=== PATIENT | male | born 1945 | race Caucasian/White ===

== ENCOUNTER 2020-06-06 10:33 | Emergency (ER) | payer OTHER, SELFPAY ==
--- NOTE | ~2020-06-06 | XR_ITS ---
EXAMINATION: XR FOOT, LEFT CLINICAL INFORMATION: Left toe wound. Evaluate for osteomyelitis. COMPARISON: None TECHNIQUE: AP, lateral, and oblique views of the left foot. FINDINGS: The bones are osteopenic. No fracture or dislocation is seen. There are contractures and degenerative changes of the toes. There are degenerative changes at the first MTP joint. There is bone loss of the medial first metatarsal head questionable for postsurgical change. No x-ray evidence of osteomyelitis is seen. There are calcaneal spurs. There is soft tissue arterial calcification. XR/XR foot LT min 3V IMPRESSION: No x-ray evidence of osteomyelitis. Severe osteopenia.
[2020-06-06 10:53] VITALS: BP 136/84; PULSE 108; RESP 18; TEMP 37.2; O2SAT 98
[2020-06-06 11:02] VITALS: BP 136/84; BP 142/70; PULSE 100; PULSE 108; RESP 18; TEMP 37.2; O2SAT 97; O2SAT 98; BMI 26.6
[2020-06-06 11:21] LABS: MANUAL DIFF FLAG NO
[2020-06-06 11:23] LABS: Basophils Absolute Auto 0.1 X10*3/uL (0.0-0.2); Basophils Percent Auto 0.7 % (0-2); Eosinophils Absolute Auto 0.5 X10*3/uL (0.0-0.4); Eosinophils Percent Auto 5.2 % (0-4); Hematocrit 40.6 % (42-52); Hemoglobin 13.3 g/dl (14.0-18.0); Imm Gran Abs Auto 0.02 X10*3/uL (0.00-0.03); Imm Gran Pct Auto 0.2 % (0.0-0.4); Lymphocytes Absolute Auto 1.2 X10*3/uL (1.2-4.9); Lymphocytes Percent Auto 14.1 % (20-40); Mean Corpuscular HGB Conc 32.8 g/dl (31.0-36.0); Mean Corpuscular Volume 97.6 fL (80-98); Mean Platelet Volume 10.3 fL (9.4-12.4); Monocytes Absolute Auto 0.4 X10*3/uL (0.1-1.2); Neutrophils Absolute Auto 6.5 X10*3/uL (2.0-8.3); Neutrophils Percent Auto 74.8 % (45-73); Platelet Count 236 X10*3/uL (160-400); Red Blood Count 4.16 X10*6/uL (4.60-5.80); Red Cell Distribution Width 14.6 % (11.0-16.0); White Blood Count 8.6 X10*3/uL (4.8-10.8)
[2020-06-06 11:30] LABS: Partial Thromboplastin Time 56.8 SEC (24.1-38.0)
[2020-06-06 11:34] LABS: Prothrombin Time 72.1 SEC (10.8-13.0)
[2020-06-06 11:53] LABS: Lactic Acid 2.4 mmol/L (0.5-2.0)
[2020-06-06 12:32] LABS: Glucose Urine UA NEG (NEG); Leukocyte Esterase Urine NEG (NEG); Nitrite Urine NEG (NEG); Urine Blood NEG (NEG); Urine Ketones NEG (NEG); Urine Protein NEG (NEG-TRACE)
[2020-06-06 12:34] LABS: Appearance Urine CLEAR; Color Urine YELLOW
[2020-06-06 13:19] LABS: Reflex Lactate? Lactic Acid Added
[2020-06-06] MEDS: 0.9 % Sodium Chloride 500 ML IV (13:31)
[2020-06-06 14:16] LABS: RBC Urine 0 /HPF (0); Squamous Epithelial Cell Urine 1+ /LPF; Urine Talc Crystals TRACE /LPF; WBC Urine 0 /HPF (0-4)
[2020-06-06 14:36] LABS: Alanine Aminotransferase 14 U/L (0-40); Albumin Level 3.5 g/dL (3.5-5.0); Alkaline Phosphatase 108 U/L (39-117); Anion Gap 13 (12-20); Aspartate Amino Transferase 15 U/L (5-37); Bilirubin Total 0.4 mg/dL (0.0-1.0); Blood Urea Nitrogen 11 mg/dL (9-16); Calcium 8.3 mg/dL (8.4-10.2); Carbon Dioxide 25 mmol/L (22-29); Chloride 107 mmol/L (96-108); Creatinine Clr Calc Pharmacy 82.8; Estimated Glomerular Filt Rate > 60; Glucose Random 154 mg/dL (60-115); Potassium 4.4 mmol/L (3.3-5.1); Sodium 141 mmol/L (135-145)
[2020-06-06 14:38] LABS: ~Lactic Acid-LAB USE ONLY 2.4 mmol/L (0.5-2.0)
--- NOTE | 2020-06-06 14:48 | ED_ITS ---
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 Per son who is his healthcare proxy reports that he initially stop that on a door a months or so ago it was healing okay and about 4 days ago it started open back up and noticed that there was a blistering type formation on top of the toe. He denies any fever or chills. Otherwise has no other complaints. complaint: abscess/boil Onset (ago): day(s) Tetanus up to date: yes Exacerbating factors: none Treatments prior to arrival: none Related Data Previous Rx's Medication Instructions Recorded doxycycline monohydrate 100 mg PO BID 10 Days #20 cap 06/06/20 Allergies Allergy/AdvReac Type Severity Reaction Status Date / Time No Known Allergies Allergy Verified 06/06/20 11:01 [No Known Allergies*] Review of Systems Review of Systems: Constitutional: No Weight loss, No Fever, No Chills, No Night Sweats, No Fatigue, No Malaise ENT/Mouth: No Hearing loss, No Ear Pain, No Nasal Congestion, No Sinus Pain, No Hoarseness, No sore throat, No Rhinorrhea, No Swallowing Difficulty Eyes: No Eye Pain, No Swelling, No Redness, No Foreign Body, No Discharge, No Vision Changes Cardiovascular: No Chest Pain, No SOB, No Dyspnea on Exertion, No Orthopnea, No Edema, No Palpitations Respiratory: No Cough, No Sputum, No Wheezing, No Dyspnea Gastrointestinal: No Nausea, No Vomiting, No Diarrhea, No Constipation, No abdominal Pain, No Hematochezia, No Melena Genitourinary: No Dysuria, No Urinary Frequency, No Hematuria, No Urinary Incontinence, No Urgency, No Flank Pain, No Urinary Flow Changes, No Hesitancy Musculoskeletal: No joint pain, No Myalgias, No Joint Swelling Skin: No Skin Lesions, No rash, , as noted per HPI Neuro: No Weakness, No Numbness, No Paresthesias, No Loss of Consciousness, No Dizziness, No Headache Psych: No Social Issues Heme/Lymph: No Bruising, No Bleeding,No Lymphadenopathy Endocrine: No Polyuria, No Polydipsia, No Temperature Intolerance Yes all other systems are reviewed and are negative [facility] Past Medical History Medical History (Updated 06/06/20 @ 15:29 by Dario Patterson NP) CVA (cerebral vascular accident) Diabetes Hyperlipidemia Social History Social History Alcohol intake: never Smoking Status: Never smoker Use of substances other than those prescribed or required for medical reasons: No Advance Directives: No Advance Directives Information Provided: Yes Physical Exam Vital Signs: Vital Signs: Last Vital Signs Temp 99 F 06/06/20 15:12 Pulse 104 H 06/06/20 15:12 Resp 17 06/06/20 15:12 BP 127/76 06/06/20 15:12 Pulse Ox 97 06/06/20 15:12 Body Mass Index 26.6 Reviewed Const: Other: Appears in contracted state on the left side Found patient of stated age lying supine in bed smiling with greeting. In no acute distress. General: cooperative; No acute distress or intoxicated appearing Nutritional Appearance: average body habitus Orientation/consciousness: patient oriented x3 HENMT: Head: Yes normal to inspection Ears: hearing grossly normal bilaterally Eyes: General: appearance normal, both eyes and all related structures Visual Nunez: normal visual nunez by confrontation Neck: Neck: Yes normal visual inspection, No positive Brudzinski's sign, No positive Kernig's sign and No tender Thyroid: Thyroid normal Chest: Chest palpation & inspection: normal inspection of the chest Resp: Effort & Inspection: normal respiratory effort Auscultation: clear to auscultation bilaterally Cardio: Jugular venous distension: no JVD Rhythm: regular rhythm Heart sounds: S1 normal heart sound present and S2 normal heart sound present GI: Inspection: Yes normal to inspection Percussion: Yes normal to percussion Auscultation: normal bowel sounds : General: Yes no CVA tenderness Back/Spine/Pelvis: Back: no CVA tenderness Skin: Other: General skin exam: no rashes or lesions noted Neuro: General: patient oriented x3 Extrem: General: Yes normal to inspection Right upper extremity: full ROM Course Course Course Narrative: Labs without evidence of leukocytosis. Slight lactic acidosis type 2 likely secondary to the anti diabetic medication. Case discussed with Dr. Lucas who came and evaluated patient at bedside was able to de roof the granulated area over the toe and had some purulent discharge or anything that was cleared out and cauterized using cautery sticks. No overt signs of infection. Given the labs are reassuring recommendation by Dr. Lucas was to send patient home with close outpatient follow-up and can make referrals to wound care from office. I spoke to patient as well as the son who is the healthcare proxy and primary caregiver agreeable plan. Will discharge home with doxycycline x 10 days Reevaluation(s) Reevaluation #1: Lab shows supratherapeutic INR of 6 he is on Coumadin will hold next 2 doses and have repeat on Thursday prior to taking his Coumadin. Consultations Consultation #1: Case discussed with general surgeon Dr. Lucas who came to evaluate patient at bedside. MDM - Skin/Abscess/Foreign Bdy Lab Data Result diagrams: 06/06/20 11:13 06/06/20 13:53 Labs: Lab Results 06/06/20 06/06/20 06/06/20 Range/Units 11:13 11:13 11:13 WBC 8.6 (4.8-10.8) X10*3/uL RBC 4.16 L (4.60-5.80) X10*6/uL Hgb 13.3 L (14.0-18.0) g/dl Hct 40.6 L (42-52) % MCV 97.6 (80-98) fL MCH 32.0 (27.0-33.0) pg MCHC 32.8 (31.0-36.0) g/dl RDW 14.6 (11.0-16.0) % Plt Count 236 (160-400) X10*3/uL MPV 10.3 (9.4-12.4) fL Immature Gran % (Auto) 0.2 (0.0-0.4) % Neut % (Auto) 74.8 H (45-73) % Lymph % (Auto) 14.1 L (20-40) % [place] % (Auto) 5.0 (2-11) % Eos % (Auto) 5.2 H (0-4) % Baso % (Auto) 0.7 (0-2) % Lymph # (Auto) 1.2 (1.2-4.9) X10*3/uL [place] # (Auto) 0.4 (0.1-1.2) X10*3/uL Eos # (Auto) 0.5 H (0.0-0.4) X10*3/uL Baso # (Auto) 0.1 (0.0-0.2) X10*3/uL Abs Immat Gran (auto) 0.02 (0.00-0.03) X10*3/uL Absolute Neuts (auto) 6.5 (2.0-8.3) X10*3/uL Absolute Nucleated RBC 0.000 (0.0-0.012) X10*3/uL Nucleated RBC % (auto) 0.0 (0.0-0.2) /100WBC PT 72.1 H (10.8-13.0) SEC INR 6.0 H* (0.9-1.1) APTT 56.8 H (24.1-38.0) SEC Sodium (135-145) mmol/L Potassium (3.3-5.1) mmol/L Chloride (96-108) mmol/L Carbon Dioxide (22-29) mmol/L Anion Gap (12-20) BUN (9-16) mg/dL Creatinine (0.5-1.4) mg/dL Estim Creat Clear Calc Estimated GFR Random Glucose (60-115) mg/dL Lactic Acid 2.4 H* (0.5-2.0) mmol/L Lactic Acid Fup @ 2Hr (0.5-2.0) mmol/L Calcium (8.4-10.2) mg/dL Total Bilirubin (0.0-1.0) mg/dL AST (5-37) U/L ALT (0-40) U/L Alkaline Phosphatase (39-117) U/L Total Protein (6.5-8.0) g/dL Albumin (3.5-5.0) g/dL Urine Color Urine Appearance Urine pH (5.0-8.0) Ur Specific [place] (1.005-1.025) Urine Protein (NEG-TRACE) MG/DL Urine Glucose (UA) (NEG) MG/DL Urine Ketones (NEG) MG/DL Urine Blood (NEG) Urine Nitrite (NEG) Ur Leukocyte Esterase (NEG) Urine RBC (0) /HPF Urine WBC (0-4) /HPF Ur Squamous Epith Cells /LPF Talc Crystals /LPF Urine Bacteria /LPF 06/06/20 06/06/20 06/06/20 Range/Units 11:40 13:53 13:53 WBC (4.8-10.8) X10*3/uL RBC (4.60-5.80) X10*6/uL Hgb (14.0-18.0) g/dl Hct (42-52) % MCV (80-98) fL MCH (27.0-33.0) pg MCHC (31.0-36.0) g/dl RDW (11.0-16.0) % Plt Count (160-400) X10*3/uL MPV (9.4-12.4) fL Immature Gran % (Auto) (0.0-0.4) % Neut % (Auto) (45-73) % Lymph % (Auto) (20-40) % [place] % (Auto) (2-11) % Eos % (Auto) (0-4) % Baso % (Auto) (0-2) % Lymph # (Auto) (1.2-4.9) X10*3/uL [place] # (Auto) (0.1-1.2) X10*3/uL Eos # (Auto) (0.0-0.4) X10*3/uL Baso # (Auto) (0.0-0.2) X10*3/uL Abs Immat Gran (auto) (0.00-0.03) X10*3/uL Absolute Neuts (auto) (2.0-8.3) X10*3/uL Absolute Nucleated RBC (0.0-0.012) X10*3/uL Nucleated RBC % (auto) (0.0-0.2) /100WBC PT (10.8-13.0) SEC INR (0.9-1.1) APTT (24.1-38.0) SEC Sodium 141 (135-145) mmol/L Potassium 4.4 (3.3-5.1) mmol/L Chloride 107 (96-108) mmol/L Carbon Dioxide 25 (22-29) mmol/L Anion Gap 13 (12-20) BUN 11 (9-16) mg/dL Creatinine 0.72 (0.5-1.4) mg/dL Estim Creat Clear Calc 82.8 Estimated GFR > 60 Random Glucose 154 H (60-115) mg/dL Lactic Acid (0.5-2.0) mmol/L Lactic Acid Fup @ 2Hr 2.4 H* (0.5-2.0) mmol/L Calcium 8.3 L (8.4-10.2) mg/dL Total Bilirubin 0.4 (0.0-1.0) mg/dL AST 15 (5-37) U/L ALT 14 (0-40) U/L Alkaline Phosphatase 108 (39-117) U/L Total Protein 7.0 (6.5-8.0) g/dL Albumin 3.5 (3.5-5.0) g/dL Urine Color YELLOW Urine Appearance CLEAR Urine pH 6.0 (5.0-8.0) Ur Specific [place] 1.010 (1.005-1.025) Urine Protein NEG (NEG-TRACE) MG/DL Urine Glucose (UA) NEG (NEG) MG/DL Urine Ketones NEG (NEG) MG/DL Urine Blood NEG (NEG) Urine Nitrite NEG (NEG) Ur Leukocyte Esterase NEG (NEG) Urine RBC 0 (0) /HPF Urine WBC 0 (0-4) /HPF Ur Squamous Epith Cells 1+ /LPF Talc Crystals TRACE /LPF Urine Bacteria NONE /LPF Discharge Plan Discharge Clinical Impression: Abscess of skin or subcutaneous tissue Qualifiers: Site of cutaneous abscess: extremity Site of cutaneous abscess of extremity: foot Patient Disposition: Home, Self-Care Instructions: Cellulitis (ED) Additional Instructions: Change her dressings daily Follow-up with Dr. Lucas in office Take antibiotic as prescribed Your Coumadin number (INR 6) was high you to skip the next 2 doses of your Coumadin Check her Coumadin level on Thursday and resume based on this Return to emergency room if any concerns or worsening symptoms Thank you Your prescription of your antibiotic was sent to your [facility] pharmacy [facility] Prescriptions: New doxycycline monohydrate 100 mg capsule 100 mg PO BID 10 Days Qty: 20 RF: 0 Referrals: Cecilia Mcfarland DO [Primary Care Provider] - 2 days Shin Lucas MD [Physician] - 5 days
[2020-06-06 15:12] VITALS: BP 127/76; PULSE 104; RESP 17; TEMP 37.2; O2SAT 97
[2020-06-06 16:00] LABS: Reflex Lactate? 2 Y
== END 2020-06-06 16:11 | disposition home or self-care (01) ==
PROVIDERS: Nurse Practitioner Primary Care; Emergency Provider Emergency Medicine; PCP Internal Medicine
DX: L03.116 Cellulitis of left lower limb (principal); M79.672 Pain in left foot; Z79.899 Other long term (current) drug therapy; Z79.01 Long term (current) use of anticoagulants
CPT/HCPCS: 36415; 73630; 80053; 81001; 83605; 85025; 85610; 85730; 87040; 96360; 99284

== ENCOUNTER 2020-06-22 13:50 | Outpatient (RCR) | payer OTHER, SELFPAY | END 2020-09-05 09:11 | disposition home or self-care (01) | LOC: HO.WCC 13:50 | PROVIDERS: Visit Provider Physician Assistant | DX: E11.621 Type 2 diabetes mellitus with foot ulcer (principal); L97.529 Non-pressure chronic ulcer of other part of left foot with unspecified severity; I69.352 Hemiplegia and hemiparesis following cerebral infarction affecting left dominant side | CPT/HCPCS: 97597; 97602; 99212; 99213 ==

== ENCOUNTER 2020-07-25 10:19 | Outpatient (REF) | payer OTHER, SELFPAY ==
--- NOTE | ~2020-07-25 | US_ITS ---
EXAMINATION: US DOPPLER LOWER EXTREMITY ARTERIAL, LEFT CLINICAL INFORMATION: Wound COMPARISON: None TECHNIQUE: Grayscale, color Doppler, spectral Doppler of the left lower extremity arterial system was performed. FINDINGS: LEFT: Mild diffuse atherosclerosis without significant focal stenosis. Common femoral: PSV 57 centimeters per second. Biphasic waveform. Deep femoral: PSV 45 centimeters per second. Biphasic waveform. Proximal superficial femoral: PSV 96 centimeters per second. Biphasic waveform. Mid superficial femoral: PSV 72 centimeters per second. Biphasic waveform. Distal superficial femoral: PSV 43 centimeters per second. Biphasic waveform. Popliteal: PSV 60 centimeters per second. Biphasic waveform. Posterior tibial: PSV 58 centimeters per second. Biphasic waveform. US/US arterial duplex LE LT IMPRESSION: Biphasic waveforms throughout which may indicate aortoiliac level disease. Mild diffuse atherosclerosis without significant focal stenosis in the left lower extremity.
== END 2020-07-25 10:20 | disposition home or self-care (01) ==
LOC: HO.US 10:19
PROVIDERS: Visit Provider Physician Assistant
DX: I69.352 Hemiplegia and hemiparesis following cerebral infarction affecting left dominant side (principal); E11.621 Type 2 diabetes mellitus with foot ulcer; I73.9 Peripheral vascular disease, unspecified
CPT/HCPCS: 93926

== ENCOUNTER 2021-07-07 17:59 | Emergency (ER) | payer OTHER, SELFPAY ==
--- NOTE | 2021-07-07 18:32 | ED_ITS ---
HPI - Wound/Laceration General Chief Complaint: Skin/Abscess/Foreign Body Stated Complaint: skin tear Time Seen by Provider: 07/07/21 18:32 Source: patient, EMS and foreign language interpreter Mode of arrival: EMS Limitations: no limitations History of Present Illness HPI narrative: 76 y/o male with history of CVA with left sided hemiparesis, DM, HLD, afib on Coumadin, hx PE, who presents to the ER from home via EMS with a at bleeding left elbow wound that started several hours earlier today. Patient's does not know how the wound was sustained but she does notice bleeding earlier today. She states it was ?dripping like a faucet? and she was unable to control the bleeding. She states the area is a small skin tear on the left elbow. He does not complain of any pain. His INR has been subtherapeutic and they have been bridging him with subcu Lovenox at home. His last INR was done 2 days ago and it was 1.0. Onset (ago): hour(s) Extremity Location: left: elbow Place: home Context: accidental Associated symptoms: other (bleeding) Treatments prior to arrival: bandage Related Data Previous Rx's Medication Instructions Recorded doxycycline monohydrate 100 mg 100 mg PO BID 10 Days #20 cap 06/06/20 capsule Allergies Allergy/AdvReac Type Severity Reaction Status Date / Time No Known Allergies Allergy Verified 06/06/20 11:01 [No Known Allergies*] Review of Systems Review of Systems: Constitutional: No Fever, No Chills Cardiovascular: No Chest Pain, No SOB Respiratory: No Cough, No Sputum, No Wheezing, No dyspnea Gastrointestinal: No Nausea, No Vomiting, No abdominal Pain, No Hematochezia, No Melena Genitourinary: No Hematuria Musculoskeletal: No joint pain, No Myalgias Skin: + Skin Lesions, No rash Neuro: + Weakness, No Numbness, No Dizziness, No Headache Psych: No Anxiety/Panic, No Depression Heme/Lymph: + Bruising, No Lymphadenopathy PMFSH Past Medical History Medical History (Updated 07/07/21 @ 19:18 by KIRK Shepherd) CVA (cerebral vascular accident) Diabetes Hyperlipidemia Social History Social History Alcohol intake: never Advance Directives: Yes Advance Directives Information Provided: No Advance Directives on File: No Physical Exam Vital Signs: Vital Signs: Last Vital Signs Temp 99.0 F 07/07/21 18:44 Pulse 91 07/07/21 18:44 Resp 18 07/07/21 18:44 BP 133/77 07/07/21 18:44 Pulse Ox 98 07/07/21 18:44 BMI result Body Mass Index 21.6 Appearance: Alert. Oriented X3. No acute distress. HEENT: normal inspection CVS: Normal heart rate and rhythm. Pulses normal. Respiratory: No respiratory distress. Skin: Skin warm and dry. Normal skin color. Normal skin turgor. No rashes. Extremities: Scattered ecchymosis on bilateral upper extremities. Left dorsal aspect of the elbow with a curved 2 cm skin tear with active oozing. Wound is superficial with surrounding ecchymosis. Nontender. Normal passive range of motion of the elbow. Neurovascularly intact distally Neuro: Oriented X 3. Left-sided hemiparesis noted, normal speech Course Course Course Narrative: 76-year-old male with history of stroke 9 years ago with left-sided hemiparesis, history of PE, history of AFib on Coumadin who presents to the ER with a small skin tear to the left elbow that is actively oozing. Unknown trauma or injury. Patient has bridging with subQ Lovenox for subtherapeutic INR. He had excessive bleeding at home that was unable to be controlled. Will check coags. Wound was able to be closed with Steri-Strips and a pressure dressing was applied with cessation of bleeding. Reevaluation(s) Reevaluation #1: INR 1.9. will hold Lovenox today. Stable for d/c home with outpatient follow up. MDM - Wound/Laceration Lab Data Labs: Lab Results 07/07/21 Range/Units 19:10 PT 22.3 H (9.9-13.0) SEC INR 1.9 H (0.9-1.1) APTT 44.7 H (24.1-38.0) SEC Procedures Laceration Laceration 1: Site: upper extremity Side (If applicable): left Size (cm): 2 Description: flap Depth: simple, single layer Pre-repair: irrigated extensively and deep structures intact Skin layer closed with: other (Steri-Strips) Discharge Plan Discharge Clinical Impression: Skin tear of left upper extremity Patient Disposition: Home, Self-Care Instructions: Skin Tear (ED) Additional Instructions: Your INR today was 1.9. Steri strips were used to close the wound. These will fall off on their own, do not peel them off. If bleeding recurs, apply pressure for 10-15 minutes. Follow up with your doctor this week. If you develop new or worsening symptoms call 911 or come back to the ER for further evaluation. Prescriptions: No Action doxycycline monohydrate 100 mg capsule 100 mg PO BID 10 Days Qty: 20 0RF
[2021-07-07 18:44] VITALS: BP 133/77; BP 152/80; PULSE 88; PULSE 91; RESP 18; TEMP 37.2; O2SAT 97; O2SAT 98; BMI 21.6
[2021-07-07 19:30] LABS: INTERNATIONAL NORM RATIO 1.9 (0.9-1.1); Prothrombin Time 22.3 SEC (9.9-13.0)
[2021-07-07 19:32] LABS: Partial Thromboplastin Time 44.7 SEC (24.1-38.0)
== END 2021-07-07 22:07 | disposition home or self-care (01) ==
PROVIDERS: Physician Assistant; Emergency Provider Emergency Medicine; PCP Internal Medicine
DX: S51.012A Laceration without foreign body of left elbow, initial encounter (principal); I48.91 Unspecified atrial fibrillation; W26.9XXA Contact with unspecified sharp object(s), initial encounter; Y93.9 Activity, unspecified; Y92.009 Unspecified place in unspecified non-institutional (private) residence as the place of occurrence of the external cause; Y99.9 Unspecified external cause status; Y92.9 Unspecified place or not applicable; Z79.899 Other long term (current) drug therapy; Z79.01 Long term (current) use of anticoagulants
CPT/HCPCS: 12001; 36415; 85610; 85730; 99284

== ENCOUNTER 2024-06-20 08:14 | Emergency (ER) | payer OTHER, SELFPAY ==
--- NOTE | ~2024-06-20 | XR_ITS ---
EXAMINATION: XR CHEST CLINICAL INFORMATION: vomiting r/o aspiration COMPARISON: November 04, 2016 TECHNIQUE: Frontal view of the chest was obtained. FINDINGS: No consolidation, pleural effusion or pneumothorax. Cardiomediastinal silhouette size is normal. Calcified plaque thoracic aorta. Mild multilevel thoracic stenosis. Elevated left shoulder with respect to the opposite side. Right scapula overlaps the periphery of the right hemithorax. Osteopenia versus osteoporosis. XR/XR chest 1V IMPRESSION: No acute airspace disease. Electronically signed by: Leeroy Peterson MD 06/20/2024 09:21 AM [facility]
--- NOTE | ~2024-06-20 | CT_ITS ---
EXAMINATION: CT ABDOMEN PELVIS WITHOUT IV CONTRAST HISTORY: LLQ abd pain, N/V/D COMPARISON: Comparison is made with the prior examination dated 11/07/2016. TECHNIQUE: CT scan of the abdomen and pelvis was performed without contrast using standard departmental protocol. Coronal and sagittal reformatted images were generated and reviewed. Oral contrast material was not administered at the request of the referring physician. This CT exam was performed with one or more of the following dose reduction techniques: automated exposure control, adjustment of the mA and/or kV according to patient size, use of iterative reconstruction technique. DLP: 753 mGy-cm FINDINGS: LOWER CHEST: There is mild bronchial wall thickening in the right lower lobe. The visualized left lung base is clear. There is no pleural effusion. CARDIOVASCULATURE: The heart is normal in size. There is no pericardial effusion. LIVER: The liver is normal in size and contour. The liver has an unremarkable unenhanced appearance. GALLBLADDER / BILE DUCTS: The gallbladder is unremarkable. There is no intra or extrahepatic biliary ductal dilatation. SPLEEN: The spleen is normal in size and has an unremarkable unenhanced appearance. PANCREAS: The pancreas has an unremarkable unenhanced appearance. ADRENAL GLANDS: Unremarkable. KIDNEYS/RETROPERITONEUM: No renal calculi are identified. There is no hydronephrosis. LYMPH NODES: No retroperitoneal lymphadenopathy is identified in the abdomen or pelvis. VASCULATURE: The abdominal aorta demonstrates atherosclerotic calcification, but is normal in caliber. MESENTERY/PERITONEUM: No free fluid. No masses. There is no free intraperitoneal gas. STOMACH: The stomach is unremarkable. SMALL BOWEL: The small bowel is normal in caliber. COLON: There is a large amount of stool in the ascending and transverse colon and a very large amount of stool in the rectosigmoid colon. APPENDIX: The appendix is mildly dilated measuring 7 mm in diameter and is fluid-filled. No periappendiceal inflammatory changes are seen to suggest acute appendicitis. However, a mucocele is not excluded. URINARY BLADDER/PELVIC ORGANS: The urinary bladder is unremarkable. The prostate is normal in size. BONES / SOFT TISSUES: There is degenerative disc disease of the spine. CT/CT abdomen pelvis wo IV con IMPRESSION: 1. Large amount of stool in the ascending and transverse colon and a very large amount of stool in the rectosigmoid colon. 2. Dilated, fluid-filled appendix without surrounding inflammatory changes to suggest acute appendicitis. However, a mucocele is not excluded. Colonoscopy is recommended if this has not recently been performed. Electronically signed by: Lamont Amaya MD 06/20/2024 11:12 AM [facility]
--- NOTE | 2024-06-20 08:40 | ED.GENADULT ---
HPI - General Adult General Chief complaint: Nausea/Vomiting/Diarrhea Stated complaint: N/V/D X4D,LLQ PAIN PER EMS Time Seen by Provider: 06/20/24 08:23 Source: patient, family (son/ HCP), EMS and oral and maxillofacial pathologist (french) Mode of arrival: EMS Limitations: language barrier (french) History of Present Illness ED Provider: ALEXANDREA WILSON PA-C HPI narrative: 79 year old male with pmhx significant for CVA with left sided hemiparesis, DM, HDL, afib on coumadin, hx PE presents to the ED today via EMS from home for evaluation of nausea, vomiting, diarrhea, left lower quadrant abdominal pain x4 days. Abdominal pain has been intermittent. No clear exacerbating or relieving factors. Denies hx of similar. Admits to nonbloody loose stools. Last bowel movement was yesterday. He denies any recent antibiotics. No recent travel outside. He has been able to take his daily medications. Normal p.o. intake. He currently lives at home with his . His grand children are around him often. He was unsure of any sick contacts. Related Data Previous Rx's ?Medication ?Instructions ?Recorded doxycycline monohydrate 100 mg 100 mg PO BID 10 days #20 caps 06/06/20 capsule ondansetron 4 mg disintegrating 4 mg PO DAILY PRN nausea and 06/20/24 tablet vomiting 5 days #10 tabs polyethylene glycol 3350 17 17 g PO DAILY PRN constipation 06/20/24 gram/dose oral powder (Miralax) #238 grams Allergies Allergy/AdvReac Type Severity Reaction Status Date / Time No Known Allergies Allergy Verified 06/20/24 08:45 [No Known Allergies*] Review of Systems Review of Systems: Constitutional: No fever, chills, fatigue, night sweats, weight changes ENT/Mouth: No ear pain, hearing loss, nasal congestion, sinus pain, rhinorrhea, sore throat Eyes: No eye pain, swelling, redness, vision changes, discharge Cardio: No chest pain, palpitations, PENA, orthopnea, peripheral edema Pulm: No SOB, cough, sputum, wheezing, dyspnea, hemoptysis GI: No hematemesis, constipation, hematochezia, melena, +N/V/D, +abd pain : No irregular bleeding, dysuria, frequency, urgency, hesitancy, hematuria, flank pain, urinary flow changes, urinary incontinence or retention MSK: No back pain, neck pain, joint pain, myalgias Skin: No lesions, rashes Neuro: No weakness, numbness, paresthesias, LOC, dizziness, headache Psych: No anxiety/panic, depression, SI/HI, AH/VH All other systems reviewed and are negative. [facility] Past Medical History Attestation statement: The following information was validated with the patient. Source: old records reviewed and nursing notes reviewed Medical History CVA (cerebral vascular accident) Hyperlipidemia Diabetes Social History Social History Alcohol intake: never Advance Directives: Yes Advance Directives Information Provided: No Advance Directives on File: No Physical Exam ED Vital Signs: Vital Signs - 24 hr 06/20/24 08:41 06/20/24 10:15 Temperature 97.4 F 97.9 F Pulse Rate 90 86 Respiratory Rate 18 21 H Blood Pressure 123/74 112/69 Pulse Oximetry 98 98 Oxygen Delivery Method Room Air Room Air BMI result Body Mass Index 2643.4 General: well appearing, in no acute distress. Skin: Warm, dry, intact. No rashes or lesions. Head: Normocephalic, atraumatic. EENT: Hearing is intact b/l. Conjunctiva clear. PERRLA. EOM intact. Moist mucous membranes.? Neck: Supple without LAD Cardiac: Chest wall symmetric. RRR. Lungs: Normal respiratory effort without accessory muscle use. CTA bilaterally. No rales, rhonchi, or wheezes.? Abdomen: soft, non-tender, non-distended. No rebound tenderness or guarding. Positive BS x4. Rectal exam performed with Horacio shell reprint operator present in room to railroad accountant. Normal rectal sphincter tone. No external masses or lesions. Palpable soft stool in rectal vault. Stool is normal in appearance. Back: No midline spinous or paraspinal tenderness. No step off deformity. Ext: +left UE/LE hemipareisis Neuro: AOx3. Normal speech Course Course Course Narrative: 1131 -- CBC without leukocytosis or left shift. Normocytic anemia, H and H stable. Chronic when compared to priors. Chemistry without acute electrolyte abnormality requiring intervention. No [place]. Random glucose 129. Troponin WNL. Lipase WNL. Liver function at baseline. Urine without infection. Negative COVID, flu, RSV. Chest x-ray without infiltrate or consolidation to suggest pneumonia. No effusion. > CT abdomen showing large amount of stool in the ascending and transverse colon, very large amount of stool at a rectosigmoid colon. Also she was dilated, fluid-filled appendix without surrounding inflammatory changes however mucocele is not excluded. Plan for rectal exam to determine if patient could benefit from disimpaction v enema. will reach out to dr. davis w/ general surgery to discuss ct findings. 1600 -- c diff negative. gi panel pending. I spoke with general surgeon dr. davis who has reviewed CT. States CT is unremarkable, no surgical intervention warranted. > I performed RONAN with the technical staff engineer in room to railroad accountant. There is palpable soft stool in rectal vault however this makes it difficult to disimpact patient. I ordered enema and patient had a very large bowel movement afterwards. I discussed all results with patient and son/ HCP. they both feel patient is safe for discharge home and I feel this is reasonable. I offered PT/CM consultations however they are declining at this time. will send zofran for nausea. will send mirlax to help move bowels. advised increasing oral hydration with GI follow-up. Patient has remained stable throughout ED visit today. Discussed worrisome signs and symptoms and when to return to the ED. All questions answered at this time. Patient is agreeable with disposition and stable for discharge. Medications Administered Discontinued Medications Generic Name Dose Route Start Last Admin Trade Name Yessica PRN Reason Stop Dose Admin Acetaminophen 650 mg 06/20/24 10:54 06/20/24 11:46 Acetaminophen 325 Mg Tablet PO 06/20/24 10:55 650 mg ONCE ONE Administration Ondansetron HCl 4 mg 06/20/24 10:54 06/20/24 11:46 Ondansetron Odt 4 Mg Tab.Rapdis TRANSLINGU 06/20/24 10:55 4 mg ONCE ONE Administration Medical Decision Making Medical Decision Making [facility] Narrative: 79 year old male with pmhx significant for CVA with left sided hemiparesis, DM, HDL, afib on coumadin, hx PE presents to the ED today via EMS from home for evaluation of nausea, vomiting, diarrhea, left lower quadrant abdominal pain x4 days. vital signs stable, afebrile. he is nontoxic appearing and in NAD. exam is quite benign. soft, non-tender, non-distended. No rebound tenderness or guarding. Positive BS x4. Rectal exam performed with Horacio shell reprint operator present in room to railroad accountant. Normal rectal sphincter tone. No external masses or lesions. Palpable soft stool in rectal vault. Stool is normal in appearance. Differential diagnoses: appendicitis, diverticulitis, diverticulosis, UTI, cdiff, gastroenteritis, constipation Abdominal exam without peritoneal signs. No evidence of acute abdomen at this time. Well appearing. Low suspicion for acute hepatobiliary disease (including acute cholecystitis), acute infectious processes (pneumonia, hepatitis, pyelonephritis), vascular catastrophe, bowel obstruction or viscus perforation, testicular torsion. Presentation not consistent with other acute, emergent causes of abdominal pain at this time. Plan: labs, UA, EKG, CXR, CT AP, serial reassessment Differential Diagnosis Differential Diagnoses: The differential diagnosis associated with the presentation includes as above. Admission/Observation Consideration of admission/observation: Escalation of care including admission/observation considered admission considered. Lab Data MDM Lab Attestation statement: I reviewed the patient's lab results. as above. 06/20/24 09:17 06/20/24 09:17 Labs: Lab Results 06/20/24 06/20/24 06/20/24 Range/Units 09:13 09:17 10:39 WBC 10.4 (4.8-10.8) X10*3/uL RBC 4.09 L (4.60-5.80) X10*6/uL Hgb 13.2 L (14.0-18.0) g/dl Hct 39.4 L (42.0-52.0) % MCV 96.3 (80.0-98.0) fL MCH 32.3 (27.0-33.0) pg MCHC 33.5 (31.0-36.0) g/dl RDW 13.8 (11.0-16.0) % Plt Count 258 (160-400) X10*3/uL MPV 9.7 (9.4-12.4) fL Immature Gran % (Auto) 0.3 (0.0-0.4) % Neut % (Auto) 74.4 H (45-73) % Lymph % (Auto) 14.9 L (20-40) % Cache % (Auto) 5.8 (2-11) % Eos % (Auto) 3.7 (0-4) % Baso % (Auto) 0.9 (0-2) % Lymph # (Auto) 1.6 (1.2-4.9) X10*3/uL Cache # (Auto) 0.6 (0.1-1.2) X10*3/uL Eos # (Auto) 0.4 (0.0-0.4) X10*3/uL Baso # (Auto) 0.1 (0.0-0.2) X10*3/uL Abs Immat Gran (auto) 0.03 (0.00-0.03) X10*3/uL Absolute Neuts (auto) 7.8 (2.0-8.3) x10*3/uL Absolute Nucleated RBC 0.000 (0.0-0.012) X10*3/uL Nucleated RBC % (auto) 0.0 (0.0-0.2) /100WBC Sodium 136 (135-145) mmol/L Potassium 4.2 (3.3-5.1) mmol/L Chloride 104 (96-108) mmol/L Carbon Dioxide 27 (22-29) mmol/L Anion Gap 9 L (12-20) BUN 11 (9-16) mg/dL Creatinine 0.60 (0.5-1.4) mg/dL Estim Creat Clear Calc -28.1 Estimated GFR > 60 Random Glucose 129 H (60-115) mg/dL Calcium 8.8 D (8.4-10.2) mg/dL Magnesium 2.2 (1.6-2.6) mg/dL Total Bilirubin 0.4 (0.0-1.0) mg/dL AST 15 (5-37) U/L ALT 8 (0-40) U/L Alkaline Phosphatase 96 (39-117) U/L Troponin I High Sens 2.7 (<3.5-35.0) ng/L Total Protein 7.7 (6.5-8.0) g/dL Albumin 3.5 (3.5-5.0) g/dL Lipase 8 (8-78) U/L Urine Color Yellow Urine Appearance Clear Urine pH 7.5 (5.0-9.0) Ur Specific [place] 1.010 (1.005-1.025) Urine Protein Negative (Neg-Trace) mg/dL Urine Glucose (UA) Negative (Negative) mg/dL Urine Ketones Negative (Negative) mg/dL Urine Blood Negative (Negative) Urine Nitrite Negative (Negative) Ur Leukocyte Esterase Negative (Negative) Stl C. cayetanensis PCR (Not Detect.) Stool Rotavirus A PCR (Not Detect.) Stl Adenov F 40/41 PCR (Not Detect.) Stool Astrovirus (PCR) (Not Detect.) Stool Campylobacter PCR (Not Detect.) Stool Cryptosporidium PCR (Not Detect.) Stl Sh Tox Pr E STEC PCR (Not Detect.) Stool E coli O157 PCR (Not Detect.) Stl Enterotoxigenic E PCR (Not Detect.) Stool EPEC (PCR) (Not Detect.) Stool EAEC (PCR) (Not Detect.) Stl E. histolytica PCR (Not Detect.) Stool Giardia Lamblia PCR (Not Detect.) Stl P. shigelloides PCR (Not Detect.) Stool Salmonella PCR (Not Detect.) Stool Sapovirus (PCR) (Not Detect.) Stl Shigella/EIEC PCR (Not Detect.) St Y.enterocolitica PCR (Not Detect.) Stool Vibrio (PCR) (Not Detect.) Stl Vibrio cholerae PCR (Not Detect.) Stl Norovirus GI/GII PCR (Not Detect.) C. difficile Tox B Gene (Negative) Influenza Type A (PCR) NEGATIVE (Negative) Influenza Type B (PCR) NEGATIVE (Negative) RSV RNA Qual (PCR) NEGATIVE (Negative) SARS-CoV-2 RNA (RT-PCR) NEGATIVE (Negative) 06/20/24 Range/Units 12:24 WBC (4.8-10.8) X10*3/uL RBC (4.60-5.80) X10*6/uL Hgb (14.0-18.0) g/dl Hct (42.0-52.0) % MCV (80.0-98.0) fL MCH (27.0-33.0) pg MCHC (31.0-36.0) g/dl RDW (11.0-16.0) % Plt Count (160-400) X10*3/uL MPV (9.4-12.4) fL Immature Gran % (Auto) (0.0-0.4) % Neut % (Auto) (45-73) % Lymph % (Auto) (20-40) % Cache % (Auto) (2-11) % Eos % (Auto) (0-4) % Baso % (Auto) (0-2) % Lymph # (Auto) (1.2-4.9) X10*3/uL Cache # (Auto) (0.1-1.2) X10*3/uL Eos # (Auto) (0.0-0.4) X10*3/uL Baso # (Auto) (0.0-0.2) X10*3/uL Abs Immat Gran (auto) (0.00-0.03) X10*3/uL Absolute Neuts (auto) (2.0-8.3) x10*3/uL Absolute Nucleated RBC (0.0-0.012) X10*3/uL Nucleated RBC % (auto) (0.0-0.2) /100WBC Sodium (135-145) mmol/L Potassium (3.3-5.1) mmol/L Chloride (96-108) mmol/L Carbon Dioxide (22-29) mmol/L Anion Gap (12-20) BUN (9-16) mg/dL Creatinine (0.5-1.4) mg/dL Estim Creat Clear Calc Estimated GFR Random Glucose (60-115) mg/dL Calcium (8.4-10.2) mg/dL Magnesium (1.6-2.6) mg/dL Total Bilirubin (0.0-1.0) mg/dL AST (5-37) U/L ALT (0-40) U/L Alkaline Phosphatase (39-117) U/L Troponin I High Sens (<3.5-35.0) ng/L Total Protein (6.5-8.0) g/dL Albumin (3.5-5.0) g/dL Lipase (8-78) U/L Urine Color Urine Appearance Urine pH (5.0-9.0) Ur Specific [place] (1.005-1.025) Urine Protein (Neg-Trace) mg/dL Urine Glucose (UA) (Negative) mg/dL Urine Ketones (Negative) mg/dL Urine Blood (Negative) Urine Nitrite (Negative) Ur Leukocyte Esterase (Negative) Stl C. cayetanensis PCR Not Detected (Not Detect.) Stool Rotavirus A PCR Not Detected (Not Detect.) Stl Adenov F 40/41 PCR Not Detected (Not Detect.) Stool Astrovirus (PCR) Not Detected (Not Detect.) Stool Campylobacter PCR Not Detected (Not Detect.) Stool Cryptosporidium PCR Not Detected (Not Detect.) Stl Sh Tox Pr E STEC PCR Not Detected (Not Detect.) Stool E coli O157 PCR Not applicable (Not Detect.) Stl Enterotoxigenic E PCR Not Detected (Not Detect.) Stool EPEC (PCR) Not Detected (Not Detect.) Stool EAEC (PCR) Not Detected (Not Detect.) Stl E. histolytica PCR Not Detected (Not Detect.) Stool Giardia Lamblia PCR Not Detected (Not Detect.) Stl P. shigelloides PCR Not Detected (Not Detect.) Stool Salmonella PCR Not Detected (Not Detect.) Stool Sapovirus (PCR) Not Detected (Not Detect.) Stl Shigella/EIEC PCR Not Detected (Not Detect.) St Y.enterocolitica PCR Not Detected (Not Detect.) Stool Vibrio (PCR) Not Detected (Not Detect.) Stl Vibrio cholerae PCR Not Detected (Not Detect.) Stl Norovirus GI/GII PCR Detected A (Not Detect.) C. difficile Tox B Gene NEGATIVE (Negative) Influenza Type A (PCR) (Negative) Influenza Type B (PCR) (Negative) RSV RNA Qual (PCR) (Negative) SARS-CoV-2 RNA (RT-PCR) (Negative) Independent Interpretation I performed an independent interpretation of an: EKG, Plain X-Ray and CT Scan Interpretation: CXR without focal infiltrate or consolidation CT A/P with large amount of stool in colon, no obstruction EKG showing sinus rhythm with first-degree AV block with PACs, rate 83 beats per minute, no acute ischemic changes or ST elevation Radiology Impression Discussion of test interpretation with radiology: I have reviewed the radiologist's reading. Radiologist Impression: Procedure(s): CT abdomen pelvis wo IV con Accession Number(s): [id number] cc: Alexandrea Wilson; Amanda Cain MD~ Report Number: [id number]: Total DLP = 753.00 mGy-cm EXAMINATION: CT ABDOMEN PELVIS WITHOUT IV CONTRAST HISTORY: LLQ abd pain, N/V/D COMPARISON: Comparison is made with the prior examination dated 11/07/2016. TECHNIQUE: CT scan of the abdomen and pelvis was performed without contrast using standard departmental protocol. Coronal and sagittal reformatted images were generated and reviewed. Oral contrast material was not administered at the request of the referring physician. This CT exam was performed with one or more of the following dose reduction techniques: automated exposure control, adjustment of the mA and/or kV according to patient size, use of iterative reconstruction technique. DLP: 753 mGy-cm FINDINGS: LOWER CHEST: There is mild bronchial wall thickening in the right lower lobe. The visualized left lung base is clear. There is no pleural effusion. CARDIOVASCULATURE: The heart is normal in size. There is no pericardial effusion. LIVER: The liver is normal in size and contour. The liver has an unremarkable unenhanced appearance. GALLBLADDER / BILE DUCTS: The gallbladder is unremarkable. There is no intra or extrahepatic biliary ductal dilatation. SPLEEN: The spleen is normal in size and has an unremarkable unenhanced appearance. PANCREAS: The pancreas has an unremarkable unenhanced appearance. ADRENAL GLANDS: Unremarkable. KIDNEYS/RETROPERITONEUM: No renal calculi are identified. There is no hydronephrosis. LYMPH NODES: No retroperitoneal lymphadenopathy is identified in the abdomen or pelvis. VASCULATURE: The abdominal aorta demonstrates atherosclerotic calcification, but is normal in caliber. MESENTERY/PERITONEUM: No free fluid. No masses. There is no free intraperitoneal gas. STOMACH: The stomach is unremarkable. SMALL BOWEL: The small bowel is normal in caliber. COLON: There is a large amount of stool in the ascending and transverse colon and a very large amount of stool in the rectosigmoid colon. APPENDIX: The appendix is mildly dilated measuring 7 mm in diameter and is fluid-filled. No periappendiceal inflammatory changes are seen to suggest acute appendicitis. However, a mucocele is not excluded. URINARY BLADDER/PELVIC ORGANS: The urinary bladder is unremarkable. The prostate is normal in size. BONES / SOFT TISSUES: There is degenerative disc disease of the spine. CT/CT abdomen pelvis wo IV con IMPRESSION: 1. Large amount of stool in the ascending and transverse colon and a very large amount of stool in the rectosigmoid colon. 2. Dilated, fluid-filled appendix without surrounding inflammatory changes to suggest acute appendicitis. However, a mucocele is not excluded. Colonoscopy is recommended if this has not recently been performed. Electronically signed by: Lamont Amaya MD 06/20/2024 11:12 AM EST RP Procedure(s): XR chest 1V Accession Number(s): [id number] cc: Alexandrea Wilson; Amanda Cain MD~ EXAMINATION: XR CHEST CLINICAL INFORMATION: vomiting r/o aspiration COMPARISON: November 04, 2016 TECHNIQUE: Frontal view of the chest was obtained. FINDINGS: No consolidation, pleural effusion or pneumothorax. Cardiomediastinal silhouette size is normal. Calcified plaque thoracic aorta. Mild multilevel thoracic stenosis. Elevated left shoulder with respect to the opposite side. Right scapula overlaps the periphery of the right hemithorax. Osteopenia versus osteoporosis. XR/XR chest 1V IMPRESSION: No acute airspace disease. Electronically signed by: Leeroy Peterson MD 06/20/2024 09:21 AM EST RP Independent Historian Clinical information obtained from an independent historian. History obtained from or confirmed by: EMS and Other (son) External Record Review External record reviewed: Inpatient record, Office record, Outpatient record, Prior outpatient labs, Prior outpatient radiology, Primary care record and Outside ED record Critical Care Time Critical Care Time Critical Care Time: No Discharge Plan Discharge Clinical Impression: Constipation Patient Disposition: Home, Self-Care Instructions: Constipation (ED), High Fiber Diet (ED) Additional Instructions: You were evaluated in the ED today for nausea, vomiting, loose stool, and abdominal pain. Your blood work is reassuring. Your urine is not infected. You tested negative for covid, flu, and rsv. The CT scan of your abdomen noted a large amount of stool in your colon. We attempted to disimpact you today. You also received an enema to help pass the stool and had a large bowel movement afterwards. Take the prescribed laxative (miralax) as directed. make sure you are staying hydrated. Please follow up with your GI specialist. I have sent zofran, an anti-nausea medication, to your pharmacy. Follow up with your doctor in 2 weeks. Return with new or worsening symptoms. In the case of an emergency call 911. Prescriptions: New polyethylene glycol 3350 [Miralax] 17 gram/dose powder 17 g PO DAILY PRN (Reason: constipation) Qty: 238 0RF ondansetron 4 mg tablet,disintegrating 4 mg PO DAILY PRN (Reason: nausea and vomiting) 5 Days Qty: 10 0RF No Action doxycycline monohydrate 100 mg capsule 100 mg PO BID 10 Days Qty: 20 0RF Referrals: [facility] [Provider Group] Amanda Cain MD [Primary Care Provider] - Print Language: Maltese
[2024-06-20 08:41] VITALS: BP 123/74; BP 166/84; PULSE 90; PULSE 93; RESP 18; TEMP 36.3; O2SAT 98; O2SAT 99; BMI 2643.4
--- NOTE | 2024-06-20 08:59 | ECG_ITS ---
Test Reason : admission Blood Pressure : */* mmHG Vent. Rate : 83 BPM Atrial Rate : 83 BPM P-R Int : 212 ms QRS Dur : 70 ms QT Int : 378 ms P-R-T Axes : 58 -3 72 degrees QTcB Int : 444 ms Sinus rhythm with 1st degree A-V block with Premature atrial complexes Possible Anterior infarct , age undetermined Abnormal ECG When compared with ECG of 02-Nov-2016 02:46, Previous ECG has undetermined rhythm, needs review Borderline criteria for Anterior infarct are now Present Referred By: Alexandrea Wilson Electronically Signed By: PARKER CORRAL MD
[2024-06-20 09:26] LABS: Basophils Absolute Auto 0.1 X10*3/uL (0.0-0.2); Basophils Percent Auto 0.9 % (0-2); Eosinophils Absolute Auto 0.4 X10*3/uL (0.0-0.4); Eosinophils Percent Auto 3.7 % (0-4); Hematocrit 39.4 % (42.0-52.0); Hemoglobin 13.2 g/dl (14.0-18.0); Imm Gran Abs Auto 0.03 X10*3/uL (0.00-0.03); Imm Gran Pct Auto 0.3 % (0.0-0.4); Lymphocytes Absolute Auto 1.6 X10*3/uL (1.2-4.9); Lymphocytes Percent Auto 14.9 % (20-40); MANUAL DIFF FLAG NO; Mean Corpuscular HGB Conc 33.5 g/dl (31.0-36.0); Mean Corpuscular Hemoglobin 32.3 pg (27.0-33.0); Mean Corpuscular Volume 96.3 fL (80.0-98.0); Mean Platelet Volume 9.7 fL (9.4-12.4); Monocytes Absolute Auto 0.6 X10*3/uL (0.1-1.2); Monocytes Percent Auto 5.8 % (2-11); Neutrophils Absolute Auto 7.8 x10*3/uL (2.0-8.3); Neutrophils Percent Auto 74.4 % (45-73); Platelet Count 258 X10*3/uL (160-400); Red Blood Count 4.09 X10*6/uL (4.60-5.80); Red Cell Distribution Width 13.8 % (11.0-16.0); White Blood Count 10.4 X10*3/uL (4.8-10.8)
--- OUTSIDE RECORDS SUMMARY | 2024-06-20 09:34 | XMS_ITS | Patient Health Record ---
Author Organization [facility] Address [address] [place] [address] Care Team Providers Care Computer Network Support Specialist Name Role Phone Cecilia Corcoran Primary Care Provid er Unavailable Lamont Rangel Unavailable [phone] NICOLE, BRENT Unavailable Unavailable REASON FOR REFERRAL No Information MEDICATIONS Medication SIG (Take, Route, Frequency, Duration) Notes Start Date End Date Status Advair Diskus 250-50 MCG/DOSE 1 puff Inhalation Twice a day Active Atorvastatin Calcium 20 MG 1 tablet Oral ly Once a day Active Cholestyramine 4 GM/DOSE Use anywhere fr om 1/4 scoop to 1 scoop Orally QD or BID for diarrhea for 90 days 04/26/2020 Active Diphenoxylate-Atropine 2.5-0.025 MG TAKE 1 OR 2 TABLETS BY MOUTH EVERY MORNING ON A REGULAR BASIS, THEN USE EVERY 6 HOURS NEEDED FOR DIARRHEA. (VIAL) ^VIAL for 13 12/05/2022 Active Spirometer Active Cholestyramine 4 GM 1 packet mixed with water or non-carbonated drink Orally Twice a day for 30 day(s) Not-Taking Cholestyramine Light 4 GM 1/4 to 1 scoop Orally QD or BID for diarrhea for 90 days 05/02/2020 Active Cetirizine HCl 10 MG 1 tablet Orally Onc e a day Active glipiZIDE 5 MG 1 tablet Orally Once a day Active Warfarin Sodium 5 MG 1 tablet Orally Onc e a day Active Enalapril Maleate 2.5 MG 1 tablet Orally Once a day Active IMMUNIZATIONS Vaccine Route Administration Date Status Comme nts Influenza Unknown 09/23/2018 Refused SOCIAL HISTORY Tobacco Use: Social History Observation Description Date Details (start date - stop date) Never Smoker NA - NA Sex Assigned At : Social History Observation Description Sex Assigned At Unknown Tobacco Use/Smoking Question Answer Notes Patient is a nonsmoker Alcohol Screen Question Answer Notes Did you have a drink containing alcohol in the p ast year? No Points 0 Interpretation Negative PROBLEMS Problem Type ICD Code Onset Dates Problem Status W/U Status Risk SNOMED Code Notes Problem Diarrhea (R19.7) Active confirmed Diarr hea (64930831) Problem Diarrhea, unspecified type (R19.7) Active confirmed [id number] PLAN OF TREATMENT Pending Test Test Name Order Date CRP 03/24/2022 CBC w DIFF 03/24/2022 SED RATE (ESR) 03/24/2022 CLOSTRIDIUM DIFF TOXIN A&B (C DIFF) 12/20 STOOL WBC 03/24/2022 STOOL WBC 01/14/2018 C DIFFICILE RFLX PCR 03/24/2022 CALPROTECTIN, STOOL 03/24/2022 GI PANEL 03/24/2022 Insurance Providers Payer Name Payer Address Payer Phone Subscriber Number Group Number Insured Name Patient Relationship to Insured Coverage Start Date Coverage End Date [facility] [address] [place] [address] [id number] KAREN HUGHES Self - patient is the insured [id number] [address] [place] [address] [id number] KAREN HUGHES Self - patient is the insured MEDICAL (GENERAL) HISTORY Medical History History ICD Code NIDDM Hypertension Asthma Pulmonary embolism COPD Denies [place] Stroke 2012--left-sided weakness---menta lly [place] Surgical History Surgery Date(Month/Year) percutaneous cholecystostomy tube in 2016 for acalculous cholecystitis-sees Dr. Cooper and is scheduled for an ultrasound of the gallbladder in January 2018 hand surgery
--- OUTSIDE RECORDS SUMMARY | 2024-06-20 09:34 | XMS_ITS | Clinical Summary ---
Author Organization [facility] [address] [facility] Address [address] [place] [phone] Phone Care Team Providers Care Painter Spray Name Role Phone Amanda Cain MD Primary Care Provider [phone] Allergies No known active allergies Medications omeprazole (PriLOSEC) [address] capsule Take 1 capsule (20 mg total) by mouth 1 (one) time each day before breakfast. 30 capsule 03/25/20 24 Active FreeStyle Lancets 28 gauge lancets 02/16/20 24 Active fluticasone propionate (FLONASE) 50 mcg/actuation nasal spray Administer 2 sprays into each nostril 2 (two) times a day. 02/16/20 24 Active fluticasone-sa lmeterol (ADVAIR DISKUS) 250-50 mcg/dose diskus inhaler Inhale 1 puff by mouth 2 (two) times a day. 02/16/20 24 Active blood sugar diagnostic (FreeStyle Lite Strips) test strip 02/16/20 24 Active atorvastatin (LIPITOR) 40 mg tablet Take by mouth at bedtime. 04/21/19 24 Active mometasone (ELOCON) 0.1 % cream Apply thin layer to shins nightly PRN 15 g 03/22/20 24 Active glipiZIDE (GLUCOTROL XL) 5 mg 24 hr tablet Take 1 tablet (5 mg total) by mouth 1 (one) time each day. 90 tablet 04/14/20 24 Active Eliquis 5 mg tablet TAKE ONE TABLET BY MOUTH EVERY 12 HOURS ^1R1,1R4 60 tablet 5 04/06/20 24 Active glipiZIDE (Glucotrol XL) 5 mg 24 hr tablet Take 1 tablet (5 mg total) by mouth 1 (one) time each day. Do not crush, chew, or split. 14 each 04/14/20 24 Active enalapril (VASOTEC) 2.5 mg tablet TAKE ONE TABLET BY MOUTH EVERY EVENING AT BEDTIME ^1R4 30 tablet 05/24/19 25 Active cetirizine (ZyrTEC) 10 mg tablet TAKE ONE TABLET BY MOUTH EVERY DAY ^1R4 30 tablet 05/24/19 25 Active enalapril (VASOTEC) 2.5 mg tablet Take 1 tablet (2.5 mg total) by mouth at bedtime. 30 tablet 04/25/19 25 025 Discontinued cetirizine (ZyrTEC) 10 mg tablet Take 1 tablet (10 mg total) by mouth 1 (one) time each day. 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 Merida Urinary incontinence 03/14/2014 Atrial fibrillation 12/08/2013 Overview (03/16/2024): Diagnosed 10/31 during hospitalisation. Echo showed impaired diastolic relaxation with normal LV function. HTN (hypertension) 11/02/2013 Hemiparesis affecting left s cedric as late effect of cerebrovascular accident 11/02/2013 Encounters Date Type Department Care Team Description 04/11/2024 Telephone Adult Medicine [address] [phone] Amanda Cain MD 03/31/2024 Telephone Adult Medicine [address] [phone] Soniya Stout LPN Fitting for DME (Faxed form from [facility]) from Last 3 Months Immunizations Name Administration Dates Next Due Pneumococcal conjugate 13 va lent (Prevnar 13, PCV13) 2mo and older 09/04/2016 Pneumococcal polysaccharide 23 valent (Pneumovax 23) 2yo and older 06/27/2015 Surgical History Surgery Date Site/Laterality Comments HAND SURGERY right arm CHOLECYSTECTOMY 11/2016 ESOPHAGOGASTRODUODENOSCOPY 03/07/2021 : Duodenal erosions without bleeding, no abnormal pathology per biopsy Dr. De Leon COLONOSCOPY 03/07/2021 Indication iron deficiency anemia, few diverticula found otherwise within normal limits Medical History Medical History Date Comments COPD (chronic obstructive pu lmonary disease) ([facility]) 02/28/2014 Type II diabetes mellitus wi th neurological manifestations ([facility]) 02/27/2015 Pulmonary embolism ([facility]) 11/02/2013 Brisa gnosed here [place] , on Coumadin HTN (hypertension) 11/02/2013 Hemiparesis affecting left s cedric as late effect of cerebrovascular accident ([facility]) 11/02/2013 Atrial fibrillation ([facility]) 12/08/2013 Di agnosed 10/31 during hospitalisation. Echo showed impaired diastolic relaxation with normal LV function. Asthma 11/02/2013 Diabetic neuropathy ([facility]) Onychomycosis 04/07/2015 Diverticulosis, sigmoid 03/12/2021 CN 03/07 Hammer toes of both feet 01/01/2021 Bilateral carotid artery stenosis 01/27/2023 Social History Tobacco Use Types Packs/Day Years Used Date Smoking Tobacco: Never Smokeless Tobacco: Never Alcohol Use Standard Drinks/Week Comments No 0 (1 standard drink = 0.6 oz pur e alcohol) Sex and Gender Information Value Date Recorded Sex Assigned at Not on file Legal Sex Male 6:14 PM EST Gender Identity Not on file Sexual Orientation Not on file Obstetrics History Last Filed Vital Signs Vital Sign Reading Time Taken Comments Blood Pressure 111/68 01/04/2024 10:20 AM EDT Si tting R Arm Pulse 93 01/04/2024 10:20 AM EDT Temperature - - Respiratory Rate - - Oxygen Saturation - - Inhaled Oxygen Concentration - - Weight 77.1 kg (170 lb) 01/12/2024 10:04 AM EDT Height 177.8 cm (5' 10 ) 01/12/2024 10:04 AM EDT Body Mass Index 24.39 01/12/2024 10:04 AM EDT Plan of Treatment Upcoming Encounters Date Type Department Care Team (Late st Contact Info) Description 06/20/2024 11:15 AM EST Office Visit Adult Medicine [facility] [address] [place] [phone] Amanda Cain MD [address] [place] [address] 07/11/2024 10:15 AM EDT Office Visit Orthopedic Surgery [facility] [address] [phone] Tommie Arzola, DPM [address] [id number] Health Maintenance Due Date Last Done Comments DTaP,Tdap,and Td Vaccines (1 - Tdap) 01/16/1964 Zoster Vaccines (1 of 2) 1995 Diabetes: Annual Retina Eye Exam 09/18/2017 09/18/2016, 10/09/2015 RSV Immunization Patients 60 + Years Old (1 - 1-dose 75+ series) 01/16/2020 Colorectal Cancer Screening: Colonoscopy 03/29/2022 Medicare Annual Wellness Visit 03/29/2022 Social Influencers of Health Screening 03/29/2022 Falls Risk Assessment 02/20/2023 02/20/2022 Diabetes: Annual Urine Albumin-Creatinine Ratio (uACR) 08/15/2023 08/14/2022, 08/14/2022, 05/28/2021 COVID-19 Vaccine ( - 2023-2 5 season) 2023 Influenza Vaccine (#1) 2023 Diabetes: Blood Sugar Contro l Test (HGBA1C) 06/08/2024 12/07/2023, 12/07/2023, 04/29/2023 Depression Screening 12/06/2024 12/07/2023, 12/07/2023 Diabetes: Annual GFR (Glomerular Filtration Rate) 12/06/2024 12/07/2023, 12/07/2023 Hypertension/CHF/CAD Annual BMP Blood Test 12/06/2024 12/07/2023, 12/07/2023 Diabetes: Annual Foot Exam 01/11/202501/11, 01/12/2024, 01/12/2023 Cholesterol Screening (Lipid Panel) 04/29/2028 04/29/2023, 04/29/2023, 07/03/2022 Hepatitis C Screening Completed 12/02/2013 , 12/02/2013 Pneumococcal Vaccine: 50+ Years Completed 09/04/2016, 06/27/2015 HIB Vaccines Aged Out No longer eligi ble based on patient's age to complete this topic HPV Vaccines Aged Out No longer eligi ble based on patient's age to complete this topic Hepatitis A Vaccines Aged Out No long er eligible based on patient's age to complete this topic Hepatitis B Vaccines Aged Out No long er eligible based on patient's age to complete this topic IPV Vaccines Aged Out No longer eligi ble based on patient's age to complete this topic MMR Vaccines Aged Out No longer eligi ble based on patient's age to complete this topic Meningococcal ACWY Vaccine Aged Out N o longer eligible based on patient's age to complete this topic Meningococcal B Vacine Aged Out No lo nger eligible based on patient's age to complete this topic RSV Immunization Patients Under 20 months Aged Out No longer eligible b ased on patient's age to complete this topic Varicella Vaccines Aged Out No longer eligible based on patient's age to complete this topic Procedures Procedure Name Priority Date/Time Associated Diagnosis Comments DIABETES FOOT EXAM Routine 01/12/2024 DEPRESSION SCREENING Routine 12/07/2023 ANNUAL BMP BLOOD TEST Routine 12/07/2023 HEMOGLOBIN A1C Routine 12/07/2023 LIPID PANEL Routine 04/29/2023 URINE ALBUMIN CREATININE RATIO Routine 08/14/2022 HEPATITIS C SCREENING Routine 12/02/2013 from Last 3 Months or Most Recently Relevant to Health Maintenance Results * Diabetes Foot Exam (01/12/2024) [facility] Diabetes: Annual Foot Exam abstracted Result [facility] Provider HEALTH MAINTENANCE Final Result * Annual BMP Blood Test (12/07/2023) [facility] Annual BMP Blood Test abstracted Result [facility] HEALTH MAINTENANCE Final Result * Depression Screening (12/07/2023) [facility] Depression Screening abstracted Result [facility] HEALTH MAINTENANCE Final Result * Hemoglobin A1c (12/07/2023) [facility] Hemoglobin A1C 6.2 <=6.5 % Blood Venous blood specimen / Unknown Result [facility] Provider LAB BLOOD ORDERABLES Argelia l Result * (ABNORMAL) Lipid panel (04/29/2023) [facility] LDL/HDL Ratio 3 0 - 4 Triglycerides 116 0 - 150 mg/dL Cholesterol 127 0 - 200 mg/dL HDL 39(A) >=40 mg/dL LDL Cholesterol 65 mg/dL Blood Venous blood specimen / Unknown Result [facility] Provider LAB BLOOD ORDERABLES Argelia l Result * Urine Albumin Creatinine Ratio (08/14/2022) [facility] Urine Albumin Creatinine Ratio abstracted Result [facility] Provider HEALTH MAINTENANCE Final Result * Hepatitis C Screening (12/02/2013) [facility] Hepatitis C Screening abstracted Result [facility] Provider HEALTH MAINTENANCE Final Result from Last 3 Months or Most Recently Relevant to Health Maintenance Insurance [facility] MEDICARE Member Subscriber Plan / Payer (Ef fective 2014-Present) Name:Frederick Jaimes Relation to Subscriber:Self Name:Gabriel Jaimesro Payer ID:[id number] Group ID:[id number] Type:Not on file Address: [place] [address] [address] [phone] Care Teams Painter Spray Relationship Specialty Start Date End Date Amanda Cain MD [address] [place] [address] PCP - General Internal Medicine 11/08/20
[2024-06-20 09:42] LABS: Alanine Aminotransferase 8 U/L (0-40); Albumin Level 3.5 g/dL (3.5-5.0); Alkaline Phosphatase 96 U/L (39-117); Anion Gap 9 (12-20); Aspartate Amino Transferase 15 U/L (5-37); Bilirubin Total 0.4 mg/dL (0.0-1.0); Blood Urea Nitrogen 11 mg/dL (9-16); Calcium 8.8 mg/dL (8.4-10.2); Carbon Dioxide 27 mmol/L (22-29); Chloride 104 mmol/L (96-108); Creatinine Clr Calc Pharmacy -28.1; Estimated Glomerular Filt Rate > 60; Glucose Random 129 mg/dL (60-115); Lipase 8 U/L (8-78); Magnesium 2.2 mg/dL (1.6-2.6); Potassium 4.2 mmol/L (3.3-5.1); Sodium 136 mmol/L (135-145); Total Protein 7.7 g/dL (6.5-8.0)
[2024-06-20 09:59] LABS: Troponin-I High Sensitivity 2.7 ng/L (<3.5-35.0)
[2024-06-20 10:06] LABS: Influenza A PCR NEGATIVE (Negative); Influenza B PCR NEGATIVE (Negative); Resp Syncy Virus RNA Qual PCR NEGATIVE (Negative); SARS COV2 PCR INHOUSE NEGATIVE (Negative)
[2024-06-20 10:15] VITALS: BP 112/69; PULSE 86; RESP 21; TEMP 36.6; O2SAT 98
[2024-06-20 10:55] LABS: Appearance Urine Clear; Color Urine Yellow; Glucose Urine UA Negative (Negative); Leukocyte Esterase Urine Negative (Negative); Nitrite Urine Negative (Negative); PH 7.5 (5.0-9.0); Urine Blood Negative (Negative); Urine Ketones Negative (Negative); Urine Protein Negative (Neg-Trace)
[2024-06-20] MEDS: Acetaminophen 325 MG TABLET 650 MG PO (11:46)
[2024-06-20] MEDS: Ondansetron ODT 4 MG TAB.RAPDIS TRANSLINGU (11:46)
[2024-06-20 13:33] LABS: CDiff Gene PCR NEGATIVE (Negative)
[2024-06-20 14:47] LABS: Adenovirus F 40/41 Not Detected (Not Detect.); Astrovirus Not Detected (Not Detect.); Campylobacter Not Detected (Not Detect.); Cryptosporidium Not Detected (Not Detect.); Cyclospora cayetanensis Not Detected (Not Detect.); E. coli EAEC Not Detected (Not Detect.); E. coli EPEC Not Detected (Not Detect.); E. coli ETEC Not Detected (Not Detect.); E. coli STEC Not Detected (Not Detect.); Entamoeba histolytica Not Detected (Not Detect.); Giardia lamblia Not Detected (Not Detect.); Plesiomonas shigelloides Not Detected (Not Detect.); Rotavirus A Not Detected (Not Detect.); Salmonella Not Detected (Not Detect.); Sapovirus Not Detected (Not Detect.); Shigella sp./EIEC Not Detected (Not Detect.); Vibrio Not Detected (Not Detect.); Vibrio Cholerae Not Detected (Not Detect.); Yersinia enterocolitica Not Detected (Not Detect.)
[2024-06-20 15:04] LABS: Norovirus GI/GII Detected (Not Detect.)
[2024-06-20 18:11] VITALS: BP 112/69; PULSE 86; RESP 21; TEMP 36.6; O2SAT 98
== END 2024-06-20 18:12 | disposition home or self-care (01) ==
PROVIDERS: Physician Assistant Medical; Emergency Provider Emergency Medicine; PCP Internal Medicine
DX: K59.00 Constipation, unspecified (principal); E11.9 Type 2 diabetes mellitus without complications; I48.91 Unspecified atrial fibrillation; I69.954 Hemiplegia and hemiparesis following unspecified cerebrovascular disease affecting left non-dominant side; Z86.711 Personal history of pulmonary embolism; Z79.01 Long term (current) use of anticoagulants; Z03.818 Encounter for observation for suspected exposure to other biological agents ruled out
CPT/HCPCS: 0241U; 36415; 71045; 74176; 80053; 81003; 83690; 83735; 84484; 85025; 87493; 87507; 93005; 99284; 99285

== ENCOUNTER → 2024-06-20 08:59 | Outpatient (BNV) | payer OTHER, SELFPAY | PROVIDERS: Emergency Provider Emergency Medicine; PCP Internal Medicine; Visit Provider Radiology Diagnostic Radiology | DX: R11.2 Nausea with vomiting, unspecified (principal); R10.32 Left lower quadrant pain | CPT/HCPCS: 71045; 74176 ==

== ENCOUNTER → 2024-06-20 08:59 | Outpatient (BNV) | payer OTHER, SELFPAY | PROVIDERS: Emergency Provider Emergency Medicine; PCP Internal Medicine; Visit Provider Internal Medicine Cardiovascular Disease | DX: I44.0 Atrioventricular block, first degree (principal); I49.1 Atrial premature depolarization | CPT/HCPCS: 93010 ==

== ENCOUNTER 2024-06-24 08:46 | Inpatient (IN) | payer OTHER, SELFPAY ==
[2024-06-24] VITALS (14 sets, daily range): BP systolic 79–138; BP diastolic 46–80; PULSE 86–121; RESP 15–22; TEMP 35.6–37.4; O2SAT 97–100; BMI 18.9; BMI 21.8
--- NOTE | ~2024-06-24 | XR_ITS ---
CLINICAL HISTORY: shortness of breath 1 view chest x-ray. Comparison: CR/SD/SR - XR CHEST 1V - 06/20/24 09:08 EST Findings: The lungs appear clear. There is no consolidation, effusion, or pneumothorax. Cardiomediastinal silhouette is within normal limits. IMPRESSION: No acute cardiopulmonary abnormality. This document has been electronically signed by: Neto Corrales MD on 06/24/2024 21:00:52
--- NOTE | ~2024-06-24 | CT_ITS ---
EXAMINATION: CT ABDOMEN PELVIS WITH IV CONTRAST HISTORY: abd distention, vomiting COMPARISON: Comparison is made with the prior examination dated 06/20/2024. TECHNIQUE: CT scan of the abdomen and pelvis was performed following administration of 85 mL Omnipaque 350 using standard departmental protocol. Coronal and sagittal reformatted images were generated and reviewed. Oral contrast material was not administered at the request of the referring physician. This CT exam was performed with one or more of the following dose reduction techniques: automated exposure control, adjustment of the mA and/or kV according to patient size, use of iterative reconstruction technique. DLP: 728 mGy-cm FINDINGS: LOWER CHEST: The visualized lung bases are clear. There is no pleural effusion. CARDIOVASCULATURE: The heart is normal in size. There is no pericardial effusion. LIVER: The liver is normal in size and contour. No liver mass is identified. The hepatic and portal veins are patent. GALLBLADDER / BILE DUCTS: The gallbladder is unremarkable. There is no intra or extrahepatic biliary ductal dilatation. SPLEEN: The spleen is normal in size. No focal splenic lesion is identified. PANCREAS: The pancreas is unremarkable in appearance. ADRENAL GLANDS: Within normal limits. KIDNEYS/RETROPERITONEUM: No renal calculi are identified. There is no hydronephrosis. No renal masses are identified. LYMPH NODES: No abdominal or pelvic lymphadenopathy. VASCULATURE: The abdominal aorta demonstrates atherosclerotic calcification, but is normal in caliber. MESENTERY/PERITONEUM: No free fluid. No masses. There is no free intraperitoneal gas. STOMACH: The stomach is collapsed, limiting evaluation. SMALL BOWEL: The small bowel is normal in caliber. COLON: There is a large amount of stool in the descending and sigmoid colon and a very large amount of stool in the rectum. APPENDIX: The appendix remains dilated and fluid-filled without surrounding inflammatory change. URINARY BLADDER/PELVIC ORGANS: The urinary bladder is unremarkable. The prostate is normal in size. BONES / SOFT TISSUES: There is degenerative disc disease of the spine. CT/CT abdomen pelvis w IV con IMPRESSION: 1. Large amount of stool in the descending and sigmoid colon and a very large amount of stool in the rectum. 2. Dilated, fluid-filled appendix without inflammatory change. A mucocele is not excluded and colonoscopy is recommended. Electronically signed by: Lamont Amaya MD 06/24/2024 10:25 AM [facility]
--- NOTE | 2024-06-24 08:51 | ED.GENADULT ---
HPI - General Adult General Chief complaint: GI Bleed Stated complaint: lethargy, weakness, hypotension, afib Time Seen by Provider: 06/24/24 08:51 Source: patient, EMS and solo musician (all interactions with this patient were facilitated with an [facility] [place] aboriginal ceremonial celebrant) Mode of arrival: EMS Limitations: language barrier (all interactions with this patient were facilitated with an [facility] [place] aboriginal ceremonial celebrant) and physical limitation (patient is mildly confused) History of Present Illness ED Provider: Nelly Shah PA-C HPI narrative: Patient is a 79 year old assigned male at with a history of CVA with left sided hemiparesis, DM, HLD, and atrial fibrillation on Eliquis, presenting to the emergency department today with nausea, vomiting, diarrhea, and lethargy. Patient states that he has felt weak and nauseous over the last day and has been having bouts of vomiting and diarrhea. Patient denies any dizziness, lightheadedness, abdominal pain, fever, chills, blurry vision, double vision, loss of vision, chest pain, difficulty breathing, shortness of breath, back pain, night sweats, pain with urination, increased urinary frequency, increased urinary urgency, syncope or a near syncopal episode, recent trauma or falls, bowel incontinence, bladder incontinence, or any other complaints at this time. Patient is alert and oriented to person and place however, seems mildly confused. I spoke to the patient's over the phone who stated that the patient is at baseline mildly confused and the vomiting / weakness is new. Patient's states that the patient was seen here on 06/20 for constipation. Patient's states that the patient is a full code, is to have any blood transfusions necessary, and is to have any emergent / immediate intervention indicated. She states that she does not have transportation and does not know when she will make it to the hospital. I explained to her that the patient is ill and she should get here as soon as possible. Associated symptoms: nausea/vomiting and weakness Related Data Home Medications ?Medication ?Instructions ?Recorded ?Confirmed apixaban 5 mg tablet (Eliquis) 5 mg PO BID 06/24/24 06/24/24 cetirizine 10 mg tablet 10 mg PO DAILY 06/24/24 06/24/24 enalapril maleate 2.5 mg tablet 2.5 mg PO DAILY 06/24/24 06/24/24 glipizide 5 mg tablet, extended 5 mg PO DAILY 06/24/24 06/24/24 release 24 hr Allergies Allergy/AdvReac Type Severity Reaction Status Date / Time No Known Allergies Allergy Verified 06/24/24 09:11 [No Known Allergies*] Review of Systems Constitutional: Constitutional: Reports no additional constitutional complaints, Denies chills, Denies fever(s), Denies night sweats and Reports weakness Eyes: Eyes: Reports no additional eye complaints, Denies blurry vision, Denies change in vision, Denies diplopia, Denies eye discharge, Denies loss of vision and Denies eye pain ENT: Denies dizziness Cardiovascular: Cardiovascular: Reports no additional cardiovascular complaints, Denies chest pain, Denies lightheadedness, Denies Loss of Consciousness and Denies dyspnea Respiratory: Respiratory: Reports no additional respiratory complaints and Denies dyspnea Gastrointestinal: Gastrointestinal: Reports no additional gastrointestinal complaints, Denies abdominal pain, Reports change in bowel habits, Reports change in stool character, Reports coffee ground emesis, Reports nausea and Reports vomiting Genitourinary: Genitourinary: Reports no additional male genitourinary complaints, Denies hematuria, Denies oliguria, Denies difficulty urinating, Denies dysuria, Denies urinary frequency, Denies urinary hesitancy, Denies urinary incontinence and Denies urinary urgency Musculoskeletal: Musculoskeletal: Reports no additional musculoskeletal complaints, Denies numbness and Denies tingling Neurologic: Reports confusion, Denies dizziness, Denies loss of vision, Denies numbness, Denies tingling and Reports weakness Psychiatric: Psychiatric: Reports no additional psychiatric complaints and Reports confusion Endocrine: Endocrine: Reports no additional endocrine complaints Hematologic/Lymphatic: Hematologic/Lymphatic: Reports no additional hematologic/lymphatic complaints Allergic/Immunologic: Allergic/Immunologic: Reports no additional allergic/immunologic complaints PMFSH Past Medical History Attestation statement: The following information was validated with the patient. (all information validated with the patient's spouse) Source: old records reviewed, obtained from family (patient's spouse provided additional history and confirmed the history provided by the patient.) and nursing notes reviewed Medical History CVA (cerebral vascular accident) Hyperlipidemia Diabetes Social History Social History Alcohol intake: never Smoked in Last 30 Days: No Advance Directives: No Advance Directives Information Provided: Yes Do you have a plan to hurt others: No Plan Physical Exam ED Vital Signs: Vital Signs - 24 hr 06/24/24 09:09 06/24/24 09:50 06/24/24 10:07 Temperature 98.0 F 96.1 F L 97.3 F Pulse Rate 121 H 106 H 96 Respiratory Rate 20 16 19 Blood Pressure 79/55 L 112/61 124/76 Pulse Oximetry 100 Oxygen Delivery Method Nasal Cannula Oxygen Flow Rate 06/24/24 10:18 06/24/24 10:58 06/24/24 11:33 Temperature 96.3 F L 97.3 F 98.9 F Pulse Rate 104 H 100 101 H Respiratory Rate 22 H 15 19 Blood Pressure 126/80 104/59 L 106/56 L Pulse Oximetry 98 100 Oxygen Delivery Method Nasal Cannula Nasal Cannula Oxygen Flow Rate 2 2 BMI result Body Mass Index 18.9 Const General: confusion, ill appearing acutely and lethargic Nutritional Appearance: cachectic Orientation/consciousness: confusion and lethargic Limitations: language barrier (all interactions with this patient were facilitated with an [facility] [place] Luxembourger) HENMT Head: Yes normal to inspection and Yes atraumatic Ears: hearing grossly normal bilaterally and external ears normal General nose exam: Normal external nose present, no nasal discharge noted and no epistaxis Face and sinus: Yes normal facial exam, No abrasion and No laceration Mouth: Normal oral and palatal mucosa present, no drooling and no muffled voice Eyes General: appearance normal, both eyes and all related structures Periorbital: periorbital findings normal Eyelids: Yes eyelids normal Conjunctivae: conjunctivae normal Pupils: Equal, round and reactive pupils present EOM: EOMs intact bilaterally Neck Neck: Yes normal visual inspection, Yes full ROM and Yes no lymphadenopathy Chest Chest palpation & inspection: normal inspection of the chest Resp Effort & Inspection: normal respiratory effort and able to speak in complete sentences GI Other: Palpation (GI): Soft to palpation, not firm, nontender, no guarding and not rigid Skin General skin exam: pallor Neuro General: confusion Cranial nerves: Yes Equal, round and reactive pupils present Cognition (Neuro): normal cognition Extrem General: Yes normal to inspection, Yes full ROM and Yes capillary refill normal Psych Appearance: grossly normal Mental Status: mental status grossly normal Affect: normal affect Attitude: cooperative Thought process: Normal thought process present Thought content: Normal thought content present Insight: Good insight present (Psych) Medications Administered Generic Name Dose Route Start Last Admin Trade Name Freq PRN Reason Stop Dose Admin Pantoprazole Sodium 80 mg/ 100 mls @ 10 mls/hr 06/24/24 11:00 06/24/24 11:20 Sodium Chloride IV 8 mg/hr .Q10H MICKEY 10 mls/hr Administration 8 MG/HR Lactated Ringer's 1,000 mls @ 80 mls/hr 06/24/24 15:15 06/24/24 15:16 Lr IVCONT 80 mls/hr .[id number] MICKEY Administration Discontinued Medications Generic Name Dose Route Start Last Admin Trade Name Freq PRN Reason Stop Dose Admin Piperacillin Sod/Tazobactam 50 mls @ 100 mls/hr 06/24/24 09:53 06/24/24 11:58 Sod 3.375 gm/ Sodium Chloride IV 06/24/24 10:22 Infused ONCE ONE Infusion Prothrombin Complex Concent ( 80 mls @ 480 mls/hr 06/24/24 09:53 06/24/24 10:33 Human) 2,000 unit/ IV IV 06/24/24 10:02 Infused Miscellaneous Supplies .Q10M ONE Infusion Phytonadione 5 mg/ Sodium 50.5 mls @ 50.5 mls/hr 06/24/24 09:53 06/24/24 11:19 Chloride IV 06/24/24 10:52 Infused ONCE ONE Infusion Calcium Gluconate 1 gm in 50 mls @ 50 mls/hr 06/24/24 10:06 06/24/24 11:26 Calcium Gluconate IV 06/24/24 11:05 Infused ONCE ONE Infusion Iohexol 100 ml 06/24/24 10:02 06/24/24 10:02 Iohexol 350 Mg/Ml 100 Ml Infus..Btl IV 06/24/24 10:03 85 ml ONCE ONE Administration Medical Decision Making Medical Decision Making [facility] Narrative: Patient is a 79 year old assigned male at with a history of CVA with left sided hemiparesis, DM, HLD, and atrial fibrillation on Eliquis, presenting to the emergency department today with nausea, vomiting, diarrhea, and lethargy. Patient's physical exam was as noted in the physical exam portion of this note. Patient's blood work showed WBC 12.9, hgb 9.9 (was 13.2), hct 29.7 (was 39.4), K+ 5.5, BUN 41, lactic acid 4.8, calcium 7.9, and albumin 2.8. Patient's stool culture from his previous visit showed Norovirus. Patient's urine showed no acute process. Patient's EKG showed sinus tachycardia. Patient's CT abdomen pelvis showed large amount of stool in the descending and sigmoid colon and a very large amount of stool in the rectum and dilated fluid-filled appendix without inflammatory changes as previously seen - mucocele is not excluded and colonoscopy was recommended by the radiologist. Patient was hypotensive and tachycardic upon arrival. Patient had dried dark tinged vomitus around his mouth and very dark blood mixed with stool per rectum. Patient was given 1L of NS by EMS and I immediately ordered 1 unit of unmatched pRBCs as well as a protonix drip. Patient's blood pressure improved. I consulted with my attending physician, Dr. Alamo, who recommended giving Kcentra and Vitamin K as well as Calcium Gluconate and holding further fluids at this time given the patient's improved blood pressure. Patient's clinical presentation is most consistent with an acute GI bleed and not sepsis (@1100). I spoke to the GI team who recommended medical admission. I spoke to the hospitalist team who agreed to admission. I explained my physical exam findings as well as all test results to the patient and the patient's . I answered all questions asked by the patient and the patient's . Patient and the patient's verbalized agreement and understanding with this treatment plan and admission. Differential Diagnosis Differential Diagnoses: The differential diagnosis associated with the presentation includes GI bleed Colitis Hypotension Admission/Observation Consideration of admission/observation: Escalation of care including admission/observation considered Patient admitted as noted in the MDM Rationale portion of this note. Consult Healthcare Provider Management of the patient was discussed with: Hospitalist (agreed to admission as noted in the MDM Rationale portion of this note. ) and [facility] (spoke to the GI team and Dr. Alamo as noted in the MDM Rationale portion of this note.) Lab Data [facility] Lab Attestation statement: I reviewed the patient's lab results. My interpretation of these results are in the MDM Rationale portion of this note. 06/24/24 09:12 06/24/24 09:12 Labs: Lab Results 06/24/24 06/24/24 06/24/24 Range/Units 09:09 09:12 09:14 WBC 12.9 H (4.8-10.8) X10*3/uL RBC 2.96 L D (4.60-5.80) X10*6/uL Hgb 9.9 L D (14.0-18.0) g/dl Hct 29.7 L D (42.0-52.0) % MCV 100.3 H (80.0-98.0) fL MCH 33.4 H (27.0-33.0) pg MCHC 33.3 (31.0-36.0) g/dl RDW 14.6 (11.0-16.0) % Plt Count 272 (160-400) X10*3/uL MPV 10.0 (9.4-12.4) fL Immature Gran % (Auto) 0.4 (0.0-0.4) % Neut % (Auto) 66.3 (45-73) % Lymph % (Auto) 21.9 (20-40) % [place] % (Auto) 5.9 (2-11) % Eos % (Auto) 4.6 H (0-4) % Baso % (Auto) 0.9 (0-2) % Lymph # (Auto) 2.8 (1.2-4.9) X10*3/uL [place] # (Auto) 0.8 (0.1-1.2) X10*3/uL Eos # (Auto) 0.6 H (0.0-0.4) X10*3/uL Baso # (Auto) 0.1 (0.0-0.2) X10*3/uL Abs Immat Gran (auto) 0.05 H (0.00-0.03) X10*3/uL Absolute Neuts (auto) 8.6 H (2.0-8.3) x10*3/uL Absolute Nucleated RBC 0.000 (0.0-0.012) X10*3/uL Nucleated RBC % (auto) 0.0 (0.0-0.2) /100WBC PT 18.1 H (10.9-12.4) SEC INR 1.6 H (0.9-1.1) Sodium 137 (135-145) mmol/L Potassium 5.5 H D (3.3-5.1) mmol/L Chloride 110 H (96-108) mmol/L Carbon Dioxide 18 L (22-29) mmol/L Anion Gap 15 (12-20) BUN 41 H (9-16) mg/dL Creatinine 0.79 (0.5-1.4) mg/dL Estim Creat Clear Calc 64.1 Estimated GFR > 60 Random Glucose 248 H (60-115) mg/dL Lactic Acid 4.8 H* (0.5-2.0) mmol/L Lactic Acid F/U @ 2Hr (0.5-2.0) mmol/L Calcium 7.9 L D (8.4-10.2) mg/dL Magnesium 2.1 (1.6-2.6) mg/dL Total Bilirubin 0.3 (0.0-1.0) mg/dL AST 23 (5-37) U/L ALT < 6 (0-40) U/L Alkaline Phosphatase 67 (39-117) U/L Total Protein 6.0 L (6.5-8.0) g/dL Albumin 2.8 L (3.5-5.0) g/dL Urine Color Urine Appearance Urine pH (5.0-9.0) Ur Specific [place] (1.005-1.025) Urine Protein (Neg-Trace) mg/dL Urine Glucose (UA) (Negative) mg/dL Urine Ketones (Negative) mg/dL Urine Blood (Negative) Urine Nitrite (Negative) Ur Leukocyte Esterase (Negative) Stool Occult Blood POSITIVE (NEGATIVE) Influenza Type A (PCR) NEGATIVE (Negative) Influenza Type B (PCR) NEGATIVE (Negative) RSV RNA Qual (PCR) NEGATIVE (Negative) SARS-CoV-2 RNA (RT-PCR) NEGATIVE (Negative) Blood Type Antibody Screen Crossmatch 06/24/24 06/24/24 06/24/24 Range/Units 09:54 10:14 12:18 WBC (4.8-10.8) X10*3/uL RBC (4.60-5.80) X10*6/uL Hgb (14.0-18.0) g/dl Hct (42.0-52.0) % MCV (80.0-98.0) fL MCH (27.0-33.0) pg MCHC (31.0-36.0) g/dl RDW (11.0-16.0) % Plt Count (160-400) X10*3/uL MPV (9.4-12.4) fL Immature Gran % (Auto) (0.0-0.4) % Neut % (Auto) (45-73) % Lymph % (Auto) (20-40) % [place] % (Auto) (2-11) % Eos % (Auto) (0-4) % Baso % (Auto) (0-2) % Lymph # (Auto) (1.2-4.9) X10*3/uL [place] # (Auto) (0.1-1.2) X10*3/uL Eos # (Auto) (0.0-0.4) X10*3/uL Baso # (Auto) (0.0-0.2) X10*3/uL Abs Immat Gran (auto) (0.00-0.03) X10*3/uL Absolute Neuts (auto) (2.0-8.3) x10*3/uL Absolute Nucleated RBC (0.0-0.012) X10*3/uL Nucleated RBC % (auto) (0.0-0.2) /100WBC PT (10.9-12.4) SEC INR (0.9-1.1) Sodium (135-145) mmol/L Potassium (3.3-5.1) mmol/L Chloride (96-108) mmol/L Carbon Dioxide (22-29) mmol/L Anion Gap (12-20) BUN (9-16) mg/dL Creatinine (0.5-1.4) mg/dL Estim Creat Clear Calc Estimated GFR Random Glucose (60-115) mg/dL Lactic Acid (0.5-2.0) mmol/L Lactic Acid F/U @ 2Hr 1.7 (0.5-2.0) mmol/L Calcium (8.4-10.2) mg/dL Magnesium (1.6-2.6) mg/dL Total Bilirubin (0.0-1.0) mg/dL AST (5-37) U/L ALT (0-40) U/L Alkaline Phosphatase (39-117) U/L Total Protein (6.5-8.0) g/dL Albumin (3.5-5.0) g/dL Urine Color Yellow Urine Appearance Clear Urine pH 7.0 (5.0-9.0) Ur Specific [place] >= 1.030 H (1.005-1.025) Urine Protein Negative (Neg-Trace) mg/dL Urine Glucose (UA) 100 H (Negative) mg/dL Urine Ketones 15 (Negative) mg/dL Urine Blood Negative (Negative) Urine Nitrite Negative (Negative) Ur Leukocyte Esterase Negative (Negative) Stool Occult Blood (NEGATIVE) Influenza Type A (PCR) (Negative) Influenza Type B (PCR) (Negative) RSV RNA Qual (PCR) (Negative) SARS-CoV-2 RNA (RT-PCR) (Negative) Blood Type A Positive Antibody Screen NEGATIVE Crossmatch See Detail Independent Interpretation I performed an independent interpretation of an: EKG and CT Scan Interpretation: My interpretation is in agreement with the radiologist's impression of this imaging study. Report Number: [id number]: Total DLP = 728.00 mGy-cm EXAMINATION: CT ABDOMEN PELVIS WITH IV CONTRAST HISTORY: abd distention, vomiting COMPARISON: Comparison is made with the prior examination dated 06/20/2024. TECHNIQUE: CT scan of the abdomen and pelvis was performed following administration of 85 mL Omnipaque 350 using standard departmental protocol. Coronal and sagittal reformatted images were generated and reviewed. Oral contrast material was not administered at the request of the referring physician. This CT exam was performed with one or more of the following dose reduction techniques: automated exposure control, adjustment of the mA and/or kV according to patient size, use of iterative reconstruction technique. DLP: 728 mGy-cm FINDINGS: LOWER CHEST: The visualized lung bases are clear. There is no pleural effusion. CARDIOVASCULATURE: The heart is normal in size. There is no pericardial effusion. LIVER: The liver is normal in size and contour. No liver mass is identified. The hepatic and portal veins are patent. GALLBLADDER / BILE DUCTS: The gallbladder is unremarkable. There is no intra or extrahepatic biliary ductal dilatation. SPLEEN: The spleen is normal in size. No focal splenic lesion is identified. PANCREAS: The pancreas is unremarkable in appearance. ADRENAL GLANDS: Within normal limits. KIDNEYS/RETROPERITONEUM: No renal calculi are identified. There is no hydronephrosis. No renal masses are identified. LYMPH NODES: No abdominal or pelvic lymphadenopathy. VASCULATURE: The abdominal aorta demonstrates atherosclerotic calcification, but is normal in caliber. MESENTERY/PERITONEUM: No free fluid. No masses. There is no free intraperitoneal gas. STOMACH: The stomach is collapsed, limiting evaluation. SMALL BOWEL: The small bowel is normal in caliber. COLON: There is a large amount of stool in the descending and sigmoid colon and a very large amount of stool in the rectum. APPENDIX: The appendix remains dilated and fluid-filled without surrounding inflammatory change. URINARY BLADDER/PELVIC ORGANS: The urinary bladder is unremarkable. The prostate is normal in size. BONES / SOFT TISSUES: There is degenerative disc disease of the spine. CT/CT abdomen pelvis w IV con IMPRESSION: 1. Large amount of stool in the descending and sigmoid colon and a very large amount of stool in the rectum. 2. Dilated, fluid-filled appendix without inflammatory change. A mucocele is not excluded and colonoscopy is recommended. Electronically signed by: Lamont Amaya MD 06/24/2024 10:25 [place] [facility] [place] By: Lamont Amaya MD Signed By: Electronically signed by Lamont Amaya MD 06/24/24 1025 I independently interpreted this EKG and am in agreement with the below findings: Vent. Rate: 105 BPM Atrial Rate: 105 BPM P-R Int: 204 ms QRS Dur: 60 ms QT Int: 348 ms P-R-T Axes: 72 36 73 degrees QTcB Int: 459 ms Sinus tachycardia When compared with ECG of 20-Jun-2024 09:30, Premature atrial complexes are no longer Present Borderline criteria for Anterior infarct are no longer Present Referred By: Nelly Shah Electronically Signed By: TOR CORRAL MD Dictated By: Tor Corral MD Signed By: Electronically signed by Tor Corral MD 06/24/24 1415 Radiology Impression Discussion of test interpretation with radiology: I have reviewed the radiologist's reading. Independent Historian Clinical information obtained from an independent historian. History obtained from or confirmed by: Spouse (Patient's provided additional history and confirmed the history provided by the patient.) and EMS (EMS provided additional history and confirmed the history provided by the patient.) Critical Care Time Critical Care Time Critical Care Time: Yes Total Critical Care Time: 56 Attestation: I spent 56 minutes of Critical Care Time with this patient. This does not include time spent on separately reported billable procedures. Discharge Plan Discharge Clinical Impression: GI bleed, Acute blood loss anemia, Norovirus Patient Disposition: Admitted As Inpatient
--- NOTE | 2024-06-24 08:52 | ECG_ITS ---
Test Reason : weakness / lethargy Blood Pressure : */* mmHG Vent. Rate : 105 BPM Atrial Rate : 105 BPM P-R Int : 204 ms QRS Dur : 60 ms QT Int : 348 ms P-R-T Axes : 72 36 73 degrees QTcB Int : 459 ms Sinus tachycardia Otherwise normal ECG When compared with ECG of 20-Jun-2024 09:30, Premature atrial complexes are no longer Present Borderline criteria for Anterior infarct are no longer Present Referred By: Nelly Shah Electronically Signed By: PARKER CORRAL MD
--- NOTE | 2024-06-24 09:19 | PC.NURSE ---
patient presents with coffee ground emesis and diarrhea prior to arrival. patient denies any pain. upon arrival, hypotensive and tachy. 18IV from EMS in right AC, additional 18IV right wrist and 20IV left wrist. labs obtained and sent. while changing patient, bright maroon stool noted in brief. while obtaining rectal temperature, patient with loose bright maroon stool once again. normal saline infusing via pressure bag in right AC. patient moved to room 5
[2024-06-24 09:24] LABS: MANUAL DIFF FLAG NO
[2024-06-24 09:25] LABS: Basophils Absolute Auto 0.1 X10*3/uL (0.0-0.2); Basophils Percent Auto 0.9 % (0-2); Eosinophils Absolute Auto 0.6 X10*3/uL (0.0-0.4); Eosinophils Percent Auto 4.6 % (0-4); Hematocrit 29.7 % (42.0-52.0); Hemoglobin 9.9 g/dl (14.0-18.0); Imm Gran Abs Auto 0.05 X10*3/uL (0.00-0.03); Imm Gran Pct Auto 0.4 % (0.0-0.4); Lymphocytes Absolute Auto 2.8 X10*3/uL (1.2-4.9); Lymphocytes Percent Auto 21.9 % (20-40); Mean Corpuscular HGB Conc 33.3 g/dl (31.0-36.0); Mean Corpuscular Hemoglobin 33.4 pg (27.0-33.0); Mean Corpuscular Volume 100.3 fL (80.0-98.0); Monocytes Absolute Auto 0.8 X10*3/uL (0.1-1.2); Monocytes Percent Auto 5.9 % (2-11); Neutrophils Absolute Auto 8.6 x10*3/uL (2.0-8.3); Neutrophils Percent Auto 66.3 % (45-73); Platelet Count 272 X10*3/uL (160-400); Red Blood Count 2.96 X10*6/uL (4.60-5.80); Red Cell Distribution Width 14.6 % (11.0-16.0); White Blood Count 12.9 X10*3/uL (4.8-10.8)
[2024-06-24 09:34] LABS: INTERNATIONAL NORM RATIO 1.6 (0.9-1.1); Prothrombin Time 18.1 SEC (10.9-12.4)
[2024-06-24 09:54] LABS: Lactic Acid 4.8 mmol/L (0.5-2.0)
[2024-06-24 09:58] LABS: Alanine Aminotransferase < 6 U/L (0-40); Albumin Level 2.8 g/dL (3.5-5.0); Alkaline Phosphatase 67 U/L (39-117); Anion Gap 15 (12-20); Aspartate Amino Transferase 23 U/L (5-37); Bilirubin Total 0.3 mg/dL (0.0-1.0); Blood Urea Nitrogen 41 mg/dL (9-16); Calcium 7.9 mg/dL (8.4-10.2); Carbon Dioxide 18 mmol/L (22-29); Chloride 110 mmol/L (96-108); Creatinine Clr Calc Pharmacy 64.1; Estimated Glomerular Filt Rate > 60; Glucose Random 248 mg/dL (60-115); Magnesium 2.1 mg/dL (1.6-2.6); Potassium 5.5 mmol/L (3.3-5.1); Sodium 137 mmol/L (135-145)
[2024-06-24] MEDS: iohexoL 350 MG/ML 100 ML INFUS..BTL IV (10:02)
[2024-06-24 10:07] LABS: Influenza A PCR NEGATIVE (Negative); Influenza B PCR NEGATIVE (Negative); Resp Syncy Virus RNA Qual PCR NEGATIVE (Negative); SARS COV2 PCR INHOUSE NEGATIVE (Negative)
[2024-06-24] MEDS: Phytonadione (Vit K1) 5 MG in 0.9 % Sodium Chloride 50 ML 50.5 MG IV (10:21)
[2024-06-24 10:22] LABS: Appearance Urine Clear; Color Urine Yellow; Glucose Urine UA 100 mg/dL (Negative); Leukocyte Esterase Urine Negative (Negative); Nitrite Urine Negative (Negative); Specific Gravity - Urine >= 1.030 (1.005-1.025); Urine Blood Negative (Negative); Urine Ketones 15 mg/dL (Negative); Urine Protein Negative (Neg-Trace)
[2024-06-24] MEDS: Hum Prothrombin Cplx(PCC)4Fact 2,000 UNIT in Container,Empty 0 ML 480 UNIT IV (10:22)
[2024-06-24] MEDS: Calcium Gluconate/NaCl,Iso-Osm 1 GM/50 ML PLAST..BAG IV (10:37)
--- NOTE | 2024-06-24 10:44 | PC.NURSE ---
First unit RBC's infusing; vss; no s/s of adverse reaction noted at this time; family at bedside
[2024-06-24] MEDS: Piperacillin Sodium/Tazobactam 3.375 GM in 0.9 % Sodium Chloride 50 ML IV (11:19)
[2024-06-24] MEDS: Pantoprazole Sodium 80 MG in 0.9 % Sodium Chloride 80 ML 10 MG IV ×2 (11:20→22:05)
[2024-06-24 11:21] LABS: Reflex Lactate? Lactic Acid Added
--- OUTSIDE RECORDS SUMMARY | 2024-06-24 11:33 | XMS_ITS | Clinical Summary ---
Author Organization [facility] [address] [facility] Address [address] [place] [phone] Phone Care Team Providers Care Solutions Specialist Name Role Phone Amanda Cain MD Primary Care Provider [phone] Allergies No known active allergies Medications omeprazole (PriLOSEC) [address] capsule Take 1 capsule (20 mg total) by mouth 1 (one) time each day before breakfast. 30 capsule 4 Active FreeStyle Lancets 28 gauge lancets 4 Active fluticasone propionate (FLONASE) 50 mcg/actuation nasal spray Administer 2 sprays into each nostril 2 (two) times a day. 4 Active fluticasone-brayden meterol (ADVAIR DISKUS) 250-50 mcg/dose diskus inhaler Inhale 1 puff by mouth 2 (two) times a day. 4 Active blood sugar diagnostic (FreeStyle Lite Strips) test strip 4 Active atorvastatin (LIPITOR) 40 mg tablet Take by mouth at bedtime. 4 Active mometasone (ELOCON) 0.1 % cream Apply thin layer to shins nightly PRN 15 g 4 Active glipiZIDE (GLUCOTROL XL) 5 mg 24 hr tablet Take 1 tablet (5 mg total) by mouth 1 (one) time each day. 90 tablet 4 Active Eliquis 5 mg tablet TAKE ONE TABLET BY MOUTH EVERY 12 HOURS ^1R1,1R4 60 tablet 5 4 Active glipiZIDE (Glucotrol XL) 5 mg 24 hr tablet Take 1 tablet (5 mg total) by mouth 1 (one) time each day. Do not crush, chew, or split. 14 each 4 Active enalapril (VASOTEC) 2.5 mg tablet TAKE ONE TABLET BY MOUTH EVERY EVENING AT BEDTIME ^1R4 30 tablet 5 Active cetirizine (ZyrTEC) 10 mg tablet TAKE ONE TABLET BY MOUTH EVERY DAY ^1R4 30 tablet 5 Active Active Problems Problem Noted Date Diagnosed Date [...] Care Team Description 04/11/2024 Telephone Adult Medicine [address] [phone] Amanda Cain MD 03/31/2024 Telephone Adult Medicine [address] [phone] Soniya Stout LPN Fitting for DME (Faxed [...] Comments COPD (chronic obstructive pu lmonary disease) ([facility]) 02/28/2014 Type II diabetes mellitus wi th neurological manifestations ([facility]) 02/27/2015 Pulmonary embolism ([facility]) 11/02/2013 Brisa gnosed here in [place] , on Coumadin HTN (hypertension) 11/02/2013 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 Echo showed impaired diastolic relaxation with normal LV function. Asthma 11/02/2013 Diabetic neuropathy ([facility]) Onychomycosis 04/07/2015 Diverticulosis, sigmoid 03/12/2021 CN 03/07 [...] Care Team (Late st Contact Info) Description 07/11/2024 10:15 AM EDT Office Visit Orthopedic Surgery - [place] [address] [phone] Tommie Arzola, DPHuyen [address] [address] 07/19/2024 11:15 AM EDT Office Visit Adult Medicine [facility] [address] [place] [address] Amanda Cain MD [address] [place] [address] Health Maintenance Due Date Last Done Comments [...] Maintenance Results * Diabetes Foot Exam (01/12/2024) Diabetes: Annual Foot Exam abstracted Historical Provider MD HEALTH MAINTENANCE Final Result * Annual BMP Blood Test (12/07/2023) Pathologist formerly [facility] Annual BMP Blood Test abstracted Result [facility] Provider HEALTH MAINTENANCE Final Result * Depression Screening (12/07/2023) [facility] Depression Screening abstracted Result [facility] Provider HEALTH MAINTENANCE Final Result * Hemoglobin A1c (12/07/2023) [facility] Hemoglobin A1C 6.2 <=6.5 % Blood Venous blood specimen / Unknown Result [facility] Provider LAB BLOOD ORDERABLES Argelia l Result * (ABNORMAL) Lipid panel (04/29/2023) [facility] LDL/HDL Ratio 3 0 - 4 Triglycerides 116 0 - 150 mg/dL Cholesterol 127 0 - 200 mg/dL HDL 39(A) >=40 mg/dL LDL Cholesterol 65 mg/dL Blood Venous blood specimen / Unknown Result [facility] Provider LAB BLOOD ORDERABLES Argelia l Result * Urine Albumin Creatinine Ratio (08/14/2022) [facility] Urine Albumin Creatinine Ratio abstracted Result [facility] Provider HEALTH MAINTENANCE Final Result * Hepatitis C Screening (12/02/2013) [facility] Hepatitis C Screening abstracted Result [facility] Provider HEALTH MAINTENANCE Final Result from Last 3 Months or Most Recently Relevant to Health Maintenance Insurance [address] [place] [address] [facility] MEDICARE Member Subscriber Plan / Payer (Ef fective 2014-Present) Name:Frederick Jaimes Relation to Subscriber:Self Name:Frederick Jaimes Payer ID:[id number] Group ID:[id number] Type:Not on file Address: [address] [place] [address] Care Teams Solutions Specialist Relationship Specialty Start Date End Date Amanda Cain MD [address] [place] [address] PCP - General Internal Medicine 11/08/20
--- OUTSIDE RECORDS SUMMARY | 2024-06-24 11:33 | XMS_ITS | Patient Health Record ---
Author Organization [facility] Address [address] [place] [address] Care Team Providers Care Human Resources Department Supervisor Name Role Phone Cecilia Corcoran Primary Care Provid er Unavailable Lamont Rangel Unavailable [phone] NICOLE, BRENT Unavailable Unavailable Reason For Referral No Information Medications Medication SIG (Take, Route, Frequency, Duration) Notes [...] 1 tablet Orally Once a day Active Immunizations Vaccine Route Administration Date Status Comme nts Influenza Unknown 09/23/2018 Refused Social History Tobacco Use: Social History Observation Description Date Details (start date - stop date) Never Smoker NA - NA Tobacco Use/Smoking Question Answer Notes Patient is a nonsmoker Alcohol Screen Question Answer Notes Did you have a drink containing alcohol in the p ast year? No Points 0 Interpretation Negative Section Notes: Nonsmoker; no alcohol. 1 glass of milk per day and 1 slice of cheese/day Nonsmoker; no alcohol. Using soy milk Problems Problem Type SNOMED Code ICD Code Onset Dates Problem Status W/U Status Risk Notes Problem Diarrhea (51647677) Diarrhea (R19.7) Active confirmed Problem 63359428 Diarrhea, unspecified type (R19.7) Active confirmed Plan Of Treatment Pending Test Test Name Order Date CRP [...] Insured Coverage Start Date Coverage End Date [facility] [address] [place] [address] [id number] KAREN HUGHES Self - patient is the insured MEDICAID OF [facility] [address] [place] [address] [id number] KAREN HUGHES Self - patient is the insured Medical (General) History Medical History History ICD Code NIDDM Hypertension Asthma Pulmonary embolism COPD Denies [place] Stroke 2012--left-sided weakness---menta lly [place] Surgical History Surgery Date(Month/Year) percutaneous cholecystostomy tube in 2016 for acalculous cholecystitis-sees Dr. Cooper and is scheduled for an ultrasound of the gallbladder in January 2018 hand surgery
--- NOTE | 2024-06-24 12:33 | PHA.MEDREC ---
Addendum entered by [employer] 06/24/24 13:01: Med rec reviewed Original Note: Pharmacy Consult ? Medication Reconciliation Pharmacy has completed the medication reconciliation. Spoke to family at bedside to confirm med list. Family had a list of patients medications. patient is not currently taking Atorvastatin 40 mg. Utilized list and claims to confirm med list
[2024-06-24 12:41] LABS: ~Lactic Acid-LAB USE ONLY 1.7 mmol/L (0.5-2.0)
--- NOTE | 2024-06-24 12:46 | PM.IMHP ---
History of Present Illness Date of Service: 06/24/24 Chief Complaint: Nausea, vomiting, bloody stool A 79 years old male with PMH of CVA with left sided hemiparesis, DM, HLD, and atrial fibrillation on Eliquis among others presenting to the hospital with 3 days of nausea, vomiting and diarrhea. The patient was evaluated on 06/20 in ED for constipation\pain. CT scan at that point only showed constipation. Stool panel came back positive for Norovirus. He went back home on Enema and bowel regimen but since then he got sick with worsening pain, nausea, vomiting and bloody stool. reported vomiting blood as well. In ED found to have drop in Hb from 13 to 9.9. Elevated K, BUN and Lactic acidosis. Started on IV Bolus, 1 unit blood transfusion, K-Centra and Vit K supplement with calcium gluconate. Admitted for further work up and management. Review of Systems Review of Systems: No fever, chills or weakness No chest pain, palpitation No shortness of breath or coughing having abdominal pain, nausea or vomiting No urinary symptoms No any rash or wounds Yes all other systems are reviewed and are negative [facility] Medical History CVA (cerebral vascular accident) Hyperlipidemia Diabetes Social History Alcohol intake: never Smoked in Last 30 Days: No Advance Directives: No Advance Directives Information Provided: Yes Do you have a plan to hurt others: No Plan Meds Allergies Allergy/AdvReac Type Severity Reaction Status Date / Time No Known Allergies Allergy Verified 06/24/24 09:11 [No Known Allergies*] Active Medications: Current Medications Pantoprazole Sodium 80 mg/ (Sodium Chloride) 100 mls @ 10 mls/hr IV .Q10H [facility] Last Admin: 06/24/24 11:20 Dose: 8 mg/hr, 10 mls/hr Home Medications ?Medication ?Instructions ?Recorded ?Confirmed ?Last Taken ?Type apixaban 5 mg tablet (Eliquis) 5 mg PO BID 06/24/24 06/24/24 06/23/24 History cetirizine 10 mg tablet 10 mg PO DAILY 06/24/24 06/24/24 06/23/24 History enalapril maleate 2.5 mg tablet 2.5 mg PO DAILY 06/24/24 06/24/24 06/23/24 History glipizide 5 mg tablet, extended 5 mg PO DAILY 06/24/24 06/24/24 06/23/24 History release 24 hr Physical Exam Vital Signs and Narrative: Vital Signs: Last Vital Signs Temp 98.9 F 06/24/24 11:33 Pulse 101 H 06/24/24 11:33 Resp 19 06/24/24 11:33 BP 106/56 L 06/24/24 11:33 Pulse Ox 100 06/24/24 11:33 O2 Del Method Nasal Cannula 06/24/24 11:33 O2 Flow Rate 2 06/24/24 11:33 Oxygen Flow Rate 2 06/24/24 09:09 BMI result Body Mass Index 18.9 Const: Other: Constitutional : Awake, interactive, not in distress Neck : Normal inspection, Supple Cardiovascular : RRR, no JVP, no lower extremity edema Respiratory : good bilateral air entry, no crackles, wheezes or rhonchi Gastrointestinal: soft, lax, Normal bowel sounds, generalized tenderness Skin : Warm, Dry Neurological : Alert & oriented x3, No focal deficit Results Labs 06/24/24 15:15 06/24/24 15:15 Labs: Laboratory Results - last 24 hr 06/24/24 06/24/24 06/24/24 09:12 09:14 09:54 MCV 100.3 H MCH 33.4 H MCHC 33.3 RDW 14.6 Plt Count 272 MPV 10.0 Immature Gran % (Auto) 0.4 Neut % (Auto) 66.3 Lymph % (Auto) 21.9 [place] % (Auto) 5.9 Eos % (Auto) 4.6 H Baso % (Auto) 0.9 Lymph # (Auto) 2.8 [place] # (Auto) 0.8 Eos # (Auto) 0.6 H Baso # (Auto) 0.1 Abs Immat Gran (auto) 0.05 H Absolute Neuts (auto) 8.6 H Absolute Nucleated RBC 0.000 Nucleated RBC % (auto) 0.0 PT 18.1 H INR 1.6 H Anion Gap 15 Estim Creat Clear Calc 64.1 Estimated GFR > 60 Random Glucose 248 H Lactic Acid 4.8 H* Lactic Acid F/U @ 2Hr Calcium 7.9 L D Magnesium 2.1 Total Bilirubin 0.3 AST 23 ALT < 6 Alkaline Phosphatase 67 Total Protein 6.0 L Albumin 2.8 L Urine Color Urine Appearance Urine pH Ur Specific [place] Urine Protein Urine Glucose (UA) Urine Ketones Urine Blood Urine Nitrite Ur Leukocyte Esterase Influenza Type A (PCR) NEGATIVE Influenza Type B (PCR) NEGATIVE RSV RNA Qual (PCR) NEGATIVE SARS-CoV-2 RNA (RT-PCR) NEGATIVE Blood Type A Positive Antibody Screen NEGATIVE Crossmatch See Detail 06/24/24 06/24/24 10:14 12:18 MCV MCH MCHC RDW Plt Count MPV Immature Gran % (Auto) Neut % (Auto) Lymph % (Auto) [place] % (Auto) Eos % (Auto) Baso % (Auto) Lymph # (Auto) [place] # (Auto) Eos # (Auto) Baso # (Auto) Abs Immat Gran (auto) Absolute Neuts (auto) Absolute Nucleated RBC Nucleated RBC % (auto) PT INR Anion Gap Estim Creat Clear Calc Estimated GFR Random Glucose Lactic Acid Lactic Acid F/U @ 2Hr 1.7 Calcium Magnesium Total Bilirubin AST ALT Alkaline Phosphatase Total Protein Albumin Urine Color Yellow Urine Appearance Clear Urine pH 7.0 Ur Specific [place] >= 1.030 H Urine Protein Negative Urine Glucose (UA) 100 H Urine Ketones 15 Urine Blood Negative Urine Nitrite Negative Ur Leukocyte Esterase Negative Influenza Type A (PCR) Influenza Type B (PCR) RSV RNA Qual (PCR) SARS-CoV-2 RNA (RT-PCR) Blood Type Antibody Screen Crossmatch Imaging Radiologist's Impressions: Impressions Abdomen/Pelvis CT 06/24/24 09:36 IMPRESSION: 1. Large amount of stool in the descending and sigmoid colon and a very large amount of stool in the rectum. 2. Dilated, fluid-filled appendix without inflammatory change. A mucocele is not excluded and colonoscopy is recommended. Electronically signed by: Lamont Amaya MD 06/24/2024 10:25 AM [facility] Assessment and Plan (1) Acute blood loss anemia: Status: Acute (2) Norovirus: Status: Acute (3) GI bleed: Status: Acute (4) Acute hyperkalemia: Status: Acute (5) Acute lactic acidosis: Status: Acute Plan A 79 years old male with PMH of CVA with left sided hemiparesis, DM, HLD, and atrial fibrillation on Eliquis among others presenting to the hospital with 3 days of nausea, vomiting and diarrhea. Acute blood loss anemia 2/2 GI Bleed in context of Norovirus infx and Eliquis use Hold Eliquis received K-centra and Vit K 1 unit of PRBCs get GI consult IV Pantoprazole IVF as needed NPO , advance diet as tolerated follow H&H Acute hyperkalemia Lokelma given follow K Acute Lactic acidosis Secondary to hypoperfusion from blood loss responded to IV bolus Hyperglycemia in Type II DM not on insulin, hold Glipizide start SSI Hx Afib Hold Eliquis HTN Hold Enalapril DVT PPx SCDs The patient will need 2 overnight hospital stay for treatment of blood loss anemia and GI bleed pending close H&H monitoring and GI evaluation Quality Stroke Does the patient have a stroke diagnosis?: No VTE Prior VTE?: No VTE Risk Level:: Medical - moderate - high VTE Device Contraindication: N/A - Device Ordered VTE Drug Contraindication: Treatment Not Indicated
--- NOTE | 2024-06-24 12:49 | PC.NURSE ---
Pt incontinent of large amount of liquid, dark red stool x2; MD aware; pt cleaned/changed
--- NOTE | 2024-06-24 13:36 | PC.NURSE ---
Rectal tube in place; pt tolerated well
--- NOTE | 2024-06-24 14:31 | PM.GICN ---
History of Present Illness Data of Consult Service Date: 06/24/24 Requesting physician: Nelly Shah Primary Care Provider: Amanda Cain MD HPI Reason for consult: hematemesis, LGIB 79-year-old gentleman with known medical history of CVA with residual left-sided weakness 2/2 atrial fibrillation on eliquis, type 2 diabetes, hyperlipidemia, who was brought to the emergency room for confusion, abdominal pain and hematemesis. Patient reports that he had been feeling weak and nauseous for almost a month, and reported this to his 's son-also his VP PATIENT, who did not bring him to the doctor's office or hospital at that time. Patient was seen in the emergency room a few days ago as well for increasing abdominal pain which was attributed to norovirus. Since yesterday, he has also been having vomiting. He does not know if it had blood in it yesterday. This morning he was noted to be confused, lethargic and had coffee grounds emesis and was therefore brought in. In the emergency room, he arrived with hypotension, hypothermia and tachycardia. Initial lactate was 4.8, which improved rapidly with resuscitation. He was also noted to have hematochezia. Labs with hemoglobin of 9.9, down from 13.2 a few days ago. Chem 7 with hyperkalemia and elevated BUN to creatinine ratio. Patient also underwent CT abdomen and pelvis with IV contrast that shows large stool burden in left colon, including a fecal ball in rectum. Patient also has a fluid-filled appendix suspicious for mucocele. Review of Systems Review of Systems: Yes all other systems are reviewed and are negative PMFSH Past Medical History Medical History CVA (cerebral vascular accident) Hyperlipidemia Diabetes Social History Social History Alcohol intake: never Smoked in Last 30 Days: No Advance Directives: No Advance Directives Information Provided: Yes Do you have a plan to hurt others: No Plan Meds Allergies Allergy/AdvReac Type Severity Reaction Status Date / Time No Known Allergies Allergy Verified 06/24/24 09:11 [No Known Allergies*] Active Medications: Current Medications Acetaminophen (Acetaminophen 325 Mg Tablet) 650 mg PO Q6H PRN PRN Reason: Pain, Mild 1-3,fever,headache Calcium Carbonate (Calcium Carbonate 750 Mg Tab.Chew) 750 mg PO Q4H PRN PRN Reason: Heartburn Pantoprazole Sodium 80 mg/ (Sodium Chloride) 100 mls @ 10 mls/hr IV .Q10H [facility] Last Admin: 06/24/24 11:20 Dose: 8 mg/hr, 10 mls/hr Insulin Human Lispro (Insulin Lispro 100 Unit/Ml 3 Ml Vial) 0 unit [facility]BCUT [facility]; Protocol Magnesium Hydroxide (Milk Of Magnesia 30 Ml Oral.Susp) 30 ml PO DAILY PRN PRN Reason: Constipation Melatonin (Melatonin 3 Mg Tablet) 6 mg PO BEDTIME PRN PRN Reason: Insomnia Ondansetron HCl (Ondansetron Hcl 4 Mg/2 Ml Vial) 4 mg IVPUSH Q8H PRN PRN Reason: Nausea and Vomiting Sodium Chloride (0.9 % Sodium Chloride Flush 3 Ml Syringe) [facility] Medications ?Medication ?Instructions ?Recorded ?Confirmed ?Last Taken ?Type apixaban 5 mg tablet (Eliquis) 5 mg PO BID 06/24/24 06/24/24 06/23/24 History cetirizine 10 mg tablet 10 mg PO DAILY 06/24/24 06/24/24 06/23/24 History enalapril maleate 2.5 mg tablet 2.5 mg PO DAILY 06/24/24 06/24/24 06/23/24 History glipizide 5 mg tablet, extended 5 mg PO DAILY 06/24/24 06/24/24 06/23/24 History release 24 hr Physical Exam Vital Signs: Vital Signs: Last Vital Signs Temp 98.9 F 06/24/24 11:33 Pulse 101 H 06/24/24 11:33 Resp 19 06/24/24 11:33 BP 106/56 L 06/24/24 11:33 Pulse Ox 100 06/24/24 11:33 O2 Del Method Nasal Cannula 06/24/24 11:33 O2 Flow Rate 2 06/24/24 11:33 Oxygen Flow Rate 2 06/24/24 09:09 BMI result Body Mass Index 18.9 elderly male tachypneac edentulous, dried blood in oropharynx abd soft, nontender, nondistended no ETHAN Results Labs 06/24/24 15:15 06/24/24 15:15 Labs: Short CBC 06/24/24 Range/Units 09:12 WBC 12.9 H (4.8-10.8) X10*3/uL Hgb 9.9 L D (14.0-18.0) g/dl Hct 29.7 L D (42.0-52.0) % Plt Count 272 (160-400) X10*3/uL BMP 06/24/24 09:12 Sodium 137 Potassium 5.5 H D Chloride 110 H Carbon Dioxide 18 L BUN 41 H Creatinine 0.79 Calcium 7.9 L D Liver Function 06/24/24 Range/Units 09:12 Total Bilirubin 0.3 (0.0-1.0) mg/dL AST 23 (5-37) U/L ALT < 6 (0-40) U/L Alkaline Phosphatase 67 (39-117) U/L Albumin 2.8 L (3.5-5.0) g/dL Urine 06/24/24 Range/Units 10:14 Urine Color Yellow Urine Appearance Clear Urine pH 7.0 (5.0-9.0) Ur Specific [place] >= 1.030 H (1.005-1.025) Urine Protein Negative (Neg-Trace) mg/dL Urine Glucose (UA) 100 H (Negative) mg/dL Assessment and Plan (1) Acute blood loss anemia: Status: Acute (2) GI bleed: Status: Acute (3) Hematemesis: Status: Acute (4) Hematochezia: Status: Acute (5) Abnormal CT of the abdomen: Status: Acute (6) Chronic anticoagulation: Status: Acute Plan Pt presenting with both hematemesis and hematochezia. Ddx include brisk GI bleed vs different sources of bleed such as MWT vs esophagitis vs PUD for upper and stercoral ulcer/colitis for lower. Latter more likely as rapid improvement with IVF and appropriate raise in H/H with 1u PRBC argues against ongoing rapid UGIB. Plan: - chest XR for worsening shortness of breath - Check CBC BID - Anticoagulation on hold - Cont protonix drip - OK for clears today - NPO after MN for egd/flex sig tmrw if resp status allows. - Appendix finding noted however pt will likely not tolerate 4L prep for full colonoscopy with ongoing N/V. Can be considered as outpatient. Thank you for allowing me to participate in his care. Please do not hesitate to reach out for any questions or concerns. Procedures Date of Service Date of Service: 06/24/24
[2024-06-24 14:55] LABS: OBS Int Ctl Valid YES; OBS1 POSITIVE (NEGATIVE)
[2024-06-24] MEDS: Lactated Ringers 1,000 ML 80 ML IVCONT (15:16)
[2024-06-24 15:25] LABS: Hematocrit 31.1 % (42.0-52.0); Hemoglobin 10.4 g/dl (14.0-18.0); Mean Corpuscular HGB Conc 33.4 g/dl (31.0-36.0); Mean Corpuscular Hemoglobin 32.4 pg (27.0-33.0); Mean Corpuscular Volume 96.9 fL (80.0-98.0); Mean Platelet Volume 9.8 fL (9.4-12.4); Platelet Count 231 X10*3/uL (160-400); Red Blood Count 3.21 X10*6/uL (4.60-5.80); Red Cell Distribution Width 14.9 % (11.0-16.0); White Blood Count 18.9 X10*3/uL (4.8-10.8)
[2024-06-24 15:38] LABS: Anion Gap 10 (12-20); Blood Urea Nitrogen 41 mg/dL (9-16); Calcium 8.1 mg/dL (8.4-10.2); Carbon Dioxide 21 mmol/L (22-29); Chloride 111 mmol/L (96-108); Creatinine Clr Calc Pharmacy 79.1; Estimated Glomerular Filt Rate > 60; Glucose Random 198 mg/dL (60-115); Potassium 4.6 mmol/L (3.3-5.1); Sodium 137 mmol/L (135-145)
[2024-06-24 19:03] LABS: Glucose, Whole Blood 128 mg/dL (60-115)
[2024-06-24 20:24] LABS: Glucose, Whole Blood 91 mg/dL (60-115)
[2024-06-24 21:26] LABS: Hematocrit 33.2 % (42.0-52.0); Hemoglobin 11.8 g/dl (14.0-18.0); Mean Corpuscular HGB Conc 35.5 g/dl (31.0-36.0); Mean Corpuscular Hemoglobin 33.1 pg (27.0-33.0); Mean Platelet Volume 9.8 fL (9.4-12.4); Platelet Count 196 X10*3/uL (160-400); Red Blood Count 3.57 X10*6/uL (4.60-5.80); White Blood Count 14.1 X10*3/uL (4.8-10.8)
[2024-06-25] VITALS (11 sets, daily range): BP systolic 105–142; BP diastolic 56–74; PULSE 77–98; RESP 16–18; TEMP 36.2–37.1; O2SAT 95–100
[2024-06-25] MEDS: Lactated Ringers 1,000 ML 80 ML IVCONT ×2 (03:46→09:59)
[2024-06-25 07:02] LABS: MANUAL DIFF FLAG NO
[2024-06-25 07:05] LABS: Basophils Absolute Auto 0.1 X10*3/uL (0.0-0.2); Basophils Percent Auto 0.7 % (0-2); Eosinophils Absolute Auto 1.1 X10*3/uL (0.0-0.4); Eosinophils Percent Auto 11.9 % (0-4); Hemoglobin 11.3 g/dl (14.0-18.0); Imm Gran Abs Auto 0.03 X10*3/uL (0.00-0.03); Imm Gran Pct Auto 0.3 % (0.0-0.4); Lymphocytes Absolute Auto 1.6 X10*3/uL (1.2-4.9); Lymphocytes Percent Auto 16.8 % (20-40); Mean Corpuscular HGB Conc 34.2 g/dl (31.0-36.0); Mean Corpuscular Hemoglobin 32.2 pg (27.0-33.0); Mean Platelet Volume 9.7 fL (9.4-12.4); Monocytes Absolute Auto 0.6 X10*3/uL (0.1-1.2); Neutrophils Absolute Auto 6.1 x10*3/uL (2.0-8.3); Neutrophils Percent Auto 64.3 % (45-73); Platelet Count 178 X10*3/uL (160-400); Red Blood Count 3.51 X10*6/uL (4.60-5.80); Red Cell Distribution Width 15.5 % (11.0-16.0); White Blood Count 9.5 X10*3/uL (4.8-10.8)
[2024-06-25 07:24] LABS: Alanine Aminotransferase < 6 U/L (0-40); Albumin Level 2.8 g/dL (3.5-5.0); Alkaline Phosphatase 68 U/L (39-117); Anion Gap 11 (12-20); Aspartate Amino Transferase 15 U/L (5-37); Bilirubin Total 0.7 mg/dL (0.0-1.0); Blood Urea Nitrogen 31 mg/dL (9-16); Calcium 7.9 mg/dL (8.4-10.2); Carbon Dioxide 20 mmol/L (22-29); Chloride 114 mmol/L (96-108); Creatinine Clr Calc Pharmacy 95.5; Estimated Glomerular Filt Rate > 60; Glucose Random 68 mg/dL (60-115); Potassium 3.8 mmol/L (3.3-5.1); Sodium 141 mmol/L (135-145); Total Protein 5.7 g/dL (6.5-8.0)
[2024-06-25 07:31] LABS: Glucose, Whole Blood 63 mg/dL (60-115)
[2024-06-25] MEDS: glucagon HCL 1 MG VIAL IVPUSH (08:30)
[2024-06-25] MEDS: 0.9 % Sodium Chloride Flush 3 ML SYRINGE IVFLUSH ×2 (08:32→16:15)
[2024-06-25 09:49] LABS: Glucose, Whole Blood 93 mg/dL (60-115)
[2024-06-25] MEDS: Pantoprazole Sodium 80 MG in 0.9 % Sodium Chloride 80 ML 10 MG IV ×2 (09:56→19:54)
--- NOTE | 2024-06-25 10:13 | MHC.SHP ---
Pre-Procedural Eval Section A - 24 Hr Update-Section A only Date of Service: 06/25/24 The patient is an INPATIENT: Yes The patient has been examined within 24 hours of the surgical procedure. The History & Physical has been completed within 30 days and I have reviewed it.: Yes Section B - Complete if H&P > 30 days Chief Complaint: Hematemesis, rectal bleeding Allergies: Allergies Allergy/AdvReac Type Severity Reaction Status Date / Time No Known Allergies Allergy Verified 06/24/24 09:11 [No Known Allergies*] Plan Diagnosis/Plan: Unchanged I have reviewed the history and physical and performed a pertinent physical examination on my patient. No changes have occurred unless specified. Time Spent With Patient Time: Total time managing care of this patient today ____ minutes.
[2024-06-25] MEDS: Sodium Phosphate,Mono-Dibasic 133 ML ENEMA PR ×2 (10:31→10:57)
--- NOTE | 2024-06-25 10:41 | PC.NURSE ---
rectal tube removed , fleet enema administered
--- NOTE | 2024-06-25 12:05 | P.OPN-COLO_ITS ---
Colonoscopy Operative Note Operative Note Date of Service: 06/25/24 Narrative: Procedure: Upper endoscopy and flexible sigmoidoscopy Indication: Abd pain, hematemesis, hematochezia Endoscopist: Yuni Noriega MD Anesthesia Provider: Dr Lily Cross Anesthesia type: MAC Instrument: [id number] EGD Procedure:?? The procedure, indications, preparation and potential complications were reviewed with the patient with the help of assistant manager pt who indicated understanding and gave written informed consent to proceed. The endoscope was introduced through the mouth, and advanced to the 2nd part of the duodenum. The mucosa was carefully examined on slow withdrawal of the endoscope. The patient tolerated the procedure well. There were no immediate complications.? EGD Findings:? * Esophagus:? Normal esophageal mucosa was noted. The Z-line was at 38 cm. * Stomach:? Normal gastric mucosa. Retroflexion was performed in the cardia. * Duodenum:?A large 15 mm ulcer with pigment spot noted in duodenal bulb just post-pylorus. Duodenitis of the duodenal bulb noted. Scope was withdrawn and distal attachment was placed for better visualization and stability. x3 endoclips placed for hemostasis. 2 aliquots of 1 cc epinephrine injected around the edges. Flexible sigmoidoscopy procedure:? The patient was then turned for the sigmoidoscopy. A digital rectal exam was performed which was normal.? The gastroscope was then inserted through the anus and advanced through the distal sigmoid colon. Mucosa was carefully examined under high definition white light as the instrument was slowly withdrawn in a retrograde panoramic fashion. Retroflexion was performed in rectum. The procedure was not difficult. The quality of the prep was poor. Limitations: Poor prep Findings: Mucosa: Copious BROWN liquid stool noted in rectum and sigmoid colon. Underlying colon mucosa appeared normal to the extent examined. Impression: 1. Normal esophagus 2. Normal stomach 3. Duodenal bulb ulcer [place] [facility] (x3 endoclips, epi inj) 4. Brown stool in rectosigmoid Recommendations:?? * Avoid NSAIDs * Cont IV protonix x total of 72h and then switch to PO BID x 8 weeks and then once daily * Hold anticoagulation today * Monitor CBC * If no evidence of rebleeding or drop in H/H in the next 1-2 days, can be resumed * OK for clear liquids today. Can advance if no recurrence of bleeding on next H/H. 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
--- NOTE | 2024-06-25 12:09 | P.PNIM_ITS ---
Subjective Subjective Date of Service: 06/25/24 Interval History: Seen and evaluated this morning feels better no further drop in Hb no reported bleeding overnight pending EGD\sigmoidoscopy later today Review of Systems Review of Systems: Yes all other systems are reviewed and are negative Physical Exam 2 Vital Signs: Vital Signs: Last Vital Signs Temp 97.2 F 06/25/24 07:23 Pulse 77 06/25/24 07:23 Resp 16 06/25/24 07:23 BP 118/57 L 06/25/24 07:23 Pulse Ox 95 06/25/24 07:23 O2 Del Method Room Air 06/25/24 07:23 O2 Flow Rate 1 06/25/24 03:23 Oxygen Flow Rate 2 06/24/24 09:09 BMI result Body Mass Index 21.8 Const: Other: Constitutional : Awake, interactive, not in distress Neck : Normal inspection, Supple Cardiovascular : RRR, no JVP, no lower extremity edema Respiratory : good bilateral air entry, no crackles, wheezes or rhonchi Gastrointestinal: soft, lax, Normal bowel sounds, generalized tenderness Skin : Warm, Dry Neurological : Alert & oriented x3, No focal deficit Objective Data Active Medications Acetaminophen (Acetaminophen 325 Mg Tablet) 650 mg PO Q6H PRN PRN Reason: Pain, Mild 1-3,fever,headache Calcium Carbonate (Calcium Carbonate 750 Mg Tab.Chew) 750 mg PO Q4H PRN PRN Reason: Heartburn Glucagon (Glucagon Hcl 1 Mg Vial) 1 mg IVPUSH ONCE PRN PRN Reason: hypoglycemia Pantoprazole Sodium 80 mg/ (Sodium Chloride) 100 mls @ 10 mls/hr IV .Q10H [facility] Last Admin: 06/25/24 09:56 Dose: 8 mg/hr, 10 mls/hr Documented By: JOSE Lactated Ringer's (Lr) 1,000 mls @ 80 mls/hr IVCONT .[id number] [facility] Last Admin: 06/25/24 09:59 Dose: 80 mls/hr Documented By: JOSE Insulin Human Lispro (Insulin Lispro 100 Unit/Ml 3 Ml Vial) 0 unit SUBCUT QIDACHS [facility]; Protocol Last Admin: 06/25/24 08:32 Dose: Not Given Documented By: JOSE Non-Admin Reason: No Insulin Coverage Magnesium Hydroxide (Milk Of Magnesia 30 Ml Oral.Susp) 30 ml PO DAILY PRN PRN Reason: Constipation Melatonin (Melatonin 3 Mg Tablet) 6 mg PO BEDTIME PRN PRN Reason: Insomnia Ondansetron HCl (Ondansetron Hcl 4 Mg/2 Ml Vial) 4 mg IVPUSH Q8H PRN PRN Reason: Nausea and Vomiting Polyethylene Glycol (Polyethylene Glycol 3350 17 Gm Powd.Pack) 17 gm PO DAILY [facility] Last Admin: 06/25/24 08:34 Dose: Not Given Documented By: JOSE Non-Admin Reason: NPO Senna (Sennosides 8.6 Mg Tablet) 8.8 mg PO BEDTIME [facility] Last Admin: 06/24/24 23:43 Dose: Not Given Documented By: CHEY Non-Admin Reason: Patient Refused Sodium Chloride (0.9 % Sodium Chloride Flush 3 Ml Syringe) 3 ml IVFLUSH QSHIFT [facility] Last Admin: 06/25/24 08:32 Dose: 3 ml Documented By: JOSE Labs 06/25/24 06:56 06/25/24 06:56 Labs: Laboratory Results - last 24 hr 06/24/24 06/24/24 06/24/24 09:09 09:54 12:18 MCV MCH MCHC RDW Plt Count MPV Immature Gran % (Auto) Neut % (Auto) Lymph % (Auto) [place] % (Auto) Eos % (Auto) Baso % (Auto) Lymph # (Auto) [place] # (Auto) Eos # (Auto) Baso # (Auto) Abs Immat Gran (auto) Absolute Neuts (auto) Absolute Nucleated RBC Nucleated RBC % (auto) Anion Gap Estim Creat Clear Calc Estimated GFR POC Glucose Random Glucose Lactic Acid F/U @ 2Hr 1.7 Calcium Total Bilirubin AST ALT Alkaline Phosphatase Total Protein Albumin Stool Occult Blood POSITIVE Blood Type A Positive Antibody Screen NEGATIVE Crossmatch See Detail 06/24/24 06/24/24 06/24/24 15:15 18:26 20:19 MCV 96.9 MCH 32.4 MCHC 33.4 RDW 14.9 Plt Count 231 MPV 9.8 Immature Gran % (Auto) Neut % (Auto) Lymph % (Auto) [place] % (Auto) Eos % (Auto) Baso % (Auto) Lymph # (Auto) [place] # (Auto) Eos # (Auto) Baso # (Auto) Abs Immat Gran (auto) Absolute Neuts (auto) Absolute Nucleated RBC 0.000 Nucleated RBC % (auto) 0.0 Anion Gap 10 L Estim Creat Clear Calc 79.1 Estimated GFR > 60 POC Glucose 128 H 91 Random Glucose 198 H Lactic Acid F/U @ 2Hr Calcium 8.1 L Total Bilirubin AST ALT Alkaline Phosphatase Total Protein Albumin Stool Occult Blood Blood Type Antibody Screen Crossmatch 06/24/24 06/25/24 06/25/24 21:15 06:56 07:23 MCV 93.0 94.0 MCH 33.1 H 32.2 MCHC 35.5 34.2 RDW 15.0 15.5 Plt Count 196 178 MPV 9.8 9.7 Immature Gran % (Auto) 0.3 Neut % (Auto) 64.3 Lymph % (Auto) 16.8 L [place] % (Auto) 6.0 Eos % (Auto) 11.9 H Baso % (Auto) 0.7 Lymph # (Auto) 1.6 [place] # (Auto) 0.6 Eos # (Auto) 1.1 H Baso # (Auto) 0.1 Abs Immat Gran (auto) 0.03 Absolute Neuts (auto) 6.1 Absolute Nucleated RBC 0.000 0.000 Nucleated RBC % (auto) 0.0 0.0 Anion Gap 11 L Estim Creat Clear Calc 95.5 Estimated GFR > 60 POC Glucose 63 Random Glucose 68 Lactic Acid F/U @ 2Hr Calcium 7.9 L Total Bilirubin 0.7 AST 15 ALT < 6 Alkaline Phosphatase 68 Total Protein 5.7 L Albumin 2.8 L Stool Occult Blood Blood Type Antibody Screen Crossmatch 06/25/24 09:44 MCV MCH MCHC RDW Plt Count MPV Immature Gran % (Auto) Neut % (Auto) Lymph % (Auto) [place] % (Auto) Eos % (Auto) Baso % (Auto) Lymph # (Auto) [place] # (Auto) Eos # (Auto) Baso # (Auto) Abs Immat Gran (auto) Absolute Neuts (auto) Absolute Nucleated RBC Nucleated RBC % (auto) Anion Gap Estim Creat Clear Calc Estimated GFR POC Glucose 93 Random Glucose Lactic Acid F/U @ 2Hr Calcium Total Bilirubin AST ALT Alkaline Phosphatase Total Protein Albumin Stool Occult Blood Blood Type Antibody Screen Crossmatch Microbiology Microbiology Results: Microbiology 06/24/24 09:12 Blood Culture - Preliminary Blood - Venous No growth after 24 hours. 06/24/24 09:12 Blood Culture - Preliminary Blood - Venous No growth after 24 hours. Assessment and Plan (1) Chronic anticoagulation: Status: Acute (2) Abnormal CT of the abdomen: Status: Acute (3) Hematochezia: Status: Acute (4) Hematemesis: Status: Acute (5) Acute lactic acidosis: Status: Acute Plan A 79 years old male with PMH of CVA with left sided hemiparesis, DM, HLD, and atrial fibrillation on Eliquis among others presenting to the hospital with 3 days of nausea, vomiting and diarrhea. Acute blood loss anemia 2/2 GI Bleed in context of Norovirus infx and Eliquis use Hold Eliquis, received K-centra and Vit K Hb at 11.3 after 1 unit of PRBCs GI consult, EGD\sigmoidoscopy later today IV Pantoprazole IVF as needed advance diet as tolerated after procedure follow H&H Acute hyperkalemia Lokelma given follow K Acute Lactic acidosis Secondary to hypoperfusion from blood loss responded to IV bolus Hypoglycemia in Type II DM not on insulin, hold Glipizide SSI Give Glucagon and D5LR Hx Afib Hold Eliquis HTN Hold Enalapril DVT PPx SCDs The patient will need overnight hospital stay for treatment of blood loss anemia and GI bleed pending close H&H monitoring and GI evaluation Quality Stroke Does the patient have a stroke diagnosis?: No VTE Prior VTE?: No VTE Risk Level:: Medical - moderate - high VTE Device Contraindication: N/A - Device Ordered VTE Drug Contraindication: Treatment Not Indicated
[2024-06-25] MEDS: Dextrose 5 % and Lactated Ring 1,000 ML 80 ML IVCONT (12:39)
[2024-06-25 12:51] LABS: Glucose, Whole Blood 65 mg/dL (60-115)
--- NOTE | 2024-06-25 12:55 | HO.ANESPROP2 ---
[facility] Active Problems Active Problems: All Active Problems Chronic anticoagulation (Acute) Abnormal CT of the abdomen (Acute) Hematochezia (Acute) Hematemesis (Acute) Acute lactic acidosis (Acute) Acute hyperkalemia (Acute) GI bleed (Acute) Norovirus (Acute) Acute blood loss anemia (Acute) Past Medical History Medical History CVA (cerebral vascular accident) Hyperlipidemia Diabetes Family History Family history of problems with anesthesia: No Surgical History History of Problems with Anesthesia: No Social History Social History Household Members: Spouse Housing: Condominium Do you presently have visiting nurse or other home services: Yes (pt. unsure.) Alcohol intake: never Patient Tobacco Use Status: Never used Tobacco Meds Allergies Allergy/AdvReac Type Severity Reaction Status Date / Time No Known Allergies Allergy Verified 06/24/24 09:11 [No Known Allergies*] Active Medications: Current Medications Acetaminophen (Acetaminophen 325 Mg Tablet) 650 mg PO Q6H PRN PRN Reason: Pain, Mild 1-3,fever,headache Calcium Carbonate (Calcium Carbonate 750 Mg Tab.Chew) 750 mg PO Q4H PRN PRN Reason: Heartburn Glucagon (Glucagon Hcl 1 Mg Vial) 1 mg IVPUSH ONCE PRN PRN Reason: hypoglycemia Pantoprazole Sodium 80 mg/ (Sodium Chloride) 100 mls @ 10 mls/hr IV .Q10H [facility] Last Admin: 06/25/24 09:56 Dose: 8 mg/hr, 10 mls/hr Dextrose/Lactated Ringer's (D5lr) 1,000 mls @ 80 mls/hr IVCONT .[id number] [facility] Last Admin: 06/25/24 12:39 Dose: 80 mls/hr Insulin Human Lispro (Insulin Lispro 100 Unit/Ml 3 Ml Vial) 0 unit SUBCUT QIDACHS [facility]; Protocol Last Admin: 06/25/24 12:39 Dose: Not Given Magnesium Hydroxide (Milk Of Magnesia 30 Ml Oral.Susp) 30 ml PO DAILY PRN PRN Reason: Constipation Melatonin (Melatonin 3 Mg Tablet) 6 mg PO BEDTIME PRN PRN Reason: Insomnia Ondansetron HCl (Ondansetron Hcl 4 Mg/2 Ml Vial) 4 mg IVPUSH Q8H PRN PRN Reason: Nausea and Vomiting Polyethylene Glycol (Polyethylene Glycol 3350 17 Gm Powd.Pack) 17 gm PO DAILY [facility] Last Admin: 06/25/24 08:34 Dose: Not Given Senna (Sennosides 8.6 Mg Tablet) 8.8 mg PO BEDTIME [facility] Last Admin: 06/24/24 23:43 Dose: Not Given Sodium Chloride (0.9 % Sodium Chloride Flush 3 Ml Syringe) 3 ml IVFLUSH QSHIFT [facility] Last Admin: 06/25/24 08:32 Dose: 3 ml Home Medications ?Medication ?Instructions ?Recorded ?Confirmed ?Last Taken ?Type apixaban 5 mg tablet (Eliquis) 5 mg PO BID 06/24/24 06/24/24 06/23/24 History cetirizine 10 mg tablet 10 mg PO DAILY 06/24/24 06/24/24 06/23/24 History enalapril maleate 2.5 mg tablet 2.5 mg PO DAILY 06/24/24 06/24/24 06/23/24 History glipizide 5 mg tablet, extended 5 mg PO DAILY 06/24/24 06/24/24 06/23/24 History release 24 hr Exam Height,Weight and Vital Signs: Height 5 ft 10 in Weight 68.9 kg Last Vital Signs Temp 98.1 F 06/25/24 12:27 Pulse 94 06/25/24 12:27 Resp 18 06/25/24 12:27 BP 137/71 06/25/24 12:27 Pulse Ox 98 06/25/24 12:27 O2 Del Method Nasal Cannula 06/25/24 12:27 O2 Flow Rate 2 06/25/24 12:27 Oxygen Flow Rate 2 06/24/24 09:09 Pertinent Lab Results Pertinent Lab Results: Laboratory Tests 06/24/24 06/24/24 06/24/24 09:09 09:12 09:14 WBC 12.9 H RBC 2.96 L D Hgb 9.9 L D Hct 29.7 L D MCV 100.3 H MCH 33.4 H MCHC 33.3 RDW 14.6 Plt Count 272 MPV 10.0 Immature Gran % (Auto) 0.4 Neut % (Auto) 66.3 Lymph % (Auto) 21.9 [place] % (Auto) 5.9 Eos % (Auto) 4.6 H Baso % (Auto) 0.9 Lymph # (Auto) 2.8 [place] # (Auto) 0.8 Eos # (Auto) 0.6 H Baso # (Auto) 0.1 Abs Immat Gran (auto) 0.05 H Absolute Neuts (auto) 8.6 H Absolute Nucleated RBC 0.000 Nucleated RBC % (auto) 0.0 PT 18.1 H INR 1.6 H Sodium 137 Potassium 5.5 H D Chloride 110 H Carbon Dioxide 18 L Anion Gap 15 BUN 41 H Creatinine 0.79 Estim Creat Clear Calc 64.1 Estimated GFR > 60 POC Glucose Random Glucose 248 H Lactic Acid 4.8 H* Lactic Acid F/U @ 2Hr Calcium 7.9 L D Magnesium 2.1 Total Bilirubin 0.3 AST 23 ALT < 6 Alkaline Phosphatase 67 Total Protein 6.0 L Albumin 2.8 L Urine Color Urine Appearance Urine pH Ur Specific Clever Urine Protein Urine Glucose (UA) Urine Ketones Urine Blood Urine Nitrite Ur Leukocyte Esterase Stool Occult Blood POSITIVE Influenza Type A (PCR) NEGATIVE Influenza Type B (PCR) NEGATIVE RSV RNA Qual (PCR) NEGATIVE SARS-CoV-2 RNA (RT-PCR) NEGATIVE Blood Type Antibody Screen Crossmatch 06/24/24 06/24/24 06/24/24 09:54 10:14 12:18 WBC RBC Hgb Hct MCV MCH MCHC RDW Plt Count MPV Immature Gran % (Auto) Neut % (Auto) Lymph % (Auto) [place] % (Auto) Eos % (Auto) Baso % (Auto) Lymph # (Auto) [place] # (Auto) Eos # (Auto) Baso # (Auto) Abs Immat Gran (auto) Absolute Neuts (auto) Absolute Nucleated RBC Nucleated RBC % (auto) PT INR Sodium Potassium Chloride Carbon Dioxide Anion Gap BUN Creatinine Estim Creat Clear Calc Estimated GFR POC Glucose Random Glucose Lactic Acid Lactic Acid F/U @ 2Hr 1.7 Calcium Magnesium Total Bilirubin AST ALT Alkaline Phosphatase Total Protein Albumin Urine Color Yellow Urine Appearance Clear Urine pH 7.0 Ur Specific Clever >= 1.030 H Urine Protein Negative Urine Glucose (UA) 100 H Urine Ketones 15 Urine Blood Negative Urine Nitrite Negative Ur Leukocyte Esterase Negative Stool Occult Blood Influenza Type A (PCR) Influenza Type B (PCR) RSV RNA Qual (PCR) SARS-CoV-2 RNA (RT-PCR) Blood Type A Positive Antibody Screen NEGATIVE Crossmatch See Detail 06/24/24 06/24/24 06/24/24 15:15 18:26 20:19 WBC 18.9 H RBC 3.21 L Hgb 10.4 L Hct 31.1 L MCV 96.9 MCH 32.4 MCHC 33.4 RDW 14.9 Plt Count 231 MPV 9.8 Immature Gran % (Auto) Neut % (Auto) Lymph % (Auto) [place] % (Auto) Eos % (Auto) Baso % (Auto) Lymph # (Auto) [place] # (Auto) Eos # (Auto) Baso # (Auto) Abs Immat Gran (auto) Absolute Neuts (auto) Absolute Nucleated RBC 0.000 Nucleated RBC % (auto) 0.0 PT INR Sodium 137 Potassium 4.6 Chloride 111 H Carbon Dioxide 21 L Anion Gap 10 L BUN 41 H Creatinine 0.64 Estim Creat Clear Calc 79.1 Estimated GFR > 60 POC Glucose 128 H 91 Random Glucose 198 H Lactic Acid Lactic Acid F/U @ 2Hr Calcium 8.1 L Magnesium Total Bilirubin AST ALT Alkaline Phosphatase Total Protein Albumin Urine Color Urine Appearance Urine pH Ur Specific Clever Urine Protein Urine Glucose (UA) Urine Ketones Urine Blood Urine Nitrite Ur Leukocyte Esterase Stool Occult Blood Influenza Type A (PCR) Influenza Type B (PCR) RSV RNA Qual (PCR) SARS-CoV-2 RNA (RT-PCR) Blood Type Antibody Screen Crossmatch 06/24/24 06/25/24 06/25/24 21:15 06:56 07:23 WBC 14.1 H 9.5 RBC 3.57 L 3.51 L Hgb 11.8 L 11.3 L Hct 33.2 L 33.0 L MCV 93.0 94.0 MCH 33.1 H 32.2 MCHC 35.5 34.2 RDW 15.0 15.5 Plt Count 196 178 MPV 9.8 9.7 Immature Gran % (Auto) 0.3 Neut % (Auto) 64.3 Lymph % (Auto) 16.8 L [place] % (Auto) 6.0 Eos % (Auto) 11.9 H Baso % (Auto) 0.7 Lymph # (Auto) 1.6 [place] # (Auto) 0.6 Eos # (Auto) 1.1 H Baso # (Auto) 0.1 Abs Immat Gran (auto) 0.03 Absolute Neuts (auto) 6.1 Absolute Nucleated RBC 0.000 0.000 Nucleated RBC % (auto) 0.0 0.0 PT INR Sodium 141 Potassium 3.8 Chloride 114 H Carbon Dioxide 20 L Anion Gap 11 L BUN 31 H Creatinine 0.53 Estim Creat Clear Calc 95.5 Estimated GFR > 60 POC Glucose 63 Random Glucose 68 Lactic Acid Lactic Acid F/U @ 2Hr Calcium 7.9 L Magnesium Total Bilirubin 0.7 AST 15 ALT < 6 Alkaline Phosphatase 68 Total Protein 5.7 L Albumin 2.8 L Urine Color Urine Appearance Urine pH Ur Specific Clever Urine Protein Urine Glucose (UA) Urine Ketones Urine Blood Urine Nitrite Ur Leukocyte Esterase Stool Occult Blood Influenza Type A (PCR) Influenza Type B (PCR) RSV RNA Qual (PCR) SARS-CoV-2 RNA (RT-PCR) Blood Type Antibody Screen Crossmatch 06/25/24 06/25/24 09:44 12:37 WBC RBC Hgb Hct MCV MCH MCHC RDW Plt Count MPV Immature Gran % (Auto) Neut % (Auto) Lymph % (Auto) [place] % (Auto) Eos % (Auto) Baso % (Auto) Lymph # (Auto) [place] # (Auto) Eos # (Auto) Baso # (Auto) Abs Immat Gran (auto) Absolute Neuts (auto) Absolute Nucleated RBC Nucleated RBC % (auto) PT INR Sodium Potassium Chloride Carbon Dioxide Anion Gap BUN Creatinine Estim Creat Clear Calc Estimated GFR POC Glucose 93 65 Random Glucose Lactic Acid Lactic Acid F/U @ 2Hr Calcium Magnesium Total Bilirubin AST ALT Alkaline Phosphatase Total Protein Albumin Urine Color Urine Appearance Urine pH Ur Specific Clever Urine Protein Urine Glucose (UA) Urine Ketones Urine Blood Urine Nitrite Ur Leukocyte Esterase Stool Occult Blood Influenza Type A (PCR) Influenza Type B (PCR) RSV RNA Qual (PCR) SARS-CoV-2 RNA (RT-PCR) Blood Type Antibody Screen Crossmatch Airway Mallampati Class: III TM Dist: >3cm Neck ROM: Full Denture: Upper and Lower Assessment and Plan Assessment Anesthesia Assessment: Anesthesia Plan Discussed and Chart Reviewed Final Anesthetic Review Family History of Problems with Anesthesia: No History of Problems with Anesthesia: No NPO: Yes ASA Class: III Final Preanesthetic Review: No Changes in Pt Med Stat, Meds/Allgs Chart Reviewed, Consent Obtained/Reviewed and Anes Risks/Benef Reviewed Patient Risk: Intermediate Procedure Risk: Low Anesthetic Plan Anesthetic Plan: TIVA Disposition: Standard PACU
[2024-06-25 13:56] LABS: Glucose, Whole Blood 74 mg/dL (60-115)
[2024-06-25 16:27] LABS: Glucose, Whole Blood 93 mg/dL (60-115)
[2024-06-25 19:58] LABS: Glucose, Whole Blood 181 mg/dL (60-115)
[2024-06-25] MEDS: Sennosides 8.6 MG TABLET 8.8 MG PO (19:58)
[2024-06-25] MEDS: Insulin Lispro 100 UNIT/ML 3 ML VIAL SUBCUT (20:00)
--- NOTE | 2024-06-26 | ECG_ITS ---
Test Reason : converted to Afib , confirm Blood Pressure : */* mmHG Vent. Rate : 144 BPM Atrial Rate : * BPM P-R Int : * ms QRS Dur : 68 ms QT Int : 294 ms P-R-T Axes : * 40 144 degrees QTcB Int : 455 ms Atrial fibrillation with rapid ventricular response Low voltage QRS Inferior and anterolateral ST depression; Abnormal ECG When compared to the previous EKG of june 24 2024, rhythm change; ST depression. Referred By: Kristian Davis Electronically Signed By: SHERI SCHMITZ
[2024-06-26] MEDS: Dextrose 5 % and Lactated Ring 1,000 ML 80 ML IVCONT (03:05)
[2024-06-26 03:15] VITALS: BP 100/56; PULSE 78; RESP 16; TEMP 36.8; O2SAT 100
[2024-06-26 07:15] LABS: MANUAL DIFF FLAG NO
[2024-06-26 07:17] LABS: Basophils Absolute Auto 0.1 X10*3/uL (0.0-0.2); Basophils Percent Auto 0.8 % (0-2); Eosinophils Percent Auto 11.1 % (0-4); Hematocrit 27.4 % (42.0-52.0); Hemoglobin 9.6 g/dl (14.0-18.0); Imm Gran Abs Auto 0.02 X10*3/uL (0.00-0.03); Imm Gran Pct Auto 0.2 % (0.0-0.4); Lymphocytes Absolute Auto 1.3 X10*3/uL (1.2-4.9); Lymphocytes Percent Auto 14.7 % (20-40); Mean Corpuscular Hemoglobin 32.8 pg (27.0-33.0); Mean Corpuscular Volume 93.5 fL (80.0-98.0); Monocytes Absolute Auto 0.6 X10*3/uL (0.1-1.2); Monocytes Percent Auto 7.3 % (2-11); Neutrophils Absolute Auto 5.8 x10*3/uL (2.0-8.3); Neutrophils Percent Auto 65.9 % (45-73); Platelet Count 192 X10*3/uL (160-400); Red Blood Count 2.93 X10*6/uL (4.60-5.80); Red Cell Distribution Width 15.1 % (11.0-16.0); White Blood Count 8.8 X10*3/uL (4.8-10.8)
[2024-06-26 07:25] VITALS: BP 107/58; PULSE 88; RESP 18; TEMP 36.4; O2SAT 98
[2024-06-26 07:32] LABS: Glucose, Whole Blood 101 mg/dL (60-115)
[2024-06-26 07:47] LABS: Blood Urea Nitrogen 17 mg/dL (9-16); Calcium 7.9 mg/dL (8.4-10.2); Creatinine Clr Calc Pharmacy 116.7; Estimated Glomerular Filt Rate > 60; Glucose Random 101 mg/dL (60-115)
[2024-06-26] MEDS: polyethylene glycoL 3350 17 GM POWD.PACK PO (07:47)
[2024-06-26 07:56] LABS: Anion Gap 11 (12-20); Carbon Dioxide 21 mmol/L (22-29); Chloride 115 mmol/L (96-108); Sodium 144 mmol/L (135-145)
[2024-06-26] MEDS: Potassium Chloride Packet 20 MEQ PACKET 40 MEQ PO ×2 (09:29→11:27)
[2024-06-26] MEDS: Pantoprazole Sodium 80 MG in 0.9 % Sodium Chloride 80 ML 10 MG IV ×2 (09:30→20:46)
[2024-06-26 11:24] VITALS: BP 117/56; PULSE 82; RESP 18; TEMP 36.3; O2SAT 100
[2024-06-26 11:26] LABS: Glucose, Whole Blood 161 mg/dL (60-115)
[2024-06-26] MEDS: Insulin Lispro 100 UNIT/ML 3 ML VIAL SUBCUT ×2 (11:29→20:47)
--- NOTE | 2024-06-26 12:32 | MHC.CM.PN ---
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 He lives with his , he has [employer] services 8a to 3p, and midnight -2a. He has a nurse from [facility] that visits once every 2 weeks. For DME, he uses a w/c and a manager emergency . Transport home is by BLS. PCP, we have Amanda Sierra, pt. could not remember name of PCP. DCP: TBD. CM to follow for DC needs.
--- NOTE | 2024-06-26 12:57 | P.PNIM_ITS ---
Subjective Subjective Date of Service: 06/26/24 Interval History: Seen and evaluated this morning feels better drop in Hb to 9.6 this morning, no bleeding reported tolerating clears no other events Review of Systems Review of Systems: Yes all other systems are reviewed and are negative Physical Exam 2 Vital Signs: Vital Signs: Last Vital Signs Temp 97.4 F 06/26/24 11:24 Pulse 82 06/26/24 11:24 Resp 18 06/26/24 11:24 BP 117/56 L 06/26/24 11:24 Pulse Ox 100 06/26/24 11:24 O2 Del Method Nasal Cannula 06/26/24 11:24 O2 Flow Rate 2 06/26/24 11:24 Oxygen Flow Rate 2 06/25/24 12:56 BMI result Body Mass Index 21.8 Const: Other: Constitutional : Awake, interactive, not in distress Neck : Normal inspection, Supple Cardiovascular : RRR, no JVP, no lower extremity edema Respiratory : good bilateral air entry, no crackles, wheezes or rhonchi Gastrointestinal: soft, lax, Normal bowel sounds, generalized tenderness Skin : Warm, Dry Neurological : Alert & oriented x3, left sided hemiparesis Objective Data Active Medications Acetaminophen (Acetaminophen 325 Mg Tablet) 650 mg PO Q6H PRN PRN Reason: Pain, Mild 1-3,fever,headache Calcium Carbonate (Calcium Carbonate 750 Mg Tab.Chew) 750 mg PO Q4H PRN PRN Reason: Heartburn Glucagon (Glucagon Hcl 1 Mg Vial) 1 mg IVPUSH ONCE PRN PRN Reason: hypoglycemia Pantoprazole Sodium 80 mg/ (Sodium Chloride) 100 mls @ 10 mls/hr IV .Q10H [facility] Last Admin: 06/26/24 09:30 Dose: 8 mg/hr, 10 mls/hr Documented By: PODMORP Insulin Human Lispro (Insulin Lispro 100 Unit/Ml 3 Ml Vial) 0 unit SUBCUT QIDACHS [facility]; Protocol Last Admin: 06/26/24 11:29 Dose: 2 unit Documented By: PODMORP Magnesium Hydroxide (Milk Of Magnesia 30 Ml Oral.Susp) 30 ml PO DAILY PRN PRN Reason: Constipation Melatonin (Melatonin 3 Mg Tablet) 6 mg PO BEDTIME PRN PRN Reason: Insomnia Naloxone HCl (Naloxone Hcl 0.4 Mg/Ml Vial) 0.04 mg IVPUSH Q5M PRN PRN Reason: Excessive sedation or RR < 8 Ondansetron HCl (Ondansetron Hcl 4 Mg/2 Ml Vial) 4 mg IVPUSH Q8H PRN PRN Reason: Nausea and Vomiting Polyethylene Glycol (Polyethylene Glycol 3350 17 Gm Powd.Pack) 17 gm PO DAILY [facility] Last Admin: 06/26/24 07:47 Dose: 17 gm Documented By: LEEANNMOCYNTHIA Senna (Sennosides 8.6 Mg Tablet) 8.8 mg PO BEDTIME [facility] Last Admin: 06/25/24 19:58 Dose: 8.8 mg Documented By: N-ZADRT Sodium Chloride (0.9 % Sodium Chloride Flush 3 Ml Syringe) 3 ml IVFLUSH QSHIFT [facility] Last Admin: 06/26/24 07:47 Dose: Not Given Documented By: LEEANNMOCYNTHIA Non-Admin Reason: IV Running Labs 06/26/24 06:27 06/26/24 06:27 Labs: Laboratory Results - last 24 hr 06/25/24 06/25/24 06/25/24 12:37 13:50 16:09 MCV MCH MCHC RDW Plt Count MPV Immature Gran % (Auto) Neut % (Auto) Lymph % (Auto) [place] % (Auto) Eos % (Auto) Baso % (Auto) Lymph # (Auto) [place] # (Auto) Eos # (Auto) Baso # (Auto) Abs Immat Gran (auto) Absolute Neuts (auto) Absolute Nucleated RBC Nucleated RBC % (auto) Anion Gap Estim Creat Clear Calc Estimated GFR POC Glucose 65 74 93 Random Glucose Calcium 06/25/24 06/26/24 06/26/24 19:53 06:27 07:25 MCV 93.5 MCH 32.8 MCHC 35.0 RDW 15.1 Plt Count 192 MPV 10.0 Immature Gran % (Auto) 0.2 Neut % (Auto) 65.9 Lymph % (Auto) 14.7 L [place] % (Auto) 7.3 Eos % (Auto) 11.1 H Baso % (Auto) 0.8 Lymph # (Auto) 1.3 [place] # (Auto) 0.6 Eos # (Auto) 1.0 H Baso # (Auto) 0.1 Abs Immat Gran (auto) 0.02 Absolute Neuts (auto) 5.8 Absolute Nucleated RBC 0.000 Nucleated RBC % (auto) 0.0 Anion Gap 11 L Estim Creat Clear Calc 116.7 Estimated GFR > 60 POC Glucose 181 H 101 Random Glucose 101 Calcium 7.9 L 06/26/24 11:22 MCV MCH MCHC RDW Plt Count MPV Immature Gran % (Auto) Neut % (Auto) Lymph % (Auto) [place] % (Auto) Eos % (Auto) Baso % (Auto) Lymph # (Auto) [place] # (Auto) Eos # (Auto) Baso # (Auto) Abs Immat Gran (auto) Absolute Neuts (auto) Absolute Nucleated RBC Nucleated RBC % (auto) Anion Gap Estim Creat Clear Calc Estimated GFR POC Glucose 161 H Random Glucose Calcium Microbiology Microbiology Results: Microbiology 06/24/24 09:12 Blood Culture - Preliminary Blood - Venous No growth after 48 hours. 06/24/24 09:12 Blood Culture - Preliminary Blood - Venous No growth after 48 hours. Assessment and Plan (1) Chronic anticoagulation: Status: Acute (2) Abnormal CT of the abdomen: Status: Acute (3) Hematochezia: Status: Acute (4) Hematemesis: Status: Acute (5) Duodenal bulb ulcer: Status: Acute Plan A 79 years old male with PMH of CVA with left sided hemiparesis, DM, HLD, and atrial fibrillation on Eliquis among others presenting to the hospital with 3 days of nausea, vomiting and diarrhea. 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, will need outpatient surgical evaluation Acute Lactic acidosis Secondary to hypoperfusion from blood loss responded to IV bolus Hypoglycemia in Type II DM not on insulin, hold Glipizide SSI Give Glucagon and D5LR Hx Afib Hold Eliquis HTN Hold Enalapril DVT PPx SCDs The patient will need overnight hospital stay for treatment of blood loss anemia and GI bleed pending close H&H monitoring and GI evaluation Quality Stroke Does the patient have a stroke diagnosis?: No VTE Prior VTE?: No VTE Risk Level:: Medical - moderate - high VTE Device Contraindication: N/A - Device Ordered VTE Drug Contraindication: Treatment Not Indicated
[2024-06-26 13:03] LABS: Hematocrit 30.8 % (42.0-52.0); Hemoglobin 10.4 g/dl (14.0-18.0); Mean Corpuscular HGB Conc 33.8 g/dl (31.0-36.0); Mean Corpuscular Hemoglobin 32.1 pg (27.0-33.0); Mean Corpuscular Volume 95.1 fL (80.0-98.0); Mean Platelet Volume 9.9 fL (9.4-12.4); Platelet Count 196 X10*3/uL (160-400); Red Blood Count 3.24 X10*6/uL (4.60-5.80); Red Cell Distribution Width 15.1 % (11.0-16.0); White Blood Count 9.5 X10*3/uL (4.8-10.8)
[2024-06-26 14:57] VITALS: BP 115/63; PULSE 129; RESP 20; TEMP 36.4; O2SAT 100
[2024-06-26 15:36] LABS: Glucose, Whole Blood 94 mg/dL (60-115)
[2024-06-26] MEDS: dilTIAZem HCL 125 MG in 0.9 % Sodium Chloride 100 ML 10 MG IVCONT (16:21)
[2024-06-26] MEDS: Sennosides 8.6 MG TABLET 8.8 MG PO (19:47)
[2024-06-26 19:52] VITALS: BP 112/54; PULSE 89; RESP 20; TEMP 36.7; O2SAT 100
[2024-06-26 20:18] LABS: Glucose, Whole Blood 160 mg/dL (60-115)
[2024-06-27] VITALS: BP 109/53; PULSE 72; RESP 18; TEMP 36.6; O2SAT 100
[2024-06-27 04:00] VITALS: BP 107/58; PULSE 82; RESP 17; TEMP 36.6; O2SAT 100
[2024-06-27] MEDS: Pantoprazole Sodium 80 MG in 0.9 % Sodium Chloride 80 ML 10 MG IV (06:28)
[2024-06-27 06:58] LABS: MANUAL DIFF FLAG NO
[2024-06-27 07:02] LABS: Glucose, Whole Blood 97 mg/dL (60-115)
[2024-06-27 07:15] LABS: Basophils Absolute Auto 0.1 X10*3/uL (0.0-0.2); Basophils Percent Auto 0.7 % (0-2); Eosinophils Absolute Auto 0.7 X10*3/uL (0.0-0.4); Eosinophils Percent Auto 7.8 % (0-4); Hemoglobin 9.7 g/dl (14.0-18.0); Imm Gran Abs Auto 0.04 X10*3/uL (0.00-0.03); Imm Gran Pct Auto 0.5 % (0.0-0.4); Lymphocytes Absolute Auto 1.4 X10*3/uL (1.2-4.9); Lymphocytes Percent Auto 16.1 % (20-40); Mean Corpuscular HGB Conc 33.4 g/dl (31.0-36.0); Mean Corpuscular Hemoglobin 32.1 pg (27.0-33.0); Mean Platelet Volume 9.8 fL (9.4-12.4); Monocytes Absolute Auto 0.6 X10*3/uL (0.1-1.2); Monocytes Percent Auto 7.3 % (2-11); Neutrophils Absolute Auto 5.8 x10*3/uL (2.0-8.3); Neutrophils Percent Auto 67.6 % (45-73); Platelet Count 203 X10*3/uL (160-400); Red Blood Count 3.02 X10*6/uL (4.60-5.80); White Blood Count 8.6 X10*3/uL (4.8-10.8)
[2024-06-27 07:24] LABS: Anion Gap 10 (12-20); Blood Urea Nitrogen 13 mg/dL (9-16); Calcium 8.1 mg/dL (8.4-10.2); Carbon Dioxide 24 mmol/L (22-29); Chloride 112 mmol/L (96-108); Estimated Glomerular Filt Rate > 60; Glucose Random 103 mg/dL (60-115); Magnesium 1.9 mg/dL (1.6-2.6); Potassium 3.6 mmol/L (3.3-5.1); Sodium 142 mmol/L (135-145)
--- NOTE | 2024-06-27 07:52 | HO.POSTANES ---
Post Anesthesia Evaluation Post Anesthesia Evaluation Date of Service: 06/27/24 Vital Signs: Vital Signs Temp Pulse Resp BP Pulse Ox O2 Del Method O2 Flow Rate 06/27/24 04:00 97.8 F 82 17 107/58 L 100 Nasal Cannula 2 06/27/24 00:00 97.9 F 72 18 109/53 L 100 Nasal Cannula 2 Anesthesia: Monitored Mental Status: Awake Pain Control: Satisfactory Nausea/Vomiting: None Hydration: Adequate Anesthesia-Related Issues: No Anes. Related Issues
[2024-06-27 08:00] VITALS: BP 126/59; PULSE 82; RESP 17; TEMP 36.6; O2SAT 98
[2024-06-27] MEDS: Pantoprazole Sodium 40 MG/10 ML VIAL IVPUSH ×2 (08:56→17:03)
[2024-06-27] MEDS: 0.9 % Sodium Chloride Flush 3 ML SYRINGE IVFLUSH ×3 (08:57→21:09)
[2024-06-27] MEDS: Apixaban 5 MG TABLET PO ×2 (08:57→21:00)
[2024-06-27 12:00] VITALS: BP 106/52; PULSE 95; RESP 20; TEMP 36.5; O2SAT 99
[2024-06-27 12:04] LABS: Glucose, Whole Blood 154 mg/dL (60-115)
--- NOTE | 2024-06-27 12:07 | P.PNIM_ITS ---
Subjective Subjective Date of Service: 06/27/24 Interval History: Seen and evaluated this morning feels better Hb stable at 9.7, no bleeding went into Afib rvR, responded to Cardizem drip tolerating clears no other events Review of Systems Review of Systems: Yes all other systems are reviewed and are negative Physical Exam 2 Vital Signs: Vital Signs: Last Vital Signs Temp 97.9 F 06/27/24 08:00 Pulse 82 06/27/24 08:00 Resp 17 06/27/24 08:00 BP 126/59 L 06/27/24 08:00 Pulse Ox 98 06/27/24 08:00 O2 Del Method Nasal Cannula 06/27/24 08:00 O2 Flow Rate 2 06/27/24 08:00 Oxygen Flow Rate 2 06/25/24 12:56 BMI result Body Mass Index 21.8 Const: Other: Constitutional : Awake, interactive, not in distress Neck : Normal inspection, Supple Cardiovascular : RRR, no JVP, no lower extremity edema Respiratory : good bilateral air entry, no crackles, wheezes or rhonchi Gastrointestinal: soft, lax, Normal bowel sounds, generalized tenderness Skin : Warm, Dry Neurological : Alert & oriented x3, left sided hemiparesis Objective Data Active Medications Acetaminophen (Acetaminophen 325 Mg Tablet) 650 mg PO Q6H PRN PRN Reason: Pain, Mild 1-3,fever,headache Apixaban (Apixaban 5 Mg Tablet) 5 mg PO BID [facility] Last Admin: 06/27/24 08:57 Dose: 5 mg Documented By: RUIZ Calcium Carbonate (Calcium Carbonate 750 Mg Tab.Chew) 750 mg PO Q4H PRN PRN Reason: Heartburn Diltiazem HCl (Diltiazem Hcl 30 Mg Tablet) 15 mg PO QID [facility]; Protocol Fluticasone Propionate (Fluticasone Propionate Nasal 16 Gm [place]) 1 spray NOSTRIL-B BID [facility] Last Admin: 06/27/24 11:04 Dose: Not Given Documented By: RUIZ Non-Admin Reason: Med Not Available Glucagon (Glucagon Hcl 1 Mg Vial) 1 mg IVPUSH ONCE PRN PRN Reason: hypoglycemia Insulin Human Lispro (Insulin Lispro 100 Unit/Ml 3 Ml Vial) 0 unit SUBCUT QIDACHS [facility]; Protocol Last Admin: 06/27/24 07:43 Dose: Not Given Documented By: RUIZ Non-Admin Reason: No Insulin Coverage Magnesium Hydroxide (Milk Of Magnesia 30 Ml Oral.Susp) 30 ml PO DAILY PRN PRN Reason: Constipation Melatonin (Melatonin 3 Mg Tablet) 6 mg PO BEDTIME PRN PRN Reason: Insomnia Naloxone HCl (Naloxone Hcl 0.4 Mg/Ml Vial) 0.04 mg IVPUSH Q5M PRN PRN Reason: Excessive sedation or RR < 8 Ondansetron HCl (Ondansetron Hcl 4 Mg/2 Ml Vial) 4 mg IVPUSH Q8H PRN PRN Reason: Nausea and Vomiting Pantoprazole Sodium (Pantoprazole Sodium 40 Mg/10 Ml Vial) 40 mg IVPUSH BID@0630,1630 [facility] Last Admin: 06/27/24 08:56 Dose: 40 mg Documented By: RUIZ Polyethylene Glycol (Polyethylene Glycol 3350 17 Gm Powd.Pack) 17 gm PO DAILY [facility] Last Admin: 06/27/24 08:53 Dose: Not Given Documented By: RUIZ Non-Admin Reason: loose stools Senna (Sennosides 8.6 Mg Tablet) 8.8 mg PO BEDTIME [facility] Last Admin: 06/26/24 19:47 Dose: 8.8 mg Documented By: LINH Sodium Chloride (0.9 % Sodium Chloride Flush 3 Ml Syringe) 3 ml IVFLUSH QSHIFT [facility] Last Admin: 06/27/24 08:57 Dose: 3 ml Documented By: RUIZ Labs 06/27/24 06:45 06/27/24 06:45 Labs: Laboratory Results - last 24 hr 06/26/24 06/26/24 06/26/24 12:51 15:33 20:13 MCV 95.1 MCH 32.1 MCHC 33.8 RDW 15.1 Plt Count 196 MPV 9.9 Immature Gran % (Auto) Neut % (Auto) Lymph % (Auto) [place] % (Auto) Eos % (Auto) Baso % (Auto) Lymph # (Auto) [place] # (Auto) Eos # (Auto) Baso # (Auto) Abs Immat Gran (auto) Absolute Neuts (auto) Absolute Nucleated RBC 0.000 Nucleated RBC % (auto) 0.0 Anion Gap Estim Creat Clear Calc Estimated GFR POC Glucose 94 160 H Random Glucose Calcium Magnesium 06/27/24 06/27/2425 06:45 06:54 11:50 MCV 96.0 MCH 32.1 MCHC 33.4 RDW 15.0 Plt Count 203 MPV 9.8 Immature Gran % (Auto) 0.5 H Neut % (Auto) 67.6 Lymph % (Auto) 16.1 L [place] % (Auto) 7.3 Eos % (Auto) 7.8 H Baso % (Auto) 0.7 Lymph # (Auto) 1.4 [place] # (Auto) 0.6 Eos # (Auto) 0.7 H Baso # (Auto) 0.1 Abs Immat Gran (auto) 0.04 H Absolute Neuts (auto) 5.8 Absolute Nucleated RBC 0.000 Nucleated RBC % (auto) 0.0 Anion Gap 10 L Estim Creat Clear Calc 108.0 Estimated GFR > 60 POC Glucose 97 154 H Random Glucose 103 Calcium 8.1 L Magnesium 1.9 Microbiology Microbiology Results: Microbiology 06/24/24 09:12 Blood Culture - Preliminary Blood - Venous No growth after 48 hours. 06/24/24 09:12 Blood Culture - Preliminary Blood - Venous No growth after 48 hours. Assessment and Plan (1) Duodenal bulb ulcer: Status: Acute (2) Chronic anticoagulation: Status: Acute (3) Abnormal CT of the abdomen: Status: Acute (4) Atrial fibrillation with rapid ventricular response: Status: Acute (5) Hematochezia: Status: Acute (6) Hematemesis: Status: Acute Plan A 79 years old male with PMH of CVA with left sided hemiparesis, DM, HLD, and atrial fibrillation on Eliquis among others presenting to the hospital with 3 days of nausea, vomiting and diarrhea. 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, will need outpatient surgical evaluation Acute Lactic acidosis Secondary to hypoperfusion from blood loss responded to IV bolus Hypoglycemia in Type II DM not on insulin, hold Glipizide SSI Give Glucagon and D5LR Hx Afib Hold Eliquis HTN Hold Enalapril DVT PPx SCDs The patient will need overnight hospital stay for treatment of blood loss anemia and GI bleed, Afib w RvR pending close H&H monitoring and heart rate controlled Quality Stroke Does the patient have a stroke diagnosis?: No VTE Prior VTE?: No VTE Risk Level:: Medical - moderate - high VTE Device Contraindication: N/A - Device Ordered VTE Drug Contraindication: Treatment Not Indicated
[2024-06-27] MEDS: dilTIAZem HCL 30 MG TABLET 15 MG PO ×4 (12:10→20:59)
[2024-06-27] MEDS: Insulin Lispro 100 UNIT/ML 3 ML VIAL SUBCUT ×2 (12:10→21:30)
--- NOTE | 2024-06-27 15:59 | P.CDIM_ITS ---
PROVIDER RESPONSE TEXT: To clarify, the appropriate diagnosis supported by the clinical indicators: Yes, Acute blood loss anemia is due to Eliquis use QUERY TEXT: PHYSICIAN'S DOCUMENTATION REQUEST Date of Query: 06/27/2024 11:06 AM EDT Patient Name: Frederick Jaimes Admit Date: 06/24/2024 Dear Kristian Davis MD, A review of the medical record indicates additional documentation may be needed. Please review below and update the documentation accordingly. Clinical Indicators: acute blood loss anemia secondary to GI bleed in context of Norovirus infection and Eliquis use EGD showed duodenal ulcer that was clipped and injected with Epinephrine Based on the above, could you clarify if the anemia you are evaluating, treating, and/or monitoring i s due to Eliquis use Yes, Acute blood loss anemia is due to Eliquis use No, Acute blood loss anemia is due to Eliquis use (specify type) Other (explain) Clinically unable to determine (explain) Thank you, Elana Rogers RN Use of terms such as suspected, likely, concern for, or probable (associated with a specific diagnosi s that is being evaluated, monitored, or treated as if it exists) are acceptable and can be coded in the inpatient se tting, when documented at the time of discharge. Please use your independent medical judgment in providing your response. THIS QUERY IS PART OF THE PERMANENT MEDICAL RECORD
[2024-06-27 16:00] VITALS: BP 114/72; PULSE 100; RESP 20; TEMP 36.7; O2SAT 98
--- NOTE | 2024-06-27 16:38 | MHC.CM.PN ---
Per MD rounds no dc today. A PT eval has been ordered and is pending. DP pending PT eval. STR vs home BLS transport.
[2024-06-27 16:41] LABS: Glucose, Whole Blood 124 mg/dL (60-115)
[2024-06-27 20:00] VITALS: BP 114/56; PULSE 83; RESP 16; TEMP 36.9; O2SAT 99
[2024-06-27] MEDS: Sennosides 8.6 MG TABLET 8.8 MG PO (21:00)
[2024-06-27] MEDS: Fluticasone Propionate Nasal 16 GM SPRAY 1 SPRAY NOSTRIL-B (21:13)
[2024-06-27 21:17] LABS: Glucose, Whole Blood 197 mg/dL (60-115)
[2024-06-28] VITALS: BP 111/57; PULSE 76; RESP 18; TEMP 37; O2SAT 100
[2024-06-28 04:00] VITALS: BP 112/58; PULSE 97; RESP 18; TEMP 36.9; O2SAT 71
[2024-06-28] MEDS: Pantoprazole Sodium 40 MG/10 ML VIAL IVPUSH ×2 (05:59→16:58)
[2024-06-28 06:37] LABS: MANUAL DIFF FLAG NO
[2024-06-28 06:50] LABS: Basophils Absolute Auto 0.1 X10*3/uL (0.0-0.2); Basophils Percent Auto 0.7 % (0-2); Eosinophils Absolute Auto 0.8 X10*3/uL (0.0-0.4); Eosinophils Percent Auto 9.4 % (0-4); Hemoglobin 9.7 g/dl (14.0-18.0); Imm Gran Abs Auto 0.04 X10*3/uL (0.00-0.03); Imm Gran Pct Auto 0.4 % (0.0-0.4); Lymphocytes Absolute Auto 1.3 X10*3/uL (1.2-4.9); Lymphocytes Percent Auto 14.2 % (20-40); Mean Corpuscular HGB Conc 34.6 g/dl (31.0-36.0); Mean Corpuscular Hemoglobin 33.1 pg (27.0-33.0); Mean Corpuscular Volume 95.6 fL (80.0-98.0); Mean Platelet Volume 9.7 fL (9.4-12.4); Monocytes Absolute Auto 0.7 X10*3/uL (0.1-1.2); Monocytes Percent Auto 7.5 % (2-11); Neutrophils Absolute Auto 6.1 x10*3/uL (2.0-8.3); Neutrophils Percent Auto 67.8 % (45-73); Platelet Count 236 X10*3/uL (160-400); Red Blood Count 2.93 X10*6/uL (4.60-5.80); Red Cell Distribution Width 14.6 % (11.0-16.0); White Blood Count 8.9 X10*3/uL (4.8-10.8)
[2024-06-28 07:01] LABS: Anion Gap 9 (12-20); Blood Urea Nitrogen 13 mg/dL (9-16); Carbon Dioxide 23 mmol/L (22-29); Chloride 112 mmol/L (96-108); Estimated Glomerular Filt Rate > 60; Glucose Random 123 mg/dL (60-115); Potassium 3.1 mmol/L (3.3-5.1); Sodium 141 mmol/L (135-145)
[2024-06-28 07:40] LABS: Glucose, Whole Blood 116 mg/dL (60-115)
[2024-06-28 07:43] VITALS: BP 86/52; PULSE 85; RESP 18; TEMP 36.6; O2SAT 100
[2024-06-28] MEDS: polyethylene glycoL 3350 17 GM POWD.PACK PO (08:25)
[2024-06-28] MEDS: Potassium Chloride ER 20 MEQ TAB.ER.PRT PO (08:26)
[2024-06-28] MEDS: Apixaban 5 MG TABLET PO (08:26)
[2024-06-28] MEDS: 0.9 % Sodium Chloride 1,000 ML 999 ML IV (08:31)
[2024-06-28] MEDS: 0.9 % Sodium Chloride Flush 3 ML SYRINGE IVFLUSH ×2 (10:02→17:10)
--- NOTE | 2024-06-28 10:54 | MHC.CM.PN ---
Addendum entered by Patsy Patino RN 06/28/24 13:28: [facility] BOOKING ID#[id number] Original Note: PT MEDICALLY CLEARED FOR DC PENDING VOIDING TRIAL,[facility] DC AT 5M VIA [facility] FOR BLS TRANSPORT, CM MET W/PT VIA [employer] WHO IS AGREEABLE TO PLAN AND REQUESTED CM CONTACT PT'S DONNA HENNESSY, CM CONTACTED DONNA HENNESSY AT NUMBER ON FILE AND AWA AGREEABLE TO PLAN, PT WILL NEED [facility] AUTH
[2024-06-28 11:24] LABS: Glucose, Whole Blood 156 mg/dL (60-115)
[2024-06-28 12:00] VITALS: BP 113/58; PULSE 94; RESP 18; TEMP 36.9; O2SAT 98; O2SAT 99
--- NOTE | 2024-06-28 12:11 | P.DS_ITS ---
DS: Providers Provider Date of Service: 06/28/24 Date of admission: 06/24/24 12:57 Date of discharge: 06/28/24 Primary care physician: Amanda Cain MD Consults: 06/24/24 15:06 Consult to Gastroenterology Routine Consulting Provider: Yuni Noriega Reason for consultation: GI bleed , DS: Diagnosis Discharge Diagnosis (1) Duodenal bulb ulcer: Status: Acute (2) Chronic anticoagulation: Status: Acute (3) Abnormal CT of the abdomen: Status: Acute (4) Atrial fibrillation with rapid ventricular response: Status: Acute (5) Hematochezia: Status: Acute (6) Hematemesis: Status: Acute DS: Summary Hospital Course Hospital Course: Admission note HPI A 79 years old male with PMH of CVA with left sided hemiparesis, DM, HLD, and atrial fibrillation on Eliquis among others presenting to the hospital with 3 days of nausea, vomiting and diarrhea. The patient was evaluated on 06/20 in ED for constipation\pain. CT scan at that point only showed constipation. Stool panel came back positive for Norovirus. He went back home on Enema and bowel regimen but since then he got sick with worsening pain, nausea, vomiting and bloody stool. reported vomiting blood as well. In ED found to have drop in Hb from 13 to 9.9. Elevated K, BUN and Lactic acidosis. Started on IV Bolus, 1 unit blood transfusion, K-Centra and Vit K supplement with calcium gluconate. Admitted for further work up and management. Hospital course The patient was evaluated and treated Acute blood loss anemia secondary to GI Bleed in context of Norovirus infx and Eliquis use admitted to the hospital after receiving K-centra and Vit K along with 1 unit PRBCs with Hb improving and stablizing around 9.7 from baseline of 13. GI consulted and did an EGD showing evidence of duodenal ulcer and recommend ed IV Pantoprazole for 3 days then PO bid for 8 weeks. Eliquis restarted with no evidence of rebleed. The patient was able to tolerate regular diet and had regular bowel movements while on laxatives. To be discharged on Pantoprazole 40 mg bid for the next 8 weeks then once daily. To Send Miralax and Senna as well. Hold if develope diarrhea. He developed Paroxysmal Afib w RvR with rate controlled by Cardizem drip. PO Cardizem caused hypotension so he was switched to PO Metoprolol with fair control. restarted Eliquis. To discharge on Metoprolol 12.5 mg bid for now and follow as outpatient. For Acute hyperkalemia Lokelma given with good response. He was noted to have appindecal mucocele reported on CT scan, which will need outpatient surgical evaluation. He also was noted to have Acute Lactic acidosis on admission secondary to hypoperfusion from blood loss responded to IV bolus. Discharge plan Pantoprazole two times a day for the next 8 weeks then daily restart Eliquis Continue laxatives as prescribed. Stop if start to have diarrhea Discontinue Enalapril To start Metoprolol for heart rate control and blood pressure management Time Attestation Discharge Coordination Time (in mins): 46 Quality: Safe Use of Opioids Does Pt have an Active Cancer Diagnosis on the Problem List?: No Quality: Stroke Does the patient have a stroke diagnosis?: No Physical Exam Vital Signs: Vital Signs: Last Vital Signs Temp 97.9 F 06/28/24 07:43 Pulse 85 06/28/24 07:43 Resp 18 06/28/24 07:43 BP 86/52 L 06/28/24 07:43 Pulse Ox 100 06/28/24 07:43 O2 Del Method Nasal Cannula 06/28/24 07:43 O2 Flow Rate 2 06/28/24 07:43 Oxygen Flow Rate 2 06/27/24 12:00 BMI result Body Mass Index 21.8 Const: Other: Constitutional : Awake, interactive, not in distress Neck : Normal inspection, Supple Cardiovascular : RRR, no JVP, no lower extremity edema Respiratory : good bilateral air entry, no crackles, wheezes or rhonchi Gastrointestinal: soft, lax, Normal bowel sounds, generalized tenderness Skin : Warm, Dry Neurological : Alert & oriented x3, left sided hemiparesis DS: Data Data Completed and Pending Labs on day of discharge: Laboratory Results - last 24 hr 06/27/24 06/27/24 06/28/24 16:37 21:13 06:22 WBC 8.9 RBC 2.93 L Hgb 9.7 L Hct 28.0 L MCV 95.6 MCH 33.1 H MCHC 34.6 RDW 14.6 Plt Count 236 MPV 9.7 Immature Gran % (Auto) 0.4 Neut % (Auto) 67.8 Lymph % (Auto) 14.2 L [place] % (Auto) 7.5 Eos % (Auto) 9.4 H Baso % (Auto) 0.7 Lymph # (Auto) 1.3 [place] # (Auto) 0.7 Eos # (Auto) 0.8 H Baso # (Auto) 0.1 Abs Immat Gran (auto) 0.04 H Absolute Neuts (auto) 6.1 Absolute Nucleated RBC 0.000 Nucleated RBC % (auto) 0.0 Sodium 141 Potassium 3.1 L Chloride 112 H Carbon Dioxide 23 Anion Gap 9 L BUN 13 Creatinine 0.54 Estim Creat Clear Calc 108.0 Estimated GFR > 60 POC Glucose 124 H 197 H Random Glucose 123 H Calcium 8.0 L 06/28/24 06/28/24 07:31 11:09 WBC RBC Hgb Hct MCV MCH MCHC RDW Plt Count MPV Immature Gran % (Auto) Neut % (Auto) Lymph % (Auto) [place] % (Auto) Eos % (Auto) Baso % (Auto) Lymph # (Auto) [place] # (Auto) Eos # (Auto) Baso # (Auto) Abs Immat Gran (auto) Absolute Neuts (auto) Absolute Nucleated RBC Nucleated RBC % (auto) Sodium Potassium Chloride Carbon Dioxide Anion Gap BUN Creatinine Estim Creat Clear Calc Estimated GFR POC Glucose 116 H 156 H Random Glucose Calcium Preliminary micro results at discharge 06/24/24 09:12 Blood Culture - Preliminary Blood - Venous No growth after 48 hours. 06/24/24 09:12 Blood Culture - Preliminary Blood - Venous No growth after 48 hours. Imaging Chest x-ray: Radiologist's impression: ITS Impressions Abdomen/Pelvis CT 06/24/24 09:36 IMPRESSION: 1. Large amount of stool in the descending and sigmoid colon and a very large amount of stool in the rectum. 2. Dilated, fluid-filled appendix without inflammatory change. A mucocele is not excluded and colonoscopy is recommended. Electronically signed by: Lamont Amaya MD 06/24/2024 10:25 AM [facility] Discharge Plan Discharge Anticipated Discharge Date/Time: 06/28/24 11:51 Patient Disposition: Home Health Service Discharge Diagnosis: Norovirus infection Atrial fibrillaiton rapid Duodenal ulcer Referrals: Amanda Cain MD [Primary Care Provider] - 1 Week Discharge Medications: New sennosides [Senna Lax] 8.6 mg Tablet 8.8 mg PO BEDTIME Qty: 90 0RF polyethylene glycol 3350 17 gram Powder In Packet 17 g PO DAILY Qty: 100 0RF fluticasone propionate 50 mcg/actuation [place],Suspension 1 spray intranasal BID Qty: 16 0RF pantoprazole 40 mg tablet,delayed release (DR/EC) 40 mg PO BID Qty: 180 0RF Rx Instructions: BID for 8 weeks then Daily. metoprolol tartrate 25 mg tablet 12.5 mg PO BID Qty: 90 0RF Continued cetirizine 10 mg tablet 10 mg PO DAILY glipizide 5 mg tablet extended release 24hr 5 mg PO DAILY Eliquis 5 mg tablet 5 mg PO BID Discontinued enalapril maleate 2.5 mg tablet 2.5 mg PO DAILY Discharge Orders: Discharge Order (Routine); Ordered 06/28/24 Ordered By: Kristian Davis Diet: Advance to usual diet Activity on Discharge: As tolerated Stand Alone Forms: Patient Portal Discharge page Print Language: Mauritanian Care Plan Goals: Pantoprazole two times a day for the next 8 weeks then daily restart Eliquis Continue laxatives as prescribed. Stop if start to have diarrhea Discontinue Enalapril To start Metoprolol for heart rate control and blood pressure management Health Concerns: Gastrointestinal bleeding Duodenal ulcer Atrial fibrillation Plan of Treatment: Pantoprazole Metoprolol Assessment: as above
[2024-06-28] MEDS: Insulin Lispro 100 UNIT/ML 3 ML VIAL SUBCUT ×2 (12:41→16:57)
[2024-06-28] MEDS: Metoprolol Tartrate 12.5 MG HALFTAB PO (12:41)
--- NOTE | 2024-06-28 14:15 | P.CDIM_ITS ---
PROVIDER RESPONSE TEXT: To clarify, the appropriate diagnosis supported by the clinical indicators: Acute QUERY TEXT: PHYSICIAN'S DOCUMENTATION REQUEST Date of Query: 06/28/2024 08:04 AM EDT Patient Name: Frederick Jaimes Admit Date: 06/24/2024 Dear Kristian Davis MD, A review of the medical record indicates additional documentation may be needed. Please review below and update the documentation accordingly. Clinical Indicators: EGD: duodenal ulcer x3 endoclips placed for hemostasis. 2 aliquots of 1 cc epinephrine injected around the edges. Clarify which of the following accurately represents the acuity of the Duodenal ulcer. Possible options might include: Acute Acute on chronic Compensated Chronic stable condition Remission Other (explain) Clinically unable to determine (explain) Thank you, Elana Rogers RN Use of terms such as suspected, likely, concern for, or probable (associated with a specific diagnosi s that is being evaluated, monitored, or treated as if it exists) are acceptable and can be coded in the inpatient se tting, when documented at the time of discharge. Please use your independent medical judgment in providing your response. THIS QUERY IS PART OF THE PERMANENT MEDICAL RECORD
[2024-06-28 16:00] VITALS: BP 123/62; PULSE 76; RESP 14; TEMP 36.8; O2SAT 98
[2024-06-28 16:47] LABS: Glucose, Whole Blood 180 mg/dL (60-115)
== END 2024-06-28 17:56 | disposition home health service (06) | DRG 378 ==
LOC: HO.ED 10:32 → HO.EDOVER 13:03 → HO.IMC 17:15
PROVIDERS: Internal Medicine; Physician Assistant Medical; Admitting Provider Student in an Organized Health Care Education/Training Program; Emergency Provider Emergency Medicine; PCP Internal Medicine; Visit Provider Student in an Organized Health Care Education/Training Program
PROC: 0DJ08ZZ Inspection of Upper Intestinal Tract, Via Natural or Artificial Opening Endoscopic (ICD-10-PCS; CPT 43235; principal; 2024-06-25 10:30)
PROC: 0DJD8ZZ Inspection of Lower Intestinal Tract, Via Natural or Artificial Opening Endoscopic (ICD-10-PCS; CPT 45330; 2024-06-25 10:30)
DX: K26.0 Acute duodenal ulcer with hemorrhage (principal); A08.11 Acute gastroenteropathy due to Norwalk agent; D62 Acute posthemorrhagic anemia; I69.354 Hemiplegia and hemiparesis following cerebral infarction affecting left non-dominant side; D68.32 Hemorrhagic disorder due to extrinsic circulating anticoagulants; E87.21 Acute metabolic acidosis; I48.0 Paroxysmal atrial fibrillation; E11.65 Type 2 diabetes mellitus with hyperglycemia; I95.2 Hypotension due to drugs; T46.1X5A Adverse effect of calcium-channel blockers, initial encounter; E87.5 Hyperkalemia; I10 Essential (primary) hypertension; E11.649 Type 2 diabetes mellitus with hypoglycemia without coma; K38.8 Other specified diseases of appendix; T45.515A Adverse effect of anticoagulants, initial encounter; Z20.822 Contact with and (suspected) exposure to COVID-19; Z79.51 Long term (current) use of inhaled steroids; Z79.84 Long term (current) use of oral hypoglycemic drugs; Z79.899 Other long term (current) drug therapy
CPT/HCPCS: 0241U; 36415; 71045; 74177; 80048; 80053; 81003; 82272; 82947; 83605; 83735; 85025; 85027; 85610; 86850; 86900; 86901; 86920; 86923; 87040; 93005; 99285; J0171; J0613; J1610; J2003; J2470; J2543; J2704; J3430; J7120; J7168; P9016; Q9967

== ENCOUNTER → 2024-06-24 08:52 | Outpatient (BNV) | payer OTHER, SELFPAY | PROVIDERS: Admitting Provider Student in an Organized Health Care Education/Training Program; Emergency Provider Emergency Medicine; PCP Internal Medicine; Visit Provider Internal Medicine Cardiovascular Disease | DX: R00.0 Tachycardia, unspecified (principal) | CPT/HCPCS: 93010 ==

== ENCOUNTER → 2024-06-24 09:05 | Outpatient (BNV) | payer OTHER, SELFPAY | PROVIDERS: Emergency Provider Emergency Medicine; PCP Internal Medicine; Visit Provider Radiology Diagnostic Radiology | DX: R06.02 Shortness of breath (principal); R14.0 Abdominal distension (gaseous); R11.2 Nausea with vomiting, unspecified | CPT/HCPCS: 71045; 74177 ==

== ENCOUNTER 2024-06-24 12:57 | Outpatient (BNV) | payer OTHER, SELFPAY | END 2024-06-26 15:24 | PROVIDERS: Admitting Provider Student in an Organized Health Care Education/Training Program; Emergency Provider Emergency Medicine; PCP Internal Medicine; Visit Provider Internal Medicine | DX: I48.91 Unspecified atrial fibrillation (principal) | CPT/HCPCS: 93010 ==

== ENCOUNTER → 2024-06-24 12:57 | Outpatient (BNV) | payer OTHER, SELFPAY | PROVIDERS: Admitting Provider Student in an Organized Health Care Education/Training Program; Emergency Provider Emergency Medicine; PCP Internal Medicine; Visit Provider Student in an Organized Health Care Education/Training Program | DX: K26.9 Duodenal ulcer, unspecified as acute or chronic, without hemorrhage or perforation (principal); Z79.01 Long term (current) use of anticoagulants; I48.91 Unspecified atrial fibrillation; K92.1 Melena; K92.0 Hematemesis | CPT/HCPCS: 99223; 99232 ==

== ENCOUNTER → 2024-06-24 12:57 | Outpatient (BNV) | payer OTHER, SELFPAY | PROVIDERS: Admitting Provider Student in an Organized Health Care Education/Training Program; Emergency Provider Emergency Medicine; PCP Internal Medicine; Visit Provider Internal Medicine | DX: R10.9 Unspecified abdominal pain (principal); K92.0 Hematemesis; K29.80 Duodenitis without bleeding; K62.5 Hemorrhage of anus and rectum; Z91.199 Patient's noncompliance with other medical treatment and regimen due to unspecified reason | CPT/HCPCS: 43255; 45330; 99223 ==

== ENCOUNTER 2024-12-17 15:57 | Inpatient (IN) | payer OTHER, SELFPAY ==
--- NOTE | ~2024-12-17 | MR_ITS ---
CLINICAL HISTORY: rule out OM MR leftfoot with and without gadolinium Comparison: CR - XR FOOT LT MIN 3V - 12/17/24 16:31 EDT Findings: T1 hypoenhancement with associated enhancement in the 2nd and 3rd from proximal phalanges concerning for osteomyelitis. No acute fractures. No effusion. Visualized flexor, extensor, and peroneal tendons are intact. Intact visualized plantar fascia. IMPRESSION: Osteomyelitis of the 2nd and 3rd proximal phalanges. This document has been electronically signed by: Arelis Hurley MD on 12/18/2024 17:26:05
--- NOTE | ~2024-12-17 | XR_ITS ---
CLINICAL HISTORY: picc line 1 view chest x-ray Comparison: CR/NC - XR CHEST 1V - 06/24/24 20:02 EST Findings: The lungs are clear. No effusion or pneumothorax. There is a PICC with tip at the right atrium. No acute fracture. IMPRESSION: PICC with tip at the cavoatrial junction. This document has been electronically signed by: Dmitri Silva MD on 12/21/2024 19:45:15
--- NOTE | ~2024-12-17 | US_ITS ---
CLINICAL HISTORY: rule out stenosis Arterial duplex ultrasound left lower extremity Comparison: None provided Findings: Velocities are within normal limits. Diffuse atherosclerotic disease present. Biphasic and triphasic waveforms are present with the exception of the posterior tibial artery which is monophasic. Impression: Monophasic flow within the posterior tibial artery. Diffuse atherosclerotic disease. This document has been electronically signed by: Karan Mckenzie MD on 12/18/2024 12:04:07
--- NOTE | ~2024-12-17 | XR_ITS ---
CLINICAL HISTORY: osteo rule out 4 view left foot Comparison: None provided Findings: The bones are diffusely sclerotic. There is destruction of the 2nd digit proximal interphalangeal joint. No articular surface remains and there is bony erosion of the distal end of the proximal phalanx. There are hammertoe deformities of the 2nd through 5th digits. There is severe joint space narrowing of the 1st digit interphalangeal joint. No ankle effusion. No radiopaque foreign body. Calcified arterial vasculature. IMPRESSION: 1. Destruction of the 2nd digit proximal interphalangeal joint concerning for osteomyelitis. 2. 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 This document has been electronically signed by: Dmitri Silva MD on 12/17/2024 17:16:55
[2024-12-17 16:03] VITALS: BP 136/72; PULSE 84; O2SAT 97
[2024-12-17 16:06] VITALS: BP 128/69; PULSE 83; RESP 16; TEMP 36.6; O2SAT 99; BMI 23.2
--- NOTE | 2024-12-17 16:20 | ED.GENADULT ---
HPI - General Adult General Chief complaint: Wound/Laceration Stated complaint: L foot wound x2 weeks, appears infected Time Seen by Provider: 12/17/24 16:01 Source: patient Mode of arrival: ambulatory Limitations: language barrier History of Present Illness ED Provider: Dr. Hsieh [facility] narrative: 79 yo m year old male history of stroke with left-sided residual deficit presenting to ER today for evaluation of redness in his left foot. Patient was getting a bath with his son when he scraped the top part of his left 2nd toe. He sustained a wound to that toe. His has been putting some hydrogen peroxide with the wound. However noted that his foot has been more swollen and red. Patient denies any fever. Denies any pain anywhere else. Related Data Home Medications ?Medication ?Instructions ?Recorded ?Confirmed apixaban 5 mg tablet (Eliquis) 5 mg PO BID 06/24/24 06/24/24 cetirizine 10 mg tablet 10 mg PO DAILY 06/24/24 06/24/24 glipizide 5 mg tablet, extended 5 mg PO DAILY 06/24/24 06/24/24 release 24 hr Previous Rx's ?Medication ?Instructions ?Recorded fluticasone propionate 50 1 spray intranasal BID #16 grams 06/28/24 mcg/actuation nasal spray,suspension metoprolol tartrate 25 mg tablet 12.5 mg (1/2 x 25 mg) PO BID #90 06/28/24 tabs pantoprazole 40 mg tablet,delayed 40 mg PO BID #180 tabs 06/28/24 release polyethylene glycol 3350 17 gram 17 g PO DAILY #100 ea 06/28/24 oral powder packet sennosides 8.6 mg tablet (Senna 8.8 mg (1.0233 x 8.6 mg) PO 06/28/24 Lax) BEDTIME #90 tabs Allergies Allergy/AdvReac Type Severity Reaction Status Date / Time No Known Allergies (No Known Allergy Verified 12/17/24 16:12 Allergies*) Review of Systems Review of Systems: Pertinent review of systems as mentioned in [facility]. All other system otherwise negative. [facility] Past Medical History [facility] Narrative: Medical history as mentioned in [facility] Medical History CVA (cerebral vascular accident) Hyperlipidemia Diabetes Social History Social History Household Members: Spouse Housing: Condominium Do you presently have visiting nurse or other home services: Yes (pt. unsure.) Alcohol intake: never Patient Tobacco Use Status: Never used Tobacco Advance Directives: No Advance Directives Information Provided: No service: No Physical Exam ED Exam Exam: General: Pleasant, no distress, interacting appropriately Head: Normacephalic, atraumatic ENT: oral mucosa moist, neck supple, no tracheal deviation Cardiovascular: regular rate, regular rhythm, no murmurs, rubbing, gallops Respiratory: CTAB, no wheeze, rales, rhonchi Extremities: Patient has a wound on the left 2nd toe, there is erythema over the left foot. left foot otherwise pulses intact. Neurological: Awake and alert, contracted left upper and lower extremity appreciate on exam Skin: Warm and dry Psychiatric: Appropriate mood and thoughts Vital Signs: Vital Signs - 24 hr 12/17/24 16:06 Temperature 97.9 F Pulse Rate 83 Respiratory Rate 16 Blood Pressure 128/69 Pulse Oximetry 99 Oxygen Delivery Method Room Air BMI result Body Mass Index 23.2 Medical Decision Making Medical Decision Making [facility] Narrative: This is a 79-year-old male history of diabetes and stroke with residual left-sided deficit presented hospital today for evaluation of left foot erythema. I suspect this is cellulitic in nature due to the foot wound. It does appear to be warm and red. We will plan to give patient a dose of p.o. doxycycline and p.o. ciprofloxacin here. We will obtain lab work to screen for any signs of sepsis. However patient appears to be well does not appear to be toxic on my exam. Left foot x-ray will be obtained to assess for any signs of osteomyelitis. Patient's lab work did not show any signs of leukocytosis, no sign of elevated lactic acid. However his x-ray did show osteomyelitis of the left 2nd toe. We will plan to admit patient into the hospital for IV antibiotics. I did start IV vancomycin and Zosyn for the patient. We will plan to hold the p.o. doxycycline and ciprofloxacin. Differential Diagnosis Differential Diagnoses: The differential diagnosis associated with the presentation includes Cellulitis, abscess, diabetic foot wound, osteomyelitis, sepsis Consult Healthcare Provider Management of the patient was discussed with: Hospitalist Lab Data [facility] Lab Attestation statement: I reviewed the patient's lab results. 12/17/24 16:26 12/17/24 16:26 Labs: Lab Results 12/17/24 Range/Units 16:26 WBC 6.9 (4.8-10.8) X10*3/uL RBC 3.73 L D (4.60-5.80) X10*6/uL Hgb 12.4 L D (14.0-18.0) g/dl Hct 35.9 L D (42.0-52.0) % MCV 96.2 (80.0-98.0) fL MCH 33.2 H (27.0-33.0) pg MCHC 34.5 (31.0-36.0) g/dl RDW 13.7 (11.0-16.0) % Plt Count 279 (160-400) X10*3/uL MPV 10.0 (9.4-12.4) fL Immature Gran % (Auto) 0.3 (0.0-0.4) % Neut % (Auto) 53.9 (45-73) % Lymph % (Auto) 21.5 (20-40) % [place] % (Auto) 7.2 (2-11) % Eos % (Auto) 15.8 H (0-4) % Baso % (Auto) 1.3 (0-2) % Lymph # (Auto) 1.5 (1.2-4.9) X10*3/uL [place] # (Auto) 0.5 (0.1-1.2) X10*3/uL Eos # (Auto) 1.1 H (0.0-0.4) X10*3/uL Baso # (Auto) 0.1 (0.0-0.2) X10*3/uL Abs Immat Gran (auto) 0.02 (0.00-0.03) X10*3/uL Absolute Neuts (auto) 3.7 (2.0-8.3) x10*3/uL Absolute Nucleated RBC 0.000 (0.0-0.012) X10*3/uL Nucleated RBC % (auto) 0.0 (0.0-0.2) /100WBC PT 15.4 H (10.9-12.4) SEC INR 1.3 H (0.9-1.1) Sodium 140 (135-145) mmol/L Potassium 4.6 D (3.3-5.1) mmol/L Chloride 106 (96-108) mmol/L Carbon Dioxide 25 (22-29) mmol/L Anion Gap 14 (12-20) BUN 16 (9-16) mg/dL Creatinine 0.60 (0.5-1.4) mg/dL Estim Creat Clear Calc 86.8 Estimated GFR > 60 Random Glucose 179 H (60-115) mg/dL Lactic Acid 2.0 (0.5-2.0) mmol/L Calcium 8.8 D (8.4-10.2) mg/dL Independent Interpretation I performed an independent interpretation of an: Plain X-Ray Radiology Impression Discussion of test interpretation with radiology: I have reviewed the radiologist's reading. Chronic Conditions Patient?s care impacted by: Diabetes CVA Discharge Plan Discharge Clinical Impression: Osteomyelitis Qualifiers: Osteomyelitis type: unspecified type Osteomyelitis location: foot Laterality: left Qualified Code(s): M86.9 - Osteomyelitis, unspecified Patient Disposition: Admitted As Inpatient Print Language: Malian
--- OUTSIDE RECORDS SUMMARY | 2024-12-17 16:29 | XMS_ITS | Clinical Summary ---
Author Organization [facility] Address [address] [place] [phone] Phone Care Team Providers Care Cattle Shipper Name Role Phone Amanda Cain MD Primary Care Provider [phone] Allergies No known active allergies Medications fluticasone propionate (FLONASE) 50 mcg/actuation nasal spray Administer 2 sprays into each nostril 2 (two) times a day. 02/16/20 24 Active fluticasone-sa lmeterol (ADVAIR DISKUS) 250-50 mcg/dose diskus inhaler Inhale 1 puff by mouth 2 (two) times a day. 02/16/20 24 Active cetirizine (ZyrTEC) 10 mg tablet TAKE ONE TABLET BY MOUTH EVERY DAY ^1R4 30 tablet 05/24/19 25 Active omeprazole (PriLOSEC) [address] capsule TAKE ONE CAPSULE BY MOUTH EVERY DAY BEFORE BREAKFAST^1R4 30 capsule 5 07/28/19 25 Active metoprolol tartrate (LOPRESSOR) 25 mg tablet Take 1 tablet (25 mg total) by mouth 2 (two) times a day. 180 each 1 09/02/19 25 025 Active Eliquis 5 mg tablet TAKE ONE TABLET BY MOUTH EVERY 12 HOURS ^1R1,1R4 60 tablet 5 09/15/19 25 Active FreeStyle Lancets 28 gauge lancets USE ONE EVERY MORNING BEFORE BREAKFAST (BULK) 100 each 1 12/14/19 25 Active blood sugar diagnostic (FreeStyle Lite Strips) test strip USE ONCE DAILY BEFORE BREAKFAST (BULK) 100 strip 1 12/14/19 25 Active glipiZIDE (GLUCOTROL XL) 5 mg 24 hr tablet TAKE ONE TABLET BY MOUTH EVERY DAY ^1R4 30 tablet 5 12/15/19 25 Active mometasone (ELOCON) 0.1 % cream APPLY TOPICALLY AT BEDTIME NEEDED (ECZEMA) (BULK) 15 g 1 12/14/19 25 Active atorvastatin (LIPITOR) 40 mg tablet Take by mouth at bedtime. 04/21/19 24 025 Discontinued glipiZIDE (GLUCOTROL XL) 5 mg 24 hr tablet Take 1 tablet (5 mg total) by mouth 1 (one) time each day. 90 tablet 1 07/20/19 25 025 Discontinued mometasone (ELOCON) 0.1 % cream Apply topically at bedtime as needed (eczema). 15 g 11/19/19 25 025 Discontinued freestyle (FreeStyle Lancets) 28 gauge lancets by Other route 1 (one) time each day before breakfast. 100 each 11/16/19 25 025 Discontinued blood sugar diagnostic (FreeStyle Lite Strips) test strip 1 each by Other route 1 (one) time each day before breakfast. 100 strip 11/16/19 25 025 Discontinued Active Problems Problem Noted Date Diagnosed Date Cognitive impairment 07/19/2024 Assessment & Plan (07/19/2024 12:02 PM EDT): Orders: Ambulatory referral to Neurology; Future Diabetic neuropathy ([facility] V24, [facility] V28) 1 05/16/2023 History of pulmonary embolism 03/16/2024 Bilateral carotid artery stenosis 01/27/2023 Diverticulosis, sigmoid 03/12/2021 Overview (03/16/2024): CN 03/07/21 Hammer toes of both feet 01/01/2021 Mild persistent asthma without complication 09/19 Onychomycosis 04/07/2015 Type II diabetes mellitus wi th neurological manifestations ([facility] V24, [facility] V28) 02/27/2015 Overview (03/16/2024): Podiatry note 07/31/2014 Dr. Merida Assessment & Plan (07/19/2024 12:02 PM EDT): Orders: Comprehensive metabolic panel; Future Hemoglobin A1c; Future Lipid panel with reflex to direct LDL; Future Microalbumin creatinine urine ratio; Future Urinary incontinence 03/14/2014 Atrial fibrillation ([facility] V24, [facility] V28) 0 12/08/2013 Overview (03/16/2024): Diagnosed 10/31 during hospitalisation. Echo showed impaired diastolic relaxation with normal LV function. 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 ([facility] V24, [facility] V28) 11/02/2013 Assessment & Plan (07/19/2024 12:02 PM EDT): Resolved Problems Problem Noted Date Diagnosed Date Resolved Date Diabetic foot ulcer ([facility] V24, [facility] V28) 01/01/2021 11/29/2024 Encounters Date Type Department Care Team Description 11/29/2024 11:00 AM EDT Office Visit Adult Medicine [address] [phone] Amanda Cain MD Type II diabetes mellitus with neurological manifestations ([facility] V24, [facility] V28) (Primary Dx); Mild persistent asthma without complication; Primary hypertension; Hemiparesis affecting left side as late effect of cerebrovascular accident ([facility] V24, [facility] V28); Chronic atrial fibrillation ([facility]/H[facility] V24, [facility] V28); Cognitive impairment; Anemia, unspecified type; Epistaxis, recurrent from Last 3 Months Immunizations Name Administration [...] Comments COPD (chronic obstructive pu lmonary disease) ([facility] V24, [facility] V28) 02/28/2014 Type II diabetes mellitus wi th neurological manifestations ([facility] V24, [facility] V28) 02/27/2015 Pulmonary embolism ([facility] V24, [facility] V28) 11/02/2013 Diagnosed here in [facility] , on Coumadin HTN (hypertension) 11/02/2013 Hemiparesis affecting left s cedric as late effect of cerebrovascular accident ([facility] V24, [facility] V28) 11/02/2013 Atrial fibrillation ([facility] V24, [facility] V28) 12/08/2013 Diagnosed 10/31 during hospitalisation. Echo showed impaired diastolic relaxation with normal LV function. Asthma 11/02/2013 Diabetic neuropathy ([facility] V24, [facility] V28) Onychomycosis 04/07/2015 Diverticulosis, sigmoid 03/12/2021 CN 03/07 [...] Sign Reading Time Taken Comments Blood Pressure 116/68 11/29/2024 11:34 AM EDT Pulse 76 11/29/2024 11:34 AM EDT Temperature 36.3 C (97.4 F) 11/29/2024 11:34 AM EDT Respiratory Rate 14 11/29/2024 11:34 AM EDT Oxygen Saturation 98% 11/29/2024 11:34 AM EDT Inhaled Oxygen Concentration - - Weight 68 kg (150 lb) 11/29/2024 11:34 AM EDT Height 177.8 cm (5' 10 ) 11/29/2024 11:34 AM EDT Body Mass Index 21.52 11/29/2024 11:34 AM EDT Plan of Treatment Upcoming Encounters Date Type Department Care Team (Late st Contact Info) Description 02/16/2025 10:00 AM EDT Office Visit Orthopedic Surgery - [place] [address] [phone] Tommie Arzola, DPM [address] [address] 03/31/2025 11:30 AM EST Office Visit Adult Medicine [facility] [address] [place], [place] [phone] Lary Norton PA [address] [place] [phone] Health Maintenance Due Date Last Done Comments DTaP,Tdap,and Td Vaccines (1 - Tdap) 01/16/1964 Zoster Vaccines (1 of 2) 1995 Diabetes: Annual Retina Eye Exam 09/18/2017 09/18/2016, 10/09/2015 RSV Immunization Adult Patients (1 - 1-dose 75+ series) 01/16/2020 Colorectal Cancer Screening: Colonoscopy 03/29/2022 Social Influencers of Health Screening 03/29/2022 COVID-19 Vaccine ( season) 2023 Influenza Vaccine (#1) 2024 Diabetes: Blood Sugar Control Test (HGBA1C) 06/01/2025 11/29/2024, 07/19/2024, 12/07/2023, Additional history exists Diabetes: Annual Urine Albumin-Creatinine Ratio (uACR) 07/19/2025 07/19/2024, 08/14/2022, 08/14/2022, Additional history exists Diabetes: Annual GFR (Glomerular Filtration Rate) 07/19/2025 07/19/2024, 12/07/2023, 12/07/2023 Falls Risk Assessment 07/19/2025 07/19/2024, 02/20/ 022 Hypertension/CHF/CAD Annual BMP Blood Test 07/19/2025 07/19/2024, 12/07/2023, 12/07/2023 Medicare Annual Wellness Visit 07/19/2025 07/19/2024 Diabetes: Annual Foot Exam 09/07/202509/07, 01/12/2024, 01/12/2024, Additional history exists Cholesterol Screening (Lipid Panel) 07/19/2029 07/19/2024, 04/29/2023, 04/29/2023, Additional history exists Hepatitis C Screening Completed 12/02/2013, 014 Pneumococcal Vaccine: 50+ Years Completed 09/04/2016, 06/27/2015 Depression Screening Completed 07/19/2024, 12/07/19 24 HIB Vaccines Aged Out No longer eligi [...] age to complete this topic Meningococcal B Vaccine Aged Out No l onger eligible based on patient's age to complete this topic RSV Immunization Patients Under 20 months Aged Out No longer eligible based on patient's age to complete this topic Varicella Vaccines Aged Out No longer eligible based on patient's age to complete this topic Procedures Procedure Name Priority Date/Time Associated Diagnosis Comments CBC WITH AUTO DIFFERENTIAL Routine 11/29/2024 11:48 AM EDT Anemia, unspecified type VITAMIN B12 Routine 11/29/2024 11:48 AM EDT Anemia, unspecified type FOLATE Routine 11/29/2024 11:48 AM EDT Anemia, unspecified type CBC AND DIFFERENTIAL Routine 11/29/2024 11:48 AM EDT Anemia, unspecified type HEMOGLOBIN A1C Routine 11/29/2024 11:48 AM EDT Type II diabetes mellitus with neurological manifestations (CMS/HCC V24, CMS/HCC V28) MICROALBUMIN CREATININE URINE RATIO Routine 07/19/2024 1:54 PM EDT Type II diabetes mellitus with neurological manifestations (CMS/HCC V24, CMS/HCC V28) COMPREHENSIVE METABOLIC PANEL Routine 07/19/2024 12:12 PM EDT Type II diabetes mellitus with neurological manifestations (CMS/HCC V24, CMS/HCC V28) LIPID PANEL WITH REFLEX TO DIRECT LDL Routine 07/19/2024 12:12 PM EDT Type II diabetes mellitus with neurological manifestations (CMS/HCC V24, CMS/HCC V28) DIABETES FOOT EXAM Routine 01/12/2024 DEPRESSION SCREENING Routine 12/07/2023 HEPATITIS C SCREENING Routine 12/02/2013 from Last 3 Months or Most Recently Relevant to Health Maintenance Results * (ABNORMAL) CBC auto differential (11/29/2024 11:48 AM EDT) WBC 7.5 4.8 - 10.8 K/mcL LAB HEMETOLOGY METHOD 11/29/2024 2:13 PM EDT [facility] RBC 3.60(L) 4.50 - 5.50 M/mcL LAB HEMETOLOGY METHOD 11/29/2024 2:13 PM EDT [facility] Hemoglobin 11.2(L) 13.5 - 17.5 g/dL LAB HEMETOLOGY METHOD 11/29/2024 2:13 PM [facility] Hematocrit 36.2(L) 42.0 - 54.0 % LAB HEMETOLOGY METHOD 11/29/2024 2:13 PM [facility] MCV 101.1(H) 79.0 - 98.0 FL LAB HEMETOLOGY METHOD 11/29/2024 2:13 PM [facility] MCH 31.3 27.0 - 32.0 pcg LAB HEMETOLOGY METHOD 11/29/2024 2:13 PM [facility] MCHC 30.9(L) 32.0 - 37.0 g/dL LAB HEMETOLOGY METHOD 11/29/2024 2:13 PM [facility] RDW 14.0 11.0 - 15.0 % LAB HEMETOLOGY METHOD 11/29/2024 2:13 PM [facility] Platelets 264 130 - 400 K/mcL LAB HEMETOLOGY METHOD 11/29/2024 2:13 PM [facility] MPV 10.6 7.0 - 11.0 FL LAB HEMETOLOGY METHOD 11/29/2024 2:13 PM [facility] NRBC 0.0 <1.0 % LAB HEMETOLOGY METHOD 11/29/2024 2:13 PM [facility] NRBC Absolute 0.00 <0.10 K/mcL LAB HEMETOLOGY METHOD 11/29/2024 2:13 PM [facility] Neutrophils Relative 57.5 % LAB HEMETOLOGY METHOD 11/29/2024 2:13 PM [facility] Lymphocytes Relative 20.4 % LAB HEMETOLOGY METHOD 11/29/2024 2:13 PM [facility] Monocytes Relative 6.4 % LAB HEMETOLOGY METHOD 11/29/2024 2:13 PM [facility] Eosinophils Relative 14.3 % LAB HEMETOLOGY METHOD 11/29/2024 2:13 PM [facility] Basophils Relative 1.1 % LAB HEMETOLOGY METHOD 11/29/2024 2:13 PM [facility] Immature Granulocytes Relative 0.3 % LAB HEMETOLOGY METHOD 11/29/2024 2:13 PM EDT [facility] Neutrophils Absolute 4.31 1.50 - 7.00 K/mcL LAB HEMETOLOGY METHOD 11/29/2024 2:13 PM EDT [facility] Lymphocytes Absolute 1.53 1.00 - 5.00 K/mcL LAB HEMETOLOGY METHOD 11/29/2024 2:13 PM EDT [facility] Monocytes Absolute 0.48 0.20 - 1.00 K/mcL LAB HEMETOLOGY METHOD 11/29/2024 2:13 PM EDT [facility] Eosinophils Absolute 1.07(H) 0.00 - 0.50 K/mcL LAB HEMETOLOGY METHOD 11/29/2024 2:13 PM EDT [facility] Basophils Absolute 0.08 0.00 - 0.20 K/mcL LAB HEMETOLOGY METHOD 11/29/2024 2:13 PM EDT [facility] Immature Granulocytes Absolute 0.02 0.00 - 0.03 K/mcL LAB HEMETOLOGY METHOD 11/29/2024 2:13 PM EDT [facility] Blood Venous blood specimen / Unknown Venipuncture / Unknown 11/29/2024 11:48 AM EDT 11/29/2024 11:48 AM EDT us Amanda Cain MD LAB BLOOD ORDERABLES Final Resul t [facility] [address] [place] [address], * Hemoglobin A1c (11/29/2024 11:48 AM EDT) Hemoglobin A1C 6.0 <6.5 % LAB CHEMISTRY METHOD 11/29/2024 6:21 PM EDT [facility] Mean Bld Glu Estim. 126 mg/dL LAB CHEMISTRY METHOD 11/29/2024 6:21 PM EDT [facility] Blood Venous blood specimen / Unknown Venipuncture / Unknown 11/29/2024 11:48 AM EDT 11/29/2024 11:48 AM EDT us Amanda Cain MD LAB BLOOD ORDERABLES Final Resul t Performing Organization Address City/[facility]/ZIP Co de Phone Number [facility] [address] [place] [address], [place] [phone] * Folate (11/29/2024 11:48 AM EDT) Folate 8.5 2.8 - 17.0 ng/ml LAB CHEMISTRY METHOD 11/29/2024 3:33 PM EDT [facility] Blood Venous blood specimen / Unknown Venipuncture / Unknown 11/29/2024 11:48 AM EDT 11/29/2024 11:48 AM EDT us Amanda Cain MD LAB BLOOD ORDERABLES Final Resul t Performing Organization Address [facility]/ZIP Co de Phone Number [facility] [address] [place] [address], [place] [phone] * Vitamin B12 (11/29/2024 11:48 AM EDT) Vitamin B-12 286 250 - 900 pcg/mL LAB CHEMISTRY METHOD 11/29/2024 3:33 PM EDT [facility] Blood Venous blood specimen / Unknown Venipuncture / Unknown 11/29/2024 11:48 AM EDT 11/29/2024 11:48 AM EDT us Amanda Cain MD LAB BLOOD ORDERABLES Final Resul t Performing Organization Address City/[facility]/ZIP Co de Phone Number [facility] [address] [place] [address], [place] [phone] * Microalbumin creatinine urine ratio (07/19/2024 1:54 PM EDT) Creatinine, Urine 90.0 mg/dL LAB CHEMISTRY METHOD 07/19/2024 8:06 PM EDT [facility] Microalb, Ur 5.2 0.0 - 29.0 mg/L LAB CHEMISTRY METHOD 07/19/2024 8:06 PM EDT [facility] Microalb/Creat Ratio 6 <30 mg/g creat LAB CHEMISTRY METHOD 07/19/2024 8:06 PM EDT [facility] Urine Urine specimen obtained by clean catch procedure / Unknown Non-blood Collection / Unknown 07/19/2024 1:54 PM EDT 07/19/2024 1:54 PM EDT us Amnada Cain MD LAB URINE ORDERABLES Final Resul t [facility] [address] [place] [address], [place] [phone] * (ABNORMAL) Lipid panel with reflex to direct LDL (07/19/2024 12:12 PM EDT) [facility] Cholesterol 132 0 - 200 mg/dL LAB CHEMISTRY METHOD 07/19/2024 4:56 PM EDT [facility] Triglycerides 92 0 - 150 mg/dL LAB CHEMISTRY METHOD 07/19/2024 4:56 PM EDT [facility] HDL 37(L) >=40 mg/dL LAB CHEMISTRY METHOD 07/19/2024 4:56 PM EDT [facility] LDL Calculated 77 0 - 100 mg/dL LAB CHEMISTRY METHOD 07/19/2024 4:56 PM T [facility] VLDL Cholesterol Cecil 18.4 mg/dL LAB CHEMISTRY METHOD 07/19/2024 4:56 PM EDT [facility] Non HDL Chol. (LDL+VLDL) 95 <145 mg/dL LAB CHEMISTRY METHOD 07/19/2024 4:56 PM [facility] Chol/HDL Ratio 3.6 0.0 - 4.4 LAB CHEMISTRY METHOD 07/19/2024 4:56 PM [facility] Blood Venous blood specimen / Unknown Venipuncture / Unknown 07/19/2024 12:12 PM EDT 07/19/2024 12:12 PM EDT us Amanda Cain MD LAB BLOOD ORDERABLES Final Resul t [facility] [address] [place] [address], [place] [phone] * (ABNORMAL) Comprehensive metabolic panel (07/19/2024 12:12 PM EDT) Sodium 137 133 - 145 mmol/L LAB CHEMISTRY METHOD 07/19/2024 5:08 PM [facility] Potassium 4.2 3.5 - 5.5 mmol/L LAB CHEMISTRY METHOD 07/19/2024 5:08 PM [facility] Chloride 103 96 - 110 mmol/L LAB CHEMISTRY METHOD 07/19/2024 5:08 PM [facility] CO2 29 21 - 32 mmol/L LAB CHEMISTRY METHOD 07/19/2024 5:08 PM [facility] Anion Gap 5 3 - 11 LAB CHEMISTRY METHOD 07/19/2024 5:08 PM [facility] Glucose 215(H) 70 - 100 mg/dL LAB CHEMISTRY METHOD 07/19/2024 5:08 PM [facility] BUN 14 5 - 25 mg/dL LAB CHEMISTRY METHOD 07/19/2024 5:08 PM [facility] Creatinine 0.69(L) 0.70 - 1.30 mg/dL LAB CHEMISTRY METHOD 07/19/2024 5:08 PM [facility] eGFR 94 >=60 mL/min/1. 73m2 LAB CHEMISTRY METHOD 07/19/2024 5:08 PM [facility] Comment:Calculation based on the Chronic Kidney Disease Epidemiology Collaboration (CKD-EPI) equation refit without adjustment for race. BUN/Creatinine Ratio 20.3 LAB CHEMISTRY METHOD 07/19/2024 5:08 PM [facility] Calcium 8.7 8.5 - 10.5 mg/dL LAB CHEMISTRY METHOD 07/19/2024 5:08 PM [facility] AST (SGOT) 9(L) 10 - 42 unit/L LAB CHEMISTRY METHOD 07/19/2024 5:08 PM [facility] ALT (SGPT) 12 10 - 60 unit/L LAB CHEMISTRY METHOD 07/19/2024 5:08 PM [facility] Alkaline Phosphatase 94 42 - 121 unit/L LAB CHEMISTRY METHOD 07/19/2024 5:08 PM [facility] Total Protein 6.8 6.0 - 8.0 g/dL LAB CHEMISTRY METHOD 07/19/2024 5:08 PM [facility] Albumin 2.9(L) 3.2 - 5.0 g/dL LAB CHEMISTRY METHOD 07/19/2024 5:08 PM [facility] Total Bilirubin 0.3 0.0 - 1.4 mg/dL LAB CHEMISTRY METHOD 07/19/2024 5:08 PM [facility] Blood Venous blood specimen / Unknown Venipuncture / Unknown 07/19/2024 12:12 PM EDT 07/19/2024 12:12 PM EDT us Amanda Cain MD LAB BLOOD ORDERABLES Final Resul t [facility] [address] [place] [address], * Diabetes Foot Exam (01/12/2024) Diabetes: Annual Foot Exam abstracted Historical Provider HEALTH MAINTENANCE Final Result * Depression Screening (12/07/2023) Pathologist [facility] Depression Screening abstracted Historical Provider HEALTH MAINTENANCE Final Result * Hepatitis C Screening (12/02/2013) Pathologist [facility] Hepatitis C Screening abstracted Historical Provider HEALTH MAINTENANCE Final Result from Last 3 Months or Most Recently Relevant to Health Maintenance Insurance [employer] Member Subscriber Plan / Payer (Ef fective 2014-Present) Name:Frederick Jaimes Relation to Subscriber:Self Name:Frederick Jaimes Payer ID:[id number] Group ID:[id number] Type:Not on file Address: [place] [address] [address] [phone] Care Teams Cattle Shipper Relationship Specialty Start Date End Date Amanda Cain MD [address] [place] [address] PCP - General Internal Medicine 11/08/20
--- OUTSIDE RECORDS SUMMARY | 2024-12-17 16:30 | XMS_ITS | Patient Health Record ---
Author Organization [facility] Address [address] [place] [address] Care Team Providers Care Compliance Engineer Products Name Role Phone Cecilia Corcoran Primary Care Provid er Unavailable Lamont Rangel Unavailable [phone] NICOLE, BRENT Unavailable Unavailable Reason For Referral [...] Problem Status W/U Status Risk Notes Problem Information temporarily unavailable Diarrhea (R19.7) Active confirmed Problem [id number] Diarrhea, unspecified type (R19.7) Active confirmed Plan [...] Insured Coverage Start Date Coverage End Date [facility] [address] [place] [address] [id number] KAREN HUGHES Self - patient is the insured [facility] [address] [place] [address] [id number] KAREN HUGHES Self - patient is the insured Medical (General) History Medical History History ICD Code NIDDM Hypertension Asthma Pulmonary embolism COPD Denies [place] Stroke 2012--left-sided weakness---menta lly [place] Surgical History Surgery Date(Month/Year) percutaneous cholecystostomy tube in 2016 for acalculous cholecystitis-sees Dr. Cooper and is scheduled for an ultrasound of the gallbladder in January 2018 hand surgery
[2024-12-17 16:39] LABS: MANUAL DIFF FLAG NO
[2024-12-17 16:41] LABS: Hematocrit 35.9 % (42.0-52.0); Hemoglobin 12.4 g/dl (14.0-18.0); Imm Gran Abs Auto 0.02 X10*3/uL (0.00-0.03); Imm Gran Pct Auto 0.3 % (0.0-0.4); Lymphocytes Absolute Auto 1.5 X10*3/uL (1.2-4.9); Mean Corpuscular HGB Conc 34.5 g/dl (31.0-36.0); Mean Corpuscular Hemoglobin 33.2 pg (27.0-33.0); Mean Corpuscular Volume 96.2 fL (80.0-98.0); NRBC Abs Auto 0.000 X10*3/uL (0.0-0.012); NRBC Pct Auto 0.0 /100WBC (0.0-0.2); Platelet Count 279 X10*3/uL (160-400); Red Blood Count 3.73 X10*6/uL (4.60-5.80); White Blood Count 6.9 X10*3/uL (4.8-10.8)
[2024-12-17 16:59] LABS: Anion Gap 14 (12-20); Blood Urea Nitrogen 16 mg/dL (9-16); Calcium 8.8 mg/dL (8.4-10.2); Carbon Dioxide 25 mmol/L (22-29); Chloride 106 mmol/L (96-108); Creatinine Clr Calc Pharmacy 86.8; Estimated Glomerular Filt Rate > 60; Potassium 4.6 mmol/L (3.3-5.1); Sodium 140 mmol/L (135-145)
[2024-12-17 17:15] LABS: INTERNATIONAL NORM RATIO 1.3 (0.9-1.1); Prothrombin Time 15.4 SEC (10.9-12.4)
--- NOTE | 2024-12-17 17:50 | P.HPHOSP_ITS ---
History of Present Illness Date of Service: 12/17/24 Chief Complaint: left second toe ulcer 79M PMH DM, CVA with left hemiparesis, diabetes, hyperlipidemia, paroxysmal AFib on Eliquis, peptic ulcer, presented with left second toe ulcer. patient scraped toe in shower 2 weeks prior to presentaiton, family treated topically with peroxide, last couple days started to swell and alissa, no purulent discharge, no fever. in ED xray with suspicion for OM. Review of Systems 2 Review of Systems: Yes all other systems are reviewed and are negative [facility] Medical History CVA (cerebral vascular accident) Hyperlipidemia Diabetes Social History Household Members: [facility] Do you presently have visiting nurse or other home services: Yes (pt. unsure.) Alcohol intake: never Patient Tobacco Use Status: Never used Tobacco Advance Directives: No Advance Directives Information Provided: No service: No Meds Allergies Allergy/AdvReac Type Severity Reaction Status Date / Time No Known Allergies (No Known Allergy Verified 12/17/24 16:12 Allergies*) Active Medications: Current Medications Acetaminophen (Acetaminophen 325 Mg Tablet) 650 mg PO Q6H PRN PRN Reason: Pain, Mild 1-3,fever,headache Calcium Carbonate (Calcium Carbonate 750 Mg Tab.Chew) 750 mg PO Q4H PRN PRN Reason: Heartburn Dextrose (Dextrose 50 % 25 Gm/50 Ml Syringe) 25 gm IVPUSH Q15M PRN; Protocol PRN Reason: per Hypoglycemia Standing Ord. Glucose (Glucose Gel 15 Gm Gel..Gram.) 15 gm PO Q15M PRN; Protocol PRN Reason: per Hypoglycemia Standing Ord. Piperacillin Sod/Tazobactam (Sod 4.5 gm/ Sodium Chloride) 100 mls @ 200 mls/hr IV ONCE ONE Stop: 12/17/24 17:57 Piperacillin Sod/Tazobactam (Sod 3.375 gm/ Sodium Chloride) 50 mls @ 100 mls/hr IV Q6H [facility] Vancomycin HCl 1,500 mg/ (Sodium Chloride) 500 mls @ 333.333 mls/hr IV ONCE ONE Stop: 12/17/24 19:16 Insulin Human Lispro (Insulin Lispro 100 Unit/Ml 3 Ml Vial) 0 unit SUBCUT [facility]; Protocol Magnesium Hydroxide (Milk Of Magnesia 30 Ml Oral.Susp) 30 ml PO DAILY PRN PRN Reason: Constipation Melatonin (Melatonin 3 Mg Tablet) 6 mg PO BEDTIME PRN PRN Reason: Insomnia Pharmacy Consult (Consult Rx Vancomycin Dosing) 1 each MISCELLANE DAILY PRN PRN Reason: Consult order Pharmacy Consult (Consult Rx Vancomycin Dosing) 1 each MISCELLANE DAILY PRN PRN Reason: Consult order Sodium Chloride (0.9 % Sodium Chloride Flush 3 Ml Syringe) 3 ml IVFLUSH [facility] Home Medications ?Medication ?Instructions ?Recorded ?Confirmed ?Last Taken ?Type apixaban 5 mg tablet (Eliquis) 5 mg PO BID 06/24/2406/23/24 History cetirizine 10 mg tablet 10 mg PO DAILY 06/24/2411/1106/23/24 History glipizide 5 mg tablet, extended 5 mg PO DAILY 06/24/24 06/24/24 06/23/24 History release 24 hr Physical Exam 2 Vital Signs and Narrative: Vital Signs: Last Vital Signs Temp 97.9 F 12/17/24 16:06 Pulse 83 12/17/24 16:06 Resp 16 12/17/24 16:06 BP 128/69 12/17/24 16:06 Pulse Ox 99 12/17/24 16:06 O2 Del Method Room Air 12/17/24 16:06 BMI result Body Mass Index 23.2 General: AO X 3, no acute distress Resp: CTA bilateral, no accessory muscles used CVS: S1,S2,RRR Results Labs 12/17/24 16:26 12/17/24 16:26 Labs: Laboratory Results - last 24 hr 12/17/24 16:26 MCV 96.2 MCH 33.2 H MCHC 34.5 RDW 13.7 Plt Count 279 MPV 10.0 Immature Gran % (Auto) 0.3 Neut % (Auto) 53.9 Lymph % (Auto) 21.5 [place] % (Auto) 7.2 Eos % (Auto) 15.8 H Baso % (Auto) 1.3 Lymph # (Auto) 1.5 [place] # (Auto) 0.5 Eos # (Auto) 1.1 H Baso # (Auto) 0.1 Abs Immat Gran (auto) 0.02 Absolute Neuts (auto) 3.7 Absolute Nucleated RBC 0.000 Nucleated RBC % (auto) 0.0 PT 15.4 H INR 1.3 H Anion Gap 14 Estim Creat Clear Calc 86.8 Estimated GFR > 60 Random Glucose 179 H Lactic Acid 2.0 Calcium 8.8 D Assessment and Plan (1) Osteomyelitis: Qualifiers: Laterality: left Osteomyelitis location: foot Osteomyelitis type: u nspecified type Qualified Code(s): M86.9 - Osteomyelitis, unspecified Status: Acute Plan 79M PMH DM, CVA with left hemiparesis, diabetes, hyperlipidemia, paroxysmal AFib on Eliquis, peptic ulcer, presented with left second toe ulcer. suspected left second toe acute osteomyelitis due to DM vanc, zosyn, ID eval, check ESR, crp, vascular imaging DM insulin history of cva eliquis pafib elqiuis, lopressor dvt prophylaxis - eliquis full code Quality Stroke Does the patient have a stroke diagnosis?: No VTE Prior VTE?: No VTE Risk Level:: Medical - moderate - high VTE Device Contraindication: Treatment Not Indicated VTE Drug Contraindication: N/A - Med Ordered
[2024-12-17 18:42] VITALS: BP 123/60; PULSE 85; RESP 20
--- NOTE | 2024-12-17 19:18 | PHA.PROG ---
Admission Date/Time: December 17, 2024 17:38 Indication: BONE AND JOINT Weight in k.3 kg Adjusted body weight in Kg: [place] body weight in Kg: Obesity Dosing Indication % IBW: Serum Creatinine - Last 168 Hours 12/17/24 16:26 Creatinine 0.60 Estimated CrCl and GFR - Last 168 Hours 12/17/24 16:26 Estim Creat Clear Calc 86.8 Estimated GFR > 60 Vancomycin Loading Dose: 1500 MG Current Vancomycin Dosing Regimen: 1000 MG Q12H Vancomycin Monitoring using AUC goal of 400 - 600 range with trough as surrogate marker: 566 Date and Time for next Vancomycin Level to be drawn: 12/19 @1700 Pharmacist Comments on Vancomycin Plan: Vancomycin dosing will take advantage of [employer] as a clinical decision support tool that uses Bayesian modeling to calculate individual patient's pharmacokinetic parameters and forecast the patient's drug concentration time course with the target goal AUC 24 range of 400 - 600 mg/L/hr.
[2024-12-17 20:06] VITALS: BP 130/76; PULSE 88; RESP 15; TEMP 36.7; O2SAT 100
[2024-12-17 21:22] VITALS: BMI 22.7
[2024-12-17 21:27] VITALS: BP 143/78; PULSE 91; RESP 18; TEMP 36.6; O2SAT 100
[2024-12-17 21:27] LABS: Glucose, Whole Blood 179 mg/dL (60-115)
--- NOTE | 2024-12-18 01:47 | PC.NURSE ---
During admission assessment, pt's s/o reported to this RN that pt had allergic reaction to the flu and pneumonia vaccines. No other known allergies besides those two vaccines.
[2024-12-18 03:25] VITALS: BP 128/64; PULSE 83; RESP 18; TEMP 36.2; O2SAT 93
[2024-12-18 06:40] LABS: Hematocrit 33.3 % (42.0-52.0); Hemoglobin 11.3 g/dl (14.0-18.0); Mean Corpuscular HGB Conc 33.9 g/dl (31.0-36.0); Mean Corpuscular Hemoglobin 32.8 pg (27.0-33.0); Mean Corpuscular Volume 96.5 fL (80.0-98.0); NRBC Abs Auto 0.000 X10*3/uL (0.0-0.012); NRBC Pct Auto 0.0 /100WBC (0.0-0.2); Platelet Count 237 X10*3/uL (160-400); Red Blood Count 3.45 X10*6/uL (4.60-5.80); White Blood Count 8.6 X10*3/uL (4.8-10.8)
[2024-12-18 06:56] LABS: Anion Gap 14 (12-20); Blood Urea Nitrogen 16 mg/dL (9-16); Calcium 8.4 mg/dL (8.4-10.2); Carbon Dioxide 23 mmol/L (22-29); Chloride 107 mmol/L (96-108); Creatinine Clr Calc Pharmacy 82.7; Estimated Glomerular Filt Rate > 60; Potassium 3.9 mmol/L (3.3-5.1); Sodium 140 mmol/L (135-145)
[2024-12-18 07:29] VITALS: BP 118/62; PULSE 74; RESP 18; TEMP 36.3; O2SAT 100
[2024-12-18 07:40] LABS: Glucose, Whole Blood 122 mg/dL (60-115)
[2024-12-18] MEDS: 0.9 % Sodium Chloride Flush 3 ML SYRINGE IVFLUSH ×3 (08:26→20:56)
--- NOTE | 2024-12-18 08:41 | P.PNIM_ITS ---
Subjective Subjective Date of Service: 12/18/24 Interval History: no compalints Physical Exam 2 Exam: Exam: left second toe ulcer Vital Signs: Vital Signs: Last Vital Signs Temp 97.3 F 12/18/24 07:29 Pulse 74 12/18/24 07:29 Resp 18 12/18/24 07:29 BP 118/62 12/18/24 07:29 Pulse Ox 100 12/18/24 07:29 O2 Del Method Room Air 12/18/24 07:29 BMI result Body Mass Index 22.7 Objective Data Active Medications Acetaminophen (Acetaminophen 325 Mg Tablet) 650 mg PO Q6H PRN PRN Reason: Pain, Mild 1-3,fever,headache Apixaban (Apixaban 5 Mg Tablet) 5 mg PO BID [facility] Last Admin: 12/18/24 08:23 Dose: 5 mg Documented By: FRANCIE Calcium Carbonate (Calcium Carbonate 750 Mg Tab.Chew) 750 mg PO Q4H PRN PRN Reason: Heartburn Dextrose (Dextrose 50 % 25 Gm/50 Ml Syringe) 25 gm IVPUSH Q15M PRN; Protocol PRN Reason: per Hypoglycemia Standing Ord. Glucose (Glucose Gel 15 Gm Gel..Gram.) 15 gm PO Q15M PRN; Protocol PRN Reason: per Hypoglycemia Standing Ord. Piperacillin Sod/Tazobactam (Sod 3.375 gm/ Sodium Chloride) 50 mls @ 100 mls/hr IV Q6H [facility] Last Admin: 12/18/24 08:28 Dose: 100 mls/hr Documented By: FRANCIE Vancomycin HCl 1,000 mg/ (Sodium Chloride) 270 mls @ 270 mls/hr IV Q12H [facility] Last Infusion: 12/18/24 07:26 Dose: Infused Documented By: FRANCIE Insulin Human Lispro (Insulin Lispro 100 Unit/Ml 3 Ml Vial) 0 unit SUBCUT QIDACHS [facility]; Protocol Last Admin: 12/18/24 07:45 Dose: Not Given Documented By: FRANCIE Non-Admin Reason: No Insulin Coverage Magnesium Hydroxide (Milk Of Magnesia 30 Ml Oral.Susp) 30 ml PO DAILY PRN PRN Reason: Constipation Melatonin (Melatonin 3 Mg Tablet) 6 mg PO BEDTIME PRN PRN Reason: Insomnia Metoprolol Tartrate (Metoprolol Tartrate 25 Mg Tablet) 25 mg PO BID [facility]; Protocol Last Admin: 12/18/24 08:23 Dose: 25 mg Documented By: FRANCIE Omeprazole (Omeprazole 40 Mg Capsule.Dr) 40 mg PO DAILY@0630 [facility] Last Admin: 12/18/24 06:09 Dose: 40 mg Documented By: ARIADNE Pharmacy Consult (Consult Rx Vancomycin Dosing) 1 each MISCELLANE DAILY PRN PRN Reason: Consult order Pharmacy Consult (Consult Rx Vancomycin Dosing) 1 each MISCELLANE DAILY PRN PRN Reason: Consult order Sodium Chloride (0.9 % Sodium Chloride Flush 3 Ml Syringe) 3 ml IVFLUSH QSHIFT [facility] Last Admin: 12/18/24 08:26 Dose: 3 ml Documented By: FRANCIE Labs 12/18/24 06:07 12/18/24 06:07 Labs: Laboratory Results - last 24 hr 12/17/24 12/17/24 12/18/24 16:26 21:23 06:07 MCV 96.2 96.5 MCH 33.2 H 32.8 MCHC 34.5 33.9 RDW 13.7 13.8 Plt Count 279 237 MPV 10.0 10.0 Immature Gran % (Auto) 0.3 Neut % (Auto) 53.9 Lymph % (Auto) 21.5 [place] % (Auto) 7.2 Eos % (Auto) 15.8 H Baso % (Auto) 1.3 Lymph # (Auto) 1.5 [place] # (Auto) 0.5 Eos # (Auto) 1.1 H Baso # (Auto) 0.1 Abs Immat Gran (auto) 0.02 Absolute Neuts (auto) 3.7 Absolute Nucleated RBC 0.000 0.000 Nucleated RBC % (auto) 0.0 0.0 ESR 48 H PT 15.4 H INR 1.3 H Anion Gap 14 14 Estim Creat Clear Calc 86.8 82.7 Estimated GFR > 60 > 60 POC Glucose 179 H Random Glucose 179 H 117 H Lactic Acid 2.0 Calcium 8.8 D 8.4 C-Reactive Protein 1.25 H 12/18/24 07:34 MCV MCH MCHC RDW Plt Count MPV Immature Gran % (Auto) Neut % (Auto) Lymph % (Auto) [place] % (Auto) Eos % (Auto) Baso % (Auto) Lymph # (Auto) [place] # (Auto) Eos # (Auto) Baso # (Auto) Abs Immat Gran (auto) Absolute Neuts (auto) Absolute Nucleated RBC Nucleated RBC % (auto) ESR PT INR Anion Gap Estim Creat Clear Calc Estimated GFR POC Glucose 122 H Random Glucose Lactic Acid Calcium C-Reactive Protein Assessment and Plan (1) Osteomyelitis: Status: Acute Plan 79M PMH DM, CVA with left hemiparesis, diabetes, hyperlipidemia, paroxysmal AFib on Eliquis, peptic ulcer, presented with left second toe ulcer. suspected left second toe acute osteomyelitis due to DM vanc, zosyn, ID eval, ESR 48 follow up vascular imaging DM insulin history of cva eliquis pafib elqiuis, lopressor dvt prophylaxis - eliquis full code reason for continued hospitalization:iv abx Quality Stroke Does the patient have a stroke diagnosis?: No VTE Prior VTE?: No VTE Risk Level:: Medical - moderate - high VTE Device Contraindication: Treatment Not Indicated VTE Drug Contraindication: N/A - Med Ordered
--- NOTE | 2024-12-18 09:38 | PHA.MEDREC ---
Pharmacy Consult ? Medication Reconciliation Pharmacy has completed the medication reconciliation.Med rec complete, spoke to patient's son Satish and compared with pharmacy claim history.
[2024-12-18 11:16] LABS: Glucose, Whole Blood 151 mg/dL (60-115)
--- NOTE | 2024-12-18 16:01 | MHC.CM.PN ---
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 NGUYỄN HCP ON FILE PCP: [facility]RA[facility] IMM DELIVERED DCP: HOME RESUME [employer] BLS TRANSPORT
[2024-12-18 17:24] VITALS: BP 143/66; PULSE 77; RESP 18; TEMP 36.8; O2SAT 99
[2024-12-18 17:33] LABS: Glucose, Whole Blood 134 mg/dL (60-115)
[2024-12-18 19:16] VITALS: BP 126/66; PULSE 87; RESP 18; TEMP 36.1; O2SAT 99
[2024-12-18 20:47] LABS: Glucose, Whole Blood 168 mg/dL (60-115)
[2024-12-18 20:57] VITALS: BP 93/54; PULSE 88
[2024-12-19 03:22] VITALS: BP 104/56; PULSE 75; RESP 18; TEMP 36; O2SAT 97
[2024-12-19 06:43] LABS: Hematocrit 30.0 % (42.0-52.0); Hemoglobin 10.4 g/dl (14.0-18.0); Mean Corpuscular HGB Conc 34.7 g/dl (31.0-36.0); Mean Corpuscular Hemoglobin 33.0 pg (27.0-33.0); Mean Corpuscular Volume 95.2 fL (80.0-98.0); NRBC Abs Auto 0.000 X10*3/uL (0.0-0.012); NRBC Pct Auto 0.0 /100WBC (0.0-0.2); Platelet Count 228 X10*3/uL (160-400); Red Blood Count 3.15 X10*6/uL (4.60-5.80); White Blood Count 7.4 X10*3/uL (4.8-10.8)
[2024-12-19 07:30] LABS: Anion Gap 14 (12-20); Blood Urea Nitrogen 19 mg/dL (9-16); Calcium 7.9 mg/dL (8.4-10.2); Carbon Dioxide 21 mmol/L (22-29); Chloride 110 mmol/L (96-108); Creatinine Clr Calc Pharmacy 80.1; Estimated Glomerular Filt Rate > 60; Potassium 3.6 mmol/L (3.3-5.1); Sodium 141 mmol/L (135-145)
[2024-12-19 07:31] LABS: Glucose, Whole Blood 125 mg/dL (60-115)
[2024-12-19 07:53] VITALS: BP 109/58; PULSE 87
[2024-12-19 08:12] VITALS: BP 119/76; PULSE 91; RESP 12; TEMP 36.4; O2SAT 99
--- NOTE | 2024-12-19 08:51 | HO.PM.IMPN ---
Subjective Subjective Date of Service: 12/19/24 Interval History: no complaints Physical Exam Exam: Exam: left second toe ulcer Vital Signs: Vital Signs: Last Vital Signs Temp 97.6 F 12/19/24 08:12 Pulse 91 12/19/24 08:12 Resp 12 12/19/24 08:12 BP 119/76 12/19/24 08:12 Pulse Ox 99 12/19/24 08:12 O2 Del Method Room Air 12/19/24 08:12 BMI result Body Mass Index 22.7 Objective Data Active Medications Acetaminophen (Acetaminophen 325 Mg Tablet) 650 mg PO Q6H PRN PRN Reason: Pain, Mild 1-3,fever,headache Apixaban (Apixaban 5 Mg Tablet) 5 mg PO BID [facility] Last Admin: 12/19/24 07:53 Dose: 5 mg Documented By: AYAD Calcium Carbonate (Calcium Carbonate 750 Mg Tab.Chew) 750 mg PO Q4H PRN PRN Reason: Heartburn Dextrose (Dextrose 50 % 25 Gm/50 Ml Syringe) 25 gm IVPUSH Q15M PRN; Protocol PRN Reason: per Hypoglycemia Standing Ord. Glucose (Glucose Gel 15 Gm Gel..Gram.) 15 gm PO Q15M PRN; Protocol PRN Reason: per Hypoglycemia Standing Ord. Piperacillin Sod/Tazobactam (Sod 3.375 gm/ Sodium Chloride) 50 mls @ 100 mls/hr IV Q6H [facility] Last Admin: 12/19/24 08:05 Dose: 100 mls/hr Documented By: AYAD Vancomycin HCl 1,000 mg/ (Sodium Chloride) 270 mls @ 270 mls/hr IV Q12H [facility] Last Infusion: 12/19/24 07:20 Dose: Infused Documented By: AYAD Insulin Human Lispro (Insulin Lispro 100 Unit/Ml 3 Ml Vial) 0 unit SUBCUT QIDACHS [facility]; Protocol Last Admin: 12/19/24 07:41 Dose: Not Given Documented By: AYAD Non-Admin Reason: No Insulin Coverage Magnesium Hydroxide (Milk Of Magnesia 30 Ml Oral.Susp) 30 ml PO DAILY PRN PRN Reason: Constipation Melatonin (Melatonin 3 Mg Tablet) 6 mg PO BEDTIME PRN PRN Reason: Insomnia Metoprolol Tartrate (Metoprolol Tartrate 25 Mg Tablet) 25 mg PO BID [facility]; Protocol Last Admin: 12/19/24 07:53 Dose: 25 mg Documented By: AYAD Omeprazole (Omeprazole 40 Mg Capsule.) 40 mg PO DAILY@0630 [facility] Last Admin: 12/19/24 06:13 Dose: 40 mg Documented By: CARLOS Pharmacy Consult (Consult Rx Vancomycin Dosing) 1 each MISCELLANE DAILY PRN PRN Reason: Consult order Sodium Chloride (0.9 % Sodium Chloride Flush 3 Ml Syringe) 3 ml IVFLUSH QSHIFT [facility] Last Admin: 12/19/24 07:42 Dose: Not Given Documented By: AYAD Non-Admin Reason: IV Running Labs 12/19/24 05:42 12/19/24 05:42 Labs: Laboratory Results - last 24 hr 12/18/24 12/18/24 12/18/24 11:06 17:27 20:29 MCV MCH MCHC RDW Plt Count MPV Absolute Nucleated RBC Nucleated RBC % (auto) Anion Gap Estim Creat Clear Calc Estimated GFR POC Glucose 151 H 134 H 168 H Random Glucose Calcium 12/19/24 12/19/24 05:42 07:27 MCV 95.2 MCH 33.0 MCHC 34.7 RDW 14.0 Plt Count 228 MPV 10.1 Absolute Nucleated RBC 0.000 Nucleated RBC % (auto) 0.0 Anion Gap 14 Estim Creat Clear Calc 80.1 Estimated GFR > 60 POC Glucose 125 H Random Glucose 124 H Calcium 7.9 L Microbiology Microbiology Results: Microbiology 12/17/24 17:45 Blood Culture - Preliminary Blood - Venous No growth after 24 hours. 12/17/24 17:45 Blood Culture - Preliminary Blood - Venous No growth after 24 hours. Assessment and Plan (1) Osteomyelitis: Status: Acute Plan 79M PMH DM, CVA with left hemiparesis, diabetes, hyperlipidemia, paroxysmal AFib on Eliquis, peptic ulcer, presented with left second toe ulcer. suspected left second toe acute osteomyelitis due to DM and PVD vanc, zosyn, ID eval, ESR 48 mri c/w OM follow up vascular eval DM insulin history of cva eliquis pafib elqiuis, lopressor dvt prophylaxis - eliquis full code reason for continued hospitalization:iv abx Quality Stroke Does the patient have a stroke diagnosis?: No VTE Prior VTE?: No VTE Risk Level:: Medical - moderate - high VTE Device Contraindication: Treatment Not Indicated VTE Drug Contraindication: N/A - Med Ordered
[2024-12-19 11:43] LABS: Glucose, Whole Blood 247 mg/dL (60-115)
[2024-12-19 14:08] LABS: CDiff Gene PCR NEGATIVE (Negative)
[2024-12-19 14:45] LABS: E. coli EAEC Not Detected (Not Detect.); E. coli EPEC Not Detected (Not Detect.); E. coli ETEC Not Detected (Not Detect.); E. coli STEC Not Detected (Not Detect.); Shigella sp./EIEC Not Detected (Not Detect.)
[2024-12-19 15:24] VITALS: BP 147/84; PULSE 89; RESP 16; TEMP 36.3; O2SAT 99
[2024-12-19] MEDS: 0.9 % Sodium Chloride Flush 3 ML SYRINGE IVFLUSH ×2 (15:28→20:51)
[2024-12-19 16:21] LABS: Glucose, Whole Blood 135 mg/dL (60-115)
[2024-12-19 19:25] VITALS: BP 140/77; PULSE 85; RESP 17; TEMP 36.4; O2SAT 94
[2024-12-19 20:22] LABS: Glucose, Whole Blood 240 mg/dL (60-115)
[2024-12-19 20:50] VITALS: BP 127/58; PULSE 77
--- NOTE | 2024-12-20 00:34 | W.PM.IDCN ---
History of Present Illness Data of Consult Service Date: 12/19/24 Requesting physician: Jam Peraza Primary Care Provider: Unknown Physician HPI Reason for consult: OM 2,3 left toe He presents with redness left foot,2nd and 3rd toes reportedly after injury bathing. He has OM both toes He has PVD. Review of Systems Review of Systems: Yes all other systems are reviewed and are negative PMFSH Past Medical History Medical History Duodenal bulb ulcer Chronic anticoagulation Abnormal CT of the abdomen CVA (cerebral vascular accident) Hyperlipidemia Diabetes Family History Family history: reviewed and not pertinent Social History Social History Household Members: Spouse Housing: House Do you presently have visiting nurse or other home services: Yes Alcohol intake: never Patient Tobacco Use Status: Never used Tobacco service: No Meds Allergies Allergy/AdvReac Type Severity Reaction Status Date / Time No Known Allergies (No Known Allergy Verified 12/17/24 16:12 Allergies*) Active Medications: Current Medications Acetaminophen (Acetaminophen 325 Mg Tablet) 650 mg PO Q6H PRN PRN Reason: Pain, Mild 1-3,fever,headache Apixaban (Apixaban 5 Mg Tablet) 5 mg PO BID [facility] Last Admin: 12/19/24 20:50 Dose: 5 mg Calcium Carbonate (Calcium Carbonate 750 Mg Tab.Chew) 750 mg PO Q4H PRN PRN Reason: Heartburn Dextrose (Dextrose 50 % 25 Gm/50 Ml Syringe) 25 gm IVPUSH Q15M PRN; Protocol PRN Reason: per Hypoglycemia Standing Ord. Glucose (Glucose Gel 15 Gm Gel..Gram.) 15 gm PO Q15M PRN; Protocol PRN Reason: per Hypoglycemia Standing Ord. Piperacillin Sod/Tazobactam (Sod 3.375 gm/ Sodium Chloride) 50 mls @ 100 mls/hr IV Q6H [facility] Last Infusion: 12/19/24 20:42 Dose: Infused Vancomycin HCl 500 mg/ Sodium (Chloride) 110 mls @ 110 mls/hr IV Q12H [facility] Last Infusion: 12/19/24 21:57 Dose: Infused Insulin Human Lispro (Insulin Lispro 100 Unit/Ml 3 Ml Vial) 0 unit SUBCUT QIDACHS [facility]; Protocol Last Admin: 12/19/24 20:49 Dose: 4 unit Magnesium Hydroxide (Milk Of Magnesia 30 Ml Oral.Susp) 30 ml PO DAILY PRN PRN Reason: Constipation Melatonin (Melatonin 3 Mg Tablet) 6 mg PO BEDTIME PRN PRN Reason: Insomnia Metoprolol Tartrate (Metoprolol Tartrate 25 Mg Tablet) 25 mg PO BID [facility]; Protocol Last Admin: 12/19/24 20:50 Dose: 25 mg Omeprazole (Omeprazole 40 Mg Capsule.Dr) 40 mg PO DAILY@0630 [facility] Last Admin: 12/19/24 06:13 Dose: 40 mg Pharmacy Consult (Consult Rx Vancomycin Dosing) 1 each MISCELLANE DAILY PRN PRN Reason: Consult order Sodium Chloride (0.9 % Sodium Chloride Flush 3 Ml Syringe) 3 ml IVFLUSH [facility] Last Admin: 12/19/24 20:51 Dose: 3 ml Home Medications ?Medication ?Instructions ?Recorded ?Confirmed ?Last Taken ?Type apixaban 5 mg tablet (Eliquis) 5 mg PO BID 06/24/24 12/18/24 06/23/24 History glipizide 5 mg tablet, extended 5 mg PO DAILY 06/24/24 12/18/24 06/23/24 History release 24 hr fluticasone 250 mcg-salmeterol 50 1 ea inhalation BID 12/18/24 12/18/24 Unknown History mcg/dose blistr powdr for inhalation metoprolol tartrate 25 mg tablet 25 mg PO BID 12/18/24 12/18/24 Unknown History omeprazole 20 mg capsule,delayed 20 mg PO DAILY@0630 12/18/24 12/18/24 Unknown History release Physical Exam Vital Signs: Vital Signs: Last Vital Signs Temp 97.6 F 12/19/24 19:25 Pulse 77 12/19/24 20:50 Resp 17 12/19/24 19:25 BP 127/58 L 12/19/24 20:50 Pulse Ox 94 12/19/24 19:25 O2 Del Method Room Air 12/19/24 19:25 BMI result Body Mass Index 22.7 Const: General: cooperative HEENT: Head: Yes normal to inspection Face and sinus: Yes normal facial exam Mouth: Normal oral and palatal mucosa present Teeth and gingiva: dentition normal Eyes: General: appearance normal, both eyes and all related structures Pupils: Equal, round and reactive pupils present Resp: Effort & Inspection: normal respiratory effort Cardio: Rate: regular rate Rhythm: regular rhythm GI: Palpation (GI): Soft to palpation and nontender : General: Yes no CVA tenderness Back/Spine/Pelvis: Back: no CVA tenderness Skin: General skin exam: no rashes or lesions noted Neuro: General: moves all extremities Cranial nerves: Yes Equal, round and reactive pupils present Extrem: Other: diminished pulses shiny reddened legs and feet left 2,3rd toes swollen and reddened,no tinea pedis Psych: Appearance: grossly normal Results Labs 12/19/24 05:42 12/19/24 05:42 Labs: Short CBC 12/19/24 Range/Units 05:42 WBC 7.4 (4.8-10.8) X10*3/uL Hgb 10.4 L (14.0-18.0) g/dl Hct 30.0 L (42.0-52.0) % Plt Count 228 (160-400) X10*3/uL BMP 12/19/24 05:42 Sodium 141 Potassium 3.6 Chloride 110 H Carbon Dioxide 21 L BUN 19 H Creatinine 0.65 Calcium 7.9 L Microbiology Microbiology Results: Microbiology 12/17/24 17:45 Blood - Venous Blood Culture - Preliminary No growth after 48 hours. 12/17/24 17:45 Blood - Venous Blood Culture - Preliminary No growth after 48 hours. Assessment and Plan (1) Osteomyelitis: Qualifiers: Laterality: left Osteomyelitis location: foot Osteomyelitis type: unspecified type Qualified Code(s): M86.9 - Osteomyelitis, unspecified Status: Acute Plan He appears to have OM with severe changes in legs and feet c/w severe vascular disease. He has unremarkable cultures Would give IV Vancomycin and likely aim at staph and strep and IV Daptomycin for six weeks with weekly creatinine ,cbc and CK. IV antibiotics may not help much with severe vascular disease and amputation may be necessary. See Vascular.
[2024-12-20 03:03] VITALS: BP 119/69; PULSE 78; RESP 18; TEMP 36.4; O2SAT 98
[2024-12-20 06:58] LABS: Creatinine Clr Calc Pharmacy 89.8; Estimated Glomerular Filt Rate > 60
[2024-12-20 07:05] VITALS: BP 121/63; PULSE 69; RESP 14; TEMP 36.7; O2SAT 99
[2024-12-20 07:20] LABS: Glucose, Whole Blood 121 mg/dL (60-115)
[2024-12-20] MEDS: 0.9 % Sodium Chloride Flush 3 ML SYRINGE IVFLUSH ×2 (07:54→16:11)
--- NOTE | 2024-12-20 08:57 | HO.PM.IMPN ---
Subjective Subjective Date of Service: 12/20/24 Interval History: diarrhea Physical Exam Vital Signs: Vital Signs: Last Vital Signs Temp 98.0 F 12/20/24 07:05 Pulse 69 12/20/24 07:05 Resp 14 12/20/24 07:05 BP 121/63 12/20/24 07:05 Pulse Ox 99 12/20/24 07:05 O2 Del Method Room Air 12/20/24 07:05 BMI result Body Mass Index 22.7 Const: General: cooperative HEENT: Head: Yes normal to inspection Face and sinus: Yes normal facial exam Mouth: Normal oral and palatal mucosa present Teeth and gingiva: dentition normal Eyes: General: appearance normal, both eyes and all related structures Pupils: Equal, round and reactive pupils present Resp: Effort & Inspection: normal respiratory effort Cardio: Rate: regular rate Rhythm: regular rhythm GI: Palpation (GI): Soft to palpation and nontender : General: Yes no CVA tenderness Back/Spine/Pelvis: Back: no CVA tenderness Skin: General skin exam: no rashes or lesions noted Neuro: General: moves all extremities Cranial nerves: Yes Equal, round and reactive pupils present Extrem: Other: diminished pulses shiny reddened legs and feet left 2,3rd toes swollen and reddened,no tinea pedis Psych: Appearance: grossly normal Objective Data Active Medications Acetaminophen (Acetaminophen 325 Mg Tablet) 650 mg PO Q6H PRN PRN Reason: Pain, Mild 1-3,fever,headache Apixaban (Apixaban 5 Mg Tablet) 5 mg PO BID [facility] Last Admin: 12/20/24 07:53 Dose: 5 mg Documented By: AYAD Calcium Carbonate (Calcium Carbonate 750 Mg Tab.Chew) 750 mg PO Q4H PRN PRN Reason: Heartburn Dextrose (Dextrose 50 % 25 Gm/50 Ml Syringe) 25 gm IVPUSH Q15M PRN; Protocol PRN Reason: per Hypoglycemia Standing Ord. Glucose (Glucose Gel 15 Gm Gel..Gram.) 15 gm PO Q15M PRN; Protocol PRN Reason: per Hypoglycemia Standing Ord. Piperacillin Sod/Tazobactam (Sod 3.375 gm/ Sodium Chloride) 50 mls @ 100 mls/hr IV Q6H [facility] Last Infusion: 12/20/24 08:42 Dose: Infused Documented By: AYAD Insulin Human Lispro (Insulin Lispro 100 Unit/Ml 3 Ml Vial) 0 unit SUBCUT QIDACHS [facility]; Protocol Last Admin: 12/20/24 07:24 Dose: Not Given Documented By: AYAD Non-Admin Reason: No Insulin Coverage Magnesium Hydroxide (Milk Of Magnesia 30 Ml Oral.Susp) 30 ml PO DAILY PRN PRN Reason: Constipation Melatonin (Melatonin 3 Mg Tablet) 6 mg PO BEDTIME PRN PRN Reason: Insomnia Metoprolol Tartrate (Metoprolol Tartrate 25 Mg Tablet) 25 mg PO BID [facility]; Protocol Last Admin: 12/20/24 07:53 Dose: 25 mg Documented By: AYAD Omeprazole (Omeprazole 40 Mg Capsule.Dr) 40 mg PO DAILY@0630 [facility] Last Admin: 12/20/24 05:55 Dose: 40 mg Documented By: CARLOS Pharmacy Consult (Consult Rx Vancomycin Dosing) 1 each MISCELLANE DAILY PRN PRN Reason: Consult order Sodium Chloride (0.9 % Sodium Chloride Flush 3 Ml Syringe) 3 ml IVFLUSH QSHIFT [facility] Last Admin: 12/20/24 07:54 Dose: 3 ml Documented By: AYAD Labs 12/19/24 05:42 12/20/24 05:51 Labs: Laboratory Results - last 24 hr 12/19/24 12/19/24 12/19/24 11:33 12:43 16:17 Hold Purple Top Estim Creat Clear Calc Estimated GFR POC Glucose 247 H 135 H Stl C. cayetanensis PCR Not Detected Stool Rotavirus A PCR Not Detected Stl Adenov F 40/41 PCR Not Detected Stool Astrovirus (PCR) Not Detected Stool Campylobacter PCR Not Detected Stool Cryptosporidium PCR Not Detected Stl Sh Tox Pr E STEC PCR Not Detected Stool E coli O157 PCR Not applicable Stl Enterotoxigenic E PCR Not Detected Stool EPEC (PCR) Not Detected Stool EAEC (PCR) Not Detected Stl E. histolytica PCR Not Detected Stool Giardia Lamblia PCR Not Detected Stl P. shigelloides PCR Not Detected Stool Salmonella PCR Not Detected Stool Sapovirus (PCR) Not Detected Stl Shigella/EIEC PCR Not Detected St Y.enterocolitica PCR Not Detected Stool Vibrio (PCR) Not Detected Stl Vibrio cholerae PCR Not Detected Stl Norovirus GI/GII PCR Not Detected Random Vancomycin C. difficile Tox B Gene NEGATIVE 09/05/1412/19/24 12/20/24 17:15 20:16 05:51 Hold Purple Top SEE NOTE Estim Creat Clear Calc 89.8 Estimated GFR > 60 POC Glucose 240 H Stl C. cayetanensis PCR Stool Rotavirus A PCR Stl Adenov F 40/41 PCR Stool Astrovirus (PCR) Stool Campylobacter PCR Stool Cryptosporidium PCR Stl Sh Tox Pr E STEC PCR Stool E coli O157 PCR Stl Enterotoxigenic E PCR Stool EPEC (PCR) Stool EAEC (PCR) Stl E. histolytica PCR Stool Giardia Lamblia PCR Stl P. shigelloides PCR Stool Salmonella PCR Stool Sapovirus (PCR) Stl Shigella/EIEC PCR St Y.enterocolitica PCR Stool Vibrio (PCR) Stl Vibrio cholerae PCR Stl Norovirus GI/GII PCR Random Vancomycin 21.7 H C. difficile Tox B Gene 12/20/24 07:08 Hold Purple Top Estim Creat Clear Calc Estimated GFR POC Glucose 121 H Stl C. cayetanensis PCR Stool Rotavirus A PCR Stl Adenov F 40/41 PCR Stool Astrovirus (PCR) Stool Campylobacter PCR Stool Cryptosporidium PCR Stl Sh Tox Pr E STEC PCR Stool E coli O157 PCR Stl Enterotoxigenic E PCR Stool EPEC (PCR) Stool EAEC (PCR) Stl E. histolytica PCR Stool Giardia Lamblia PCR Stl P. shigelloides PCR Stool Salmonella PCR Stool Sapovirus (PCR) Stl Shigella/EIEC PCR St Y.enterocolitica PCR Stool Vibrio (PCR) Stl Vibrio cholerae PCR Stl Norovirus GI/GII PCR Random Vancomycin C. difficile Tox B Gene Microbiology Microbiology Results: Microbiology 12/17/24 17:45 Blood Culture - Preliminary Blood - Venous No growth after 48 hours. 12/17/24 17:45 Blood Culture - Preliminary Blood - Venous No growth after 48 hours. Assessment and Plan (1) Osteomyelitis: Status: Acute Plan 79M PMH DM, CVA with left hemiparesis, diabetes, hyperlipidemia, paroxysmal AFib on Eliquis, peptic ulcer, presented with left second toe ulcer. left 2nd and 3rd toe acute osteomyelitis due to DM and PVD vanc, ID appreciated - on discharge can complete 6 weeks iv dapto (end 01/22/25) mri c/w OM LLE doppler - Monophasic flow within the posterior tibial artery. Diffuse atherosclerotic disease. follow up vascular eval continue eliquis, added statin DM insulin history of cva eliquis added statin pafib elqiuis, lopressor dvt prophylaxis - eliquis full code reason for continued hospitalization:iv abx, vasc eval Quality Stroke Does the patient have a stroke diagnosis?: No VTE Prior VTE?: No VTE Risk Level:: Medical - moderate - high VTE Device Contraindication: Treatment Not Indicated VTE Drug Contraindication: N/A - Med Ordered
[2024-12-20 11:03] LABS: Glucose, Whole Blood 205 mg/dL (60-115)
--- NOTE | 2024-12-20 11:45 | MHC.CM.PN ---
PER MD ROUNDS, PT WILL NEED 6 WEEKS OF IV DAPTOMYCIN, NO VASCULAR INTERVENTION AT THIS TIME. REFERRAL TO [facility] (PT[facility]ILY [facility] CHO[facility]) AND [facility]. WILL BE ADMINISTERING THE MED AND WILL BE COMING IN FOR A TEACH WITH THE [facility] LIA[facility] TODAY AT NOON. PT IS AWAITING PICC PLACEMENT. CM WILL CONTINUE TO FOLLOW FOR PLAN.
--- NOTE | 2024-12-20 12:18 | PM.CNGS ---
History of Present Illness Consult details Consult date: 12/20/24 Reason for consult: wound care Narrative: Very pleasant 79-year-old gentleman presents for evaluation regarding nonhealing left lower extremity ulcers. This is on the dorsum of the 2nd and 3rd toe. He has a history of diabetes and a prior CVA which has him with left hemiparesis. I suspect he has minimal movement. He says he scraped his toes in the shower about 2 weeks prior. Has been treated with topical treatment. There was concern of his vascular status. He now presents to us for vascular evaluation. Review of Systems Review of Systems: Yes all other systems are reviewed and are negative Constitutional: Constitutional: Reports no additional constitutional complaints ENT: Reports Normal hearing present Cardiovascular: Cardiovascular: Denies chest pain, Denies chest pain at rest, Denies chest pain with activity and Denies pedal edema Respiratory: Respiratory: Denies cough Gastrointestinal: Gastrointestinal: Denies abdominal pain Musculoskeletal: Musculoskeletal: Denies abnormal gait, Denies muscle cramps and Denies radiating pain into limb Integumentary/Breasts: Skin/Breast: Denies skin ulcer and Denies wounds Neurologic: Reports Normal hearing present and Denies abnormal gait Psychiatric: Psychiatric: Reports no additional psychiatric complaints PMFSH Past Medical History Medical History Duodenal bulb ulcer Chronic anticoagulation Abnormal CT of the abdomen CVA (cerebral vascular accident) Hyperlipidemia Diabetes Family History Family history: reviewed and not pertinent Social History Social History Household Members: Spouse Housing: House Do you presently have visiting nurse or other home services: Yes Alcohol intake: never Patient Tobacco Use Status: Never used Tobacco service: No Meds Allergies Allergy/AdvReac Type Severity Reaction Status Date / Time No Known Allergies (No Known Allergy Verified 12/17/24 16:12 Allergies*) Active Medications: Current Medications Acetaminophen (Acetaminophen 325 Mg Tablet) 650 mg PO Q6H PRN PRN Reason: Pain, Mild 1-3,fever,headache Last Admin: 12/20/24 09:18 Dose: 650 mg Apixaban (Apixaban 5 Mg Tablet) 5 mg PO BID [facility] Last Admin: 12/20/24 07:53 Dose: 5 mg Atorvastatin Calcium (Atorvastatin Calcium 40 Mg Tablet) 40 mg PO BEDTIME [facility] Calcium Carbonate (Calcium Carbonate 750 Mg Tab.Chew) 750 mg PO Q4H PRN PRN Reason: Heartburn Dextrose (Dextrose 50 % 25 Gm/50 Ml Syringe) 25 gm IVPUSH Q15M PRN; Protocol PRN Reason: per Hypoglycemia Standing Ord. Glucose (Glucose Gel 15 Gm Gel..Gram.) 15 gm PO Q15M PRN; Protocol PRN Reason: per Hypoglycemia Standing Ord. Vancomycin HCl 750 mg/ Sodium (Chloride) 265 mls @ 265 mls/hr IV Q12H [facility] Last Infusion: 12/20/24 10:39 Dose: Infused Insulin Human Lispro (Insulin Lispro 100 Unit/Ml 3 Ml Vial) 0 unit SUBCUT QIDACHS [facility]; Protocol Last Admin: 12/20/24 11:36 Dose: 4 unit Loperamide HCl (Loperamide Hcl 2 Mg Capsule) 2 mg PO Q6H PRN PRN Reason: Diarrhea Last Admin: 12/20/24 09:18 Dose: 2 mg Magnesium Hydroxide (Milk Of Magnesia 30 Ml Oral.Susp) 30 ml PO DAILY PRN PRN Reason: Constipation Melatonin (Melatonin 3 Mg Tablet) 6 mg PO BEDTIME PRN PRN Reason: Insomnia Metoprolol Tartrate (Metoprolol Tartrate 25 Mg Tablet) 25 mg PO BID [facility]; Protocol Last Admin: 12/20/24 07:53 Dose: 25 mg Omeprazole (Omeprazole 40 Mg Capsule.Dr) 40 mg PO DAILY@0630 [facility] Last Admin: 12/20/24 05:55 Dose: 40 mg Pharmacy Consult (Consult Rx Vancomycin Dosing) 1 each MISCELLANE DAILY PRN PRN Reason: Consult order Sodium Chloride (0.9 % Sodium Chloride Flush 3 Ml Syringe) 3 ml IVFLUSH QSHIFT [facility] Last Admin: 12/20/24 07:54 Dose: 3 ml Home Medications ?Medication ?Instructions ?Recorded ?Confirmed ?Last Taken ?Type apixaban 5 mg tablet (Eliquis) 5 mg PO BID 06/24/24 12/18/24 06/23/24 History glipizide 5 mg tablet, extended 5 mg PO DAILY 06/24/24 12/18/24 06/23/24 History release 24 hr fluticasone 250 mcg-salmeterol 50 1 ea inhalation BID 12/18/24 12/18/24 Unknown History mcg/dose blistr powdr for inhalation metoprolol tartrate 25 mg tablet 25 mg PO BID 12/18/24 12/18/24 Unknown History omeprazole 20 mg capsule,delayed 20 mg PO DAILY@0630 12/18/24 12/18/24 Unknown History release Physical Exam Vital Signs: Vital Signs: Last Vital Signs Temp 98.0 F 12/20/24 07:05 Pulse 69 12/20/24 07:05 Resp 14 12/20/24 07:05 BP 121/63 12/20/24 07:05 Pulse Ox 99 12/20/24 07:05 O2 Del Method Room Air 12/20/24 07:05 BMI result Body Mass Index 22.7 Const: General: cooperative, healthy appearing and comfortable Orientation/consciousness: oriented to person, oriented to place and oriented to time HEENT: Head: Yes normal to inspection Neck: Neck: Yes normal visual inspection Carotids: no bruits Chest: Chest palpation & inspection: normal inspection of the chest Resp: Effort & Inspection: normal respiratory effort and able to speak in complete sentences Auscultation: clear to auscultation bilaterally, no crackles, no rales, no rhonchi and no wheezes Cardio: Rate: regular rate Rhythm: regular rhythm Heart sounds: S1 normal heart sound present and S2 normal heart sound present Bruits: no carotid bruits Peripheral pulses: Peripheral pulses 2+ throughout GI: Inspection: Yes normal to inspection Skin: Wounds: no wounds Hair: normal Neuro: General: oriented to person, oriented to place and oriented to time Cranial nerves: Yes CN's II-XII intact bilaterally and Yes Normal hearing present Cognition (Neuro): normal cognition Motor exam (neuro): 5/5 motor strength present throughout Extrem: Other: venous exam: No significant superficial varicosities or spider telangiectasias, minimal edema General: No clubbing, No cyanosis and No edema Psych: Appearance: grossly normal Mental Status: mental status grossly normal Speech and movement: Normal speech and movement present Results Labs 12/19/24 05:42 12/20/24 05:51 Labs: Abnormal lab results 12/19/24 12/19/24 12/19/24 Range/Units 16:17 17:15 20:16 POC Glucose 135 H 240 H (60-115) mg/dL Random Vancomycin 21.7 H (15-20) mcg/mL 12/20/24 12/20/24 Range/Units 07:08 10:56 POC Glucose 121 H 205 H (60-115) mg/dL Random Vancomycin (15-20) mcg/mL BMP 12/20/24 05:51 Creatinine 0.58 All other labs normal. Imaging Additional studies: Arterial testing reviewed and there is question of tibial disease. Assessment and Plan (1) PAD (peripheral artery disease): Status: Acute Plan In short patient is stable from an arterial standpoint. He does have palpable arterial pulses. There is question of osteomyelitis on the dorsum of the toes. Would treat that medically. Does not require any vascular intervention or further follow-up with us. We will follow on an as-needed basis. Thank you for allowing us to assist in his care. If there are any questions or concerns please do not hesitate to contact us. Procedures Date of Service Date of Service: 12/20/24
[2024-12-20 15:30] VITALS: BP 124/69; PULSE 68; RESP 18; TEMP 36.6; O2SAT 99
[2024-12-20 16:19] LABS: Glucose, Whole Blood 123 mg/dL (60-115)
[2024-12-20 19:53] VITALS: BP 138/65; PULSE 78; RESP 18; TEMP 36.2; O2SAT 99
[2024-12-20 20:26] LABS: Glucose, Whole Blood 188 mg/dL (60-115)
[2024-12-21 03:45] VITALS: BP 107/54; PULSE 69; RESP 14; TEMP 36.7; O2SAT 99
[2024-12-21 06:01] LABS: Hematocrit 31.0 % (42.0-52.0); Hemoglobin 10.4 g/dl (14.0-18.0); Mean Corpuscular HGB Conc 33.5 g/dl (31.0-36.0); Mean Corpuscular Hemoglobin 32.5 pg (27.0-33.0); Mean Corpuscular Volume 96.9 fL (80.0-98.0); NRBC Abs Auto 0.000 X10*3/uL (0.0-0.012); NRBC Pct Auto 0.0 /100WBC (0.0-0.2); Platelet Count 228 X10*3/uL (160-400); Red Blood Count 3.20 X10*6/uL (4.60-5.80); White Blood Count 6.4 X10*3/uL (4.8-10.8)
[2024-12-21 06:15] LABS: Anion Gap 9 (12-20); Blood Urea Nitrogen 10 mg/dL (9-16); Calcium 8.0 mg/dL (8.4-10.2); Carbon Dioxide 26 mmol/L (22-29); Chloride 112 mmol/L (96-108); Creatinine Clr Calc Pharmacy 98.3; Estimated Glomerular Filt Rate > 60; Potassium 3.6 mmol/L (3.3-5.1); Sodium 143 mmol/L (135-145)
[2024-12-21 07:07] VITALS: BP 106/57; PULSE 75; RESP 14; TEMP 37.3; O2SAT 98
[2024-12-21 07:28] LABS: Glucose, Whole Blood 113 mg/dL (60-115)
[2024-12-21] MEDS: 0.9 % Sodium Chloride Flush 3 ML SYRINGE IVFLUSH ×2 (08:10→17:13)
[2024-12-21 11:09] LABS: Glucose, Whole Blood 182 mg/dL (60-115)
--- NOTE | 2024-12-21 13:52 | MHC.CM.PN ---
Addendum entered by Nesha Martin RN 12/21/24 14:12: Will need dose of dapto prior to dc. RN and MD aware. Original Note: Patient medically cleared for dc awaiting placement of PICC for IV abx at home. Per IR nurse, goal is PICC placement today but cannot guarantee. Tentative plan is for BLS transport home at 7pm. [facility] auth obtained. RN and aware. RN will call if patient unable to dc. understands plan. [facility] and [facility] updated of plan to dc today. If unable to get PICC today, will plan for dc tomorrow. IMM delivered.
--- NOTE | 2024-12-21 15:18 | PM.DS ---
DS: Providers Provider Date of Service: 12/21/24 Date of admission: 12/17/24 17:38 Date of discharge: 12/21/24 Primary care physician: Amanda Cain MD Consults: 12/17/24 17:38 Consult to Infectious Diseases Routine Consulting Provider: [facility] Reason for consultation: DFU/om 12/19/24 08:53 Consult to Vascular Surgery Routine Consulting Provider: [facility] Reason for consultation: pvd Attending physician on discharge: Dori Salazar Discharging clinician: Dori Salazar DS: Diagnosis Discharge Diagnosis (1) PAD (peripheral artery disease): Status: Acute DS: Summary Hospital Course Hospital Course: HPI:79M PMH DM, CVA with left hemiparesis, diabetes, hyperlipidemia, paroxysmal AFib on Eliquis, peptic ulcer, presented with left second toe ulcer. [facility] top[facility] with [facility], last couple days started to swell and alissa, no purulent discharge, no fever. in ED xray with suspicion for OM. Hospital course: 79-year-old male was presented with left 2nd toe ulcer-patient was started on IV antibiotic, blood cultures sent, further workup MRI foot:Osteomyelitis of the 2nd and 3rd proximal phalanges. With the above management patient seems to be improving, in addition LLE doppler - Monophasic flow within the posterior tibial artery. Diffuse atherosclerotic disease: Patient was seen by vascular:good pulses, conitnue eliquis, no surgical intervention for now, consider statin once complete daptomycin course. PICC line placed, chest x-ray checked with placement and discussed with the radiologist Dr Roach (okay to use). Discussed with the Infectious Disease patient will require daptomycin for 6 weeks. Plan: left 2nd and 3rd toe acute osteomyelitis due to DM and PVD:started on iv vanco, blood cultrues negative ,switched to iv daptomycin -duration 6 weeks-end date 01/29/25. hold statin for the duration of antibiotics, monitor ESR, CRP, CPK, CMP, CBC Q weekly whole on antibiotics. Above management discussed with the patient with the help of health informatics advisor in detail length, he understand and in agreement with the above plan, time spent 45 minutes. Time Attestation Total time managing care of this patient today: 45 mintues. Discharge Coordination Time (in mins): 45 min Quality: Safe Use of Opioids Does Pt have an Active Cancer Diagnosis on the Problem List?: No Quality: Stroke Does the patient have a stroke diagnosis?: No Physical Exam Exam: Exam: General: AO X 3, no acute distress Resp: CTA bilateral, no accessory muscles used CVS: S1,S2,rrr. ext: pulses present,skin area seems improving seems more dry/no discharge Vital Signs: Vital Signs: Last Vital Signs Temp 99.1 F 12/21/24 07:07 Pulse 75 12/21/24 07:07 Resp 14 12/21/24 07:07 BP 106/57 L 12/21/24 07:07 Pulse Ox 98 12/21/24 07:07 O2 Del Method Room Air 12/21/24 07:07 BMI result Body Mass Index 22.7 DS: Data Data Completed and Pending Completed studies during hospitalization [Text1]: Procedures Control Bleeding in Gastrointestinal Tract, Via Natural or Artificial Opening Endoscopic (06/24/24) Inspection of Lower Intestinal Tract, Via Natural or Artificial Opening Endoscopic (06/24/24) Introduction of Other Therapeutic Substance into Upper GI, Via Natural or Artificial Opening Endoscopic (06/24/24) Transfusion of Nonautologous Red Blood Cells into Peripheral Vein, Percutaneous Approach (06/24/24) Labs on day of discharge: Laboratory Results - last 24 hr 12/20/24 12/20/24 12/20/24 16:15 19:02 20:17 WBC RBC Hgb Hct MCV MCH MCHC RDW Plt Count MPV Absolute Nucleated RBC Nucleated RBC % (auto) Sodium Potassium Chloride Carbon Dioxide Anion Gap BUN Creatinine Estim Creat Clear Calc Estimated GFR POC Glucose 123 H 188 H Random Glucose Calcium Total Creatine Kinase Random Vancomycin 18.7 12/21/24 12/21/24 12/21/24 05:28 07:10 11:01 WBC 6.4 RBC 3.20 L Hgb 10.4 L Hct 31.0 L MCV 96.9 MCH 32.5 MCHC 33.5 RDW 13.8 Plt Count 228 MPV 10.1 Absolute Nucleated RBC 0.000 Nucleated RBC % (auto) 0.0 Sodium 143 Potassium 3.6 Chloride 112 H Carbon Dioxide 26 Anion Gap 9 L BUN 10 Creatinine 0.53 Estim Creat Clear Calc 98.3 Estimated GFR > 60 POC Glucose 113 182 H Random Glucose 116 H Calcium 8.0 L Total Creatine Kinase 40 Random Vancomycin Preliminary micro results at discharge 12/17/24 17:45 Blood Culture - Preliminary Blood - Venous No growth after 48 hours. 12/17/24 17:45 Blood Culture - Preliminary Blood - Venous No growth after 48 hours. Imaging Chest x-ray: My impression: mri:Osteomyelitis of the 2nd and 3rd proximal phalanges. LLE doppler:Monophasic flow within the posterior tibial artery. Diffuse atherosclerotic disease. Discharge Plan Discharge Anticipated Discharge Date/Time: 12/21/24 14:28 Patient Disposition: Home Health Service Discharge Diagnosis: left 2nd and 3rd toe acute osteomyelitis Referrals: [facility] [Other] - 1 Week Referral Note: [facility] will provide your IV antibiotics [facility] [Outside] - 1 Day Referral Note: [facility] will call you to schedule home nursing visits Amanda Cain MD [Primary Care Provider, Internal Medicine] - 1 Week Discharge Medications: New daptomycin 350 mg Recon Soln 620 mg IV Q24H Qty: 1 0RF atorvastatin 40 mg Tablet 40 mg PO BEDTIME Qty: 1 0RF Rx Instructions: hold until on daptomycin Continued glipizide 5 mg tablet extended release 24hr 5 mg PO DAILY Eliquis 5 mg tablet 5 mg PO BID omeprazole 20 mg Capsule,Delayed Release(Dr/Ec) 20 mg PO DAILY@0630 metoprolol tartrate 25 mg tablet 25 mg PO BID fluticasone propion-salmeterol 250-50 mcg/dose blister with device 1 ea inhalation BID Discharge Orders: Discharge Order (Routine); Ordered 12/21/24 Ordered By: Dori Salazar Diet: Advance to usual diet Activity on Discharge: As tolerated Stand Alone Forms: Patient Portal Discharge page Print Language: Estonian Care Plan Goals: left 2nd and 3rd toe acute osteomyelitis due to DM and PVD:started on iv vanco, blood cultrues negative ,switched to iv daptomycin -duration 6 weeks hold statin for the duration of antibiotics, monitor ESR, CRP, CPK, CMP, CBC Q weekly whole on antibiotics. Health Concerns: As above. Plan of Treatment: As above. Assessment: As above.
--- NOTE | 2024-12-21 15:34 | W.MHC.F2F ---
Service Date Service Date: 12/21/24 Encounter Date of encounter: 12/21/24 Encounter: om foot Reasons for Services Signs and symptoms assessed: any new discharge or fevers or worsening foot infection Reason for care home: CV/CP assess and/or care, wound care, medication management, medication treatment and teach disease management MD Overseeing Care: Amanda Cain Homebound: Leaving the home is medically contraindicated at this time without the asist of a device and/or another person due th the listed conditions above and below. Reason homebound: weakness related to hospital stay Homebound supporting statement: Patient is generalised weak post hospitlisation and need help with going to appointments and labs draws. Certification: Based on the above findings, I certify that this patient is confined to the home and needs intermittent care home care, physical therapy and/or speech therapy, or continues to need occupational therapy. The patient is under my care, and I have initiated the establishment of the plan of care. The patient will be followed by a physician who will periodically review the plan of care. Time Spent With Patient Time: Total time managing care of this patient today ____ minutes.
[2024-12-21 15:36] VITALS: BP 158/74; PULSE 75; RESP 20; TEMP 36.6; O2SAT 99
[2024-12-21 16:09] LABS: Glucose, Whole Blood 133 mg/dL (60-115)
--- NOTE | 2024-12-21 19:12 | HO.PICC ---
PICC Line Insertion NPICC Diagnosis: Osteomyelitis Indication: halfway ABT Pertinent Labs: reviewed Technique: Following informed consent including risks, benefits and alternatives and using sterile technique including cap and mask, sterile gown, glove and drape, the right arm was prepped and draped in the usual sterile fashion of full barrier technique with CHG. Following completion of [place] Protocol the skin and soft tissues were anesthetized with 1% Lidocaine plain. Using ultrasound guidance, right basilic vein access was obtained. Over an 0.018 wire through peel-away sheath, a 4fr single lumen PASV PICC line was positioned. Catheter length is 40cm internal length, 0cm external length, for a total trimmed length of 40cm. The procedure was performed in 272. Tip verification was not confirmed by [facility] with Sherlock 3CG D/T a-fib. Ultrasound was used to document vein patency and for needle entry. A formal ultrasound picture was obtained. Awaiting Radiologist to release the line for use and it is currently dressed with a StatLock, Tegaderm, and CHG disc. Verification has been performed for blood return and line patency. Arm Circumference: 28cm Equipment: [employer] POWERPICC SOLO catheter with Sherlock 3CG Tip Catheter Type: 4fr single lumen PASV Lot #: [id number]
--- NOTE | 2024-12-21 19:57 | PC.NURSE ---
CXR S/P PICC placement was read by [facility]. confirmed with Dr Roach that placement is appropriate for use at the cavoatrial junction. Per Dr Roach there is no need to pull catheter back.released for use.
[2024-12-21 20:00] VITALS: BP 133/60; PULSE 77; RESP 18; TEMP 36.7; O2SAT 97
[2024-12-21 20:17] LABS: Glucose, Whole Blood 190 mg/dL (60-115)
[2024-12-21] MEDS: DAPTOmycin 620 MG in 0.9 % Sodium Chloride 50 ML 100 MG IV (20:22)
[2024-12-22 03:57] VITALS: BP 117/50; PULSE 59; RESP 18; TEMP 36.5; O2SAT 96
[2024-12-22 06:29] LABS: Creatinine Clr Calc Pharmacy 100.2; Estimated Glomerular Filt Rate > 60
[2024-12-22 07:17] LABS: Glucose, Whole Blood 115 mg/dL (60-115)
[2024-12-22 07:55] VITALS: BP 169/72; PULSE 75; RESP 18; TEMP 36.3; O2SAT 98
[2024-12-22] MEDS: 0.9 % Sodium Chloride Flush 3 ML SYRINGE IVFLUSH (08:09)
--- NOTE | 2024-12-22 08:41 | MHC.CM.PN ---
Addendum entered by Nesha Martin RN 12/22/24 09:14: BLS transport running 30-60 min late. LM for to update. RN aware. Original Note: Patient w/ PICC line in place and ready for dc today. BLS transport scheduled for 930am. , RN and MD aware. Patient rec'd dapto dose at 9pm last night. Per Dr. Salazar ok to administer early today, in the afternoon/evening, as [facility] cannot see patient at 9pm. [facility] updated.
[2024-12-22 09:17] VITALS: BP 134/60; PULSE 74; RESP 12; TEMP 36.7; O2SAT 97
== END 2024-12-22 11:27 | disposition home health service (06) | DRG 300 ==
LOC: HO.ED 17:36 → HO.EDOVER 17:40 → HO.S3 19:51
PROVIDERS: Admitting Provider Internal Medicine; Emergency Provider Student in an Organized Health Care Education/Training Program; PCP Internal Medicine; Visit Provider Internal Medicine
DX: E11.51 Type 2 diabetes mellitus with diabetic peripheral angiopathy without gangrene (principal); I69.354 Hemiplegia and hemiparesis following cerebral infarction affecting left non-dominant side; M86.172 Other acute osteomyelitis, left ankle and foot; E11.69 Type 2 diabetes mellitus with other specified complication; L97.529 Non-pressure chronic ulcer of other part of left foot with unspecified severity; I70.245 Atherosclerosis of native arteries of left leg with ulceration of other part of foot; I48.0 Paroxysmal atrial fibrillation; E78.5 Hyperlipidemia, unspecified; Z79.01 Long term (current) use of anticoagulants; Z79.84 Long term (current) use of oral hypoglycemic drugs; Z79.899 Other long term (current) drug therapy
CPT/HCPCS: 36415; 36573; 71045; 73630; 73720; 80048; 80202; 82550; 82565; 82947; 83605; 85025; 85027; 85610; 85652; 86140; 87040; 87493; 87507; 93926; 99285; A9585; C1751; J0878; J2543; J3374

== ENCOUNTER → 2024-12-17 16:18 | Outpatient (BNV) | payer OTHER, SELFPAY | PROVIDERS: Admitting Provider Internal Medicine; Emergency Provider Student in an Organized Health Care Education/Training Program; Visit Provider Radiology Diagnostic Radiology | DX: M20.42 Other hammer toe(s) (acquired), left foot (principal) | CPT/HCPCS: 73630 ==

== ENCOUNTER 2024-12-17 17:38 | Outpatient (BNV) | payer OTHER, SELFPAY | END 2024-12-21 19:30 | PROVIDERS: Admitting Provider Internal Medicine; Emergency Provider Student in an Organized Health Care Education/Training Program; PCP Internal Medicine; Visit Provider Radiology Diagnostic Radiology | DX: Z45.2 Encounter for adjustment and management of vascular access device (principal) | CPT/HCPCS: 71045 ==

== ENCOUNTER 2024-12-17 17:38 | Outpatient (BNV) | payer OTHER, SELFPAY | END 2024-12-18 09:30 | PROVIDERS: Admitting Provider Internal Medicine; Emergency Provider Student in an Organized Health Care Education/Training Program; Visit Provider Radiology Vascular & Interventional Radiology | DX: M86.672 Other chronic osteomyelitis, left ankle and foot (principal); I70.202 Unspecified atherosclerosis of native arteries of extremities, left leg | CPT/HCPCS: 73720; 93926 ==

== ENCOUNTER → 2024-12-17 17:38 | Outpatient (BNV) | payer OTHER, SELFPAY | PROVIDERS: Admitting Provider Internal Medicine; Emergency Provider Student in an Organized Health Care Education/Training Program; Visit Provider Internal Medicine | DX: M86.9 Osteomyelitis, unspecified (principal) | CPT/HCPCS: 99223; 99232; 99233; 99239; G0180 ==

== ENCOUNTER → 2024-12-17 17:38 | Outpatient (BNV) | payer OTHER, SELFPAY | PROVIDERS: Admitting Provider Internal Medicine; Emergency Provider Student in an Organized Health Care Education/Training Program; Visit Provider Internal Medicine | DX: M86.9 Osteomyelitis, unspecified (principal) | CPT/HCPCS: 99222 ==

== ENCOUNTER → 2024-12-17 17:38 | Outpatient (BNV) | payer OTHER, SELFPAY | PROVIDERS: Admitting Provider Internal Medicine; Emergency Provider Student in an Organized Health Care Education/Training Program; Visit Provider Surgery Vascular Surgery | DX: I73.9 Peripheral vascular disease, unspecified (principal) | CPT/HCPCS: 99222 ==

== ENCOUNTER 2024-12-29 15:32 | Outpatient (REF) | payer OTHER, SELFPAY ==
[2024-12-29 15:44] LABS: MANUAL DIFF FLAG NO
[2024-12-29 15:48] LABS: Hematocrit 33.6 % (42.0-52.0); Hemoglobin 11.0 g/dl (14.0-18.0); Imm Gran Abs Auto 0.02 X10*3/uL (0.00-0.03); Imm Gran Pct Auto 0.3 % (0.0-0.4); Lymphocytes Absolute Auto 1.8 X10*3/uL (1.2-4.9); Mean Corpuscular HGB Conc 32.7 g/dl (31.0-36.0); Mean Corpuscular Hemoglobin 32.1 pg (27.0-33.0); Mean Corpuscular Volume 98.0 fL (80.0-98.0); NRBC Abs Auto 0.000 X10*3/uL (0.0-0.012); NRBC Pct Auto 0.0 /100WBC (0.0-0.2); Platelet Count 245 X10*3/uL (160-400); Red Blood Count 3.43 X10*6/uL (4.60-5.80); White Blood Count 7.6 X10*3/uL (4.8-10.8)
[2024-12-29 17:20] LABS: Alanine Aminotransferase 13 U/L (0-40); Albumin Level 3.5 g/dL (3.5-5.0); Alkaline Phosphatase 100 U/L (39-117); Anion Gap 10 (12-20); Aspartate Amino Transferase 20 U/L (5-37); Blood Urea Nitrogen 15 mg/dL (9-16); Calcium 8.6 mg/dL (8.4-10.2); Carbon Dioxide 28 mmol/L (22-29); Chloride 107 mmol/L (96-108); Estimated Glomerular Filt Rate > 60; Potassium 3.8 mmol/L (3.3-5.1); Sodium 141 mmol/L (135-145); Total Protein 6.9 g/dL (6.5-8.0)
--- OUTSIDE RECORDS SUMMARY | 2024-12-29 18:40 | XMS_ITS | Patient Health Record ---
Author Organization [facility] Address [address] [place] [address] Care Team Providers Care Supervisor Crack Off Name Role Phone Cecilia Corcoran Primary Care Provid er Unavailable Lamont Rangel Unavailable [phone] NICOLE, BRENT Unavailable Unavailable Reason For Referral [...] Status W/U Status Risk Notes Problem Diarrhea (90416574) Diarrhea (R19.7) Active confirmed Problem [id number] Diarrhea, unspecified type (R19.7) Active confirmed Plan [...] Insured Coverage Start Date Coverage End Date [facility] [address] [place] [address] [id number] KAREN HUGHES Self - patient is the insured MEDICAID OF [facility] [address] [place] [address] [id number] KAREN HUGHES Self - patient is the [...]
== END 2024-12-29 15:33 | disposition home or self-care (01) ==
LOC: HO.HVNA 15:32
PROVIDERS: Visit Provider Internal Medicine
DX: M86.172 Other acute osteomyelitis, left ankle and foot (principal)
CPT/HCPCS: 36415; 80053; 82550; 85025; 85652; 86140

== ENCOUNTER 2025-01-04 14:35 | Outpatient (REF) | payer OTHER, SELFPAY ==
[2025-01-04 14:37] LABS: MANUAL DIFF FLAG NO
[2025-01-04 14:47] LABS: Hematocrit 32.7 % (42.0-52.0); Hemoglobin 10.9 g/dl (14.0-18.0); Imm Gran Abs Auto 0.02 X10*3/uL (0.00-0.03); Imm Gran Pct Auto 0.3 % (0.0-0.4); Lymphocytes Absolute Auto 1.7 X10*3/uL (1.2-4.9); Mean Corpuscular HGB Conc 33.3 g/dl (31.0-36.0); Mean Corpuscular Hemoglobin 32.9 pg (27.0-33.0); Mean Corpuscular Volume 98.8 fL (80.0-98.0); NRBC Abs Auto 0.000 X10*3/uL (0.0-0.012); NRBC Pct Auto 0.0 /100WBC (0.0-0.2); Platelet Count 231 X10*3/uL (160-400); Red Blood Count 3.31 X10*6/uL (4.60-5.80); White Blood Count 7.8 X10*3/uL (4.8-10.8)
--- OUTSIDE RECORDS SUMMARY | 2025-01-04 18:15 | XMS_ITS | Patient Health Record ---
Author Organization [facility] Address [address] [place] [address] Care Team Providers Care Security Controls Assessor Name Role Phone Cecilia Corcoran Primary Care Provid er Unavailable Lamont Rangel Unavailable [phone] NICOLE, BRENT Unavailable Unavailable Reason For Referral [...] Status W/U Status Risk Notes Problem Diarrhea ([id number]) Diarrhea (R19.7) Active confirmed Problem [id number] Diarrhea, unspecified type (R19.7) Active confirmed Plan [...] Insured Coverage Start Date Coverage End Date [facility] [address] [place] [address] [id number] KAREN HUGHES Self - patient is the insured [facility] [address] [place] [address] [id number] KAREN HUGHES Self - patient is the insured Medical (General) History Medical History History ICD Code NIDDM Hypertension Asthma Pulmonary embolism COPD Denies [place] Stroke 2012--left-sided weakness---menta lly [place] Surgical History Surgery Date(Month/Year) percutaneous cholecystostomy tube in 2016 for acalculous cholecystitis-sees Dr. Cooper and is scheduled for an ultrasound of the gallbladder in January 2018 hand surgery
== END 2025-01-04 14:36 | disposition home or self-care (01) ==
LOC: HO.HVNA 14:35
PROVIDERS: Visit Provider Internal Medicine
DX: M86.172 Other acute osteomyelitis, left ankle and foot (principal)
CPT/HCPCS: 36415; 85025; 85652

== ENCOUNTER 2025-01-12 15:58 | Outpatient (REF) | payer OTHER, SELFPAY ==
[2025-01-12 16:02] LABS: MANUAL DIFF FLAG NO
[2025-01-12 16:19] LABS: Hematocrit 33.8 % (42.0-52.0); Hemoglobin 10.9 g/dl (14.0-18.0); Imm Gran Abs Auto 0.01 X10*3/uL (0.00-0.03); Imm Gran Pct Auto 0.1 % (0.0-0.4); Lymphocytes Absolute Auto 1.8 X10*3/uL (1.2-4.9); Mean Corpuscular HGB Conc 32.2 g/dl (31.0-36.0); Mean Corpuscular Hemoglobin 31.8 pg (27.0-33.0); Mean Corpuscular Volume 98.5 fL (80.0-98.0); NRBC Abs Auto 0.000 X10*3/uL (0.0-0.012); NRBC Pct Auto 0.0 /100WBC (0.0-0.2); Platelet Count 249 X10*3/uL (160-400); Red Blood Count 3.43 X10*6/uL (4.60-5.80); White Blood Count 7.1 X10*3/uL (4.8-10.8)
[2025-01-12 17:05] LABS: Alanine Aminotransferase 10 U/L (0-40); Albumin Level 3.4 g/dL (3.5-5.0); Alkaline Phosphatase 96 U/L (39-117); Anion Gap 10 (12-20); Aspartate Amino Transferase 17 U/L (5-37); Blood Urea Nitrogen 18 mg/dL (9-16); Calcium 8.5 mg/dL (8.4-10.2); Carbon Dioxide 28 mmol/L (22-29); Chloride 106 mmol/L (96-108); Estimated Glomerular Filt Rate > 60; Potassium 4.1 mmol/L (3.3-5.1); Sodium 140 mmol/L (135-145); Total Protein 6.9 g/dL (6.5-8.0)
--- OUTSIDE RECORDS SUMMARY | 2025-01-12 19:51 | XMS_ITS | Clinical Summary ---
Author Organization [facility] [address] [facility] Address [address] [place] [phone] Phone Care Team Providers Care Metallurgical Tester Name Role Phone Amanda Cain MD Primary Care Provider [phone] Allergies No known active allergies Medications fluticasone [...] (BULK) 15 g 1 12/14/19 25 Active glipiZIDE (GLUCOTROL XL) 5 mg 24 hr tablet Take 1 tablet (5 mg total) by mouth 1 (one) time each day. 90 tablet 1 07/20/19 25 025 Discontinued Active Problems Problem Noted Date Diagnosed Date Cognitive impairment 07/19/2024 Assessment & Plan (07/19/2024 12:02 PM EDT): Orders: Ambulatory referral to Neurology; Future Diabetic neuropathy ([facility] V24, [facility] V28) 1 05/16/2023 History of pulmonary embolism 03/16/2024 Bilateral carotid artery stenosis 01/27/2023 Diverticulosis, sigmoid 03/12/2021 Overview (03/16/2024): CN 03/07/21 Hammer toes of both feet 01/01/2021 Mild persistent asthma without complication 09/19 Onychomycosis 04/07/2015 Type II diabetes mellitus wi th neurological manifestations ([facility] V24, [facility] V28) 02/27/2015 Overview (03/16/2024): Podiatry note 07/31/2014 Dr. Merida Assessment & Plan (07/19/2024 12:02 PM EDT): Orders: Comprehensive metabolic panel; Future Hemoglobin A1c; Future Lipid panel with reflex to direct LDL; Future Microalbumin creatinine urine ratio; Future Urinary incontinence 03/14/2014 Atrial fibrillation ([facility] V24, [facility] V28) 0 12/08/2013 Overview (03/16/2024): Diagnosed 10/31 during hospitalisation. Echo showed impaired diastolic relaxation with normal LV function. 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 ([facility] V24, [facility] V28) 11/02/2013 Assessment & Plan (07/19/2024 12:02 PM EDT): Resolved Problems Problem Noted Date Diagnosed Date Resolved Date Diabetic foot ulcer ([facility] V24, [facility] V28) 01/01/2021 11/29/2024 Encounters Date Type Department Care Team Description 11/29/2024 11:00 AM EDT Office Visit Adult Medicine [address] [phone] Amanda Cain MD Type II diabetes mellitus with neurological manifestations ([facility] V24, [facility] V28) (Primary Dx); Mild persistent asthma without complication; Primary hypertension; Hemiparesis affecting left side as late effect of cerebrovascular accident ([facility] V24, [facility] V28); Chronic atrial fibrillation ([facility] V24, [facility] V28); Cognitive impairment; Anemia, unspecified type; Epistaxis, [...] Comments COPD (chronic obstructive pu lmonary disease) ([facility] V24, [facility] V28) 02/28/2014 Type II diabetes mellitus wi th neurological manifestations ([facility] V24, [facility] V28) 02/27/2015 Pulmonary embolism ([facility] V24, [facility] V28) 11/02/2013 Diagnosed here [facility] , on Coumadin HTN (hypertension) 11/02/2013 Hemiparesis affecting left s cedric as late effect of cerebrovascular accident ([facility] V24, [facility] V28) 11/02/2013 Atrial fibrillation ([facility] V24, [facility] V28) 12/08/2013 Diagnosed 10/31 during hospitalisation. Echo showed impaired diastolic relaxation with normal LV function. Asthma 11/02/2013 Diabetic neuropathy ([facility] V24, [facility] V28) Onychomycosis 04/07/2015 Diverticulosis, sigmoid 03/12/2021 CN [...] AM EDT Office Visit Orthopedic Surgery - [place] [address] [phone] Tommie Arzola, DPM [address] [phone] 03/31/2025 11:30 AM EST Office Visit Adult Medicine [place] [address] [place], [place] [phone] Lary Norton PA [address] [place] [phone] Health Maintenance Due Date Last Done Comments DTaP,Tdap,and Td Vaccines (1 - Tdap) 01/16/1964 Zoster Vaccines (1 of 2) 1995 Diabetes: Annual Retina Eye Exam 09/18/2017 09/18/2016, 10/09/2015 RSV Immunization Adult Patients (1 - 1-dose 75+ series) 01/16/2020 Colorectal Cancer Screening: Colonoscopy 03/29/2022 Social Influencers of Health Screening 03/29/2022 COVID-19 Vaccine ( season) 2024 Influenza Vaccine (#1) 2024 Diabetes: Blood Sugar Control Test (HGBA1C) 06/01/2025 11/29/2024, 07/19/2024, 12/07/2023, Additional history exists Diabetes: Annual Urine Albumin-Creatinine Ratio (uACR) 07/19/2025 07/19/2024, 08/14/2022, 08/14/2022, Additional history exists Diabetes: Annual GFR (Glomerular Filtration Rate) 07/19/2025 07/19/2024, 12/07/2023, 12/07/2023 Falls Risk Assessment 07/19/2025 07/19/2024, 022 Hypertension/CHF/CAD Annual BMP Blood Test 07/19/2025 [...] CBC auto differential (11/29/2024 11:48 AM EDT) [facility] WBC 7.5 4.8 - 10.8 K/mcL LAB HEMETOLOGY METHOD 11/29/2024 2:13 PM EDT [facility] RBC 3.60(L) 4.50 - 5.50 M/mcL LAB [facility]OLOG[facility] Hemoglobin 11.2(L) 13.5 - 17.5 g/dL LAB HEMETOLOGY METHOD 11/29/2024 2:[address] [facility] Hematocrit 36.2(L) 42.0 - 54.0 % LAB HEMETOLOGY METHOD 11/29/2024 2:[address] [facility] MCV 101.1(H) 79.0 - 98.0 FL LAB HEMETOLOGY METHOD 11/29/2024 2:13 PM EDT [facility] MCH 31.3 27.0 - 32.0 pcg LAB HEMETOLOGY METHOD 11/29/2024 2:[address] [facility] MCHC 30.9(L) 32.0 - 37.0 g/dL LAB HEMETOLOGY METHOD 11/29/2024 2:[address] [facility] RDW 14.0 11.0 - 15.0 % LAB HEMETOLOGY METHOD 11/29/2024 2:[address] [facility] Platelets 264 130 - 400 K/mcL LAB HEMETOLOGY METHOD 11/29/2024 2:[address] [facility] MPV 10.6 7.0 - 11.0 FL LAB HEMETOLOGY METHOD 11/29/2024 2:[address] [facility] NRBC 0.0 <1.0 % LAB HEMETOLOGY METHOD 11/29/2024 2:[address] [facility] NRBC Absolute 0.00 <0.10 K/mcL LAB HEMETOLOGY METHOD 11/29/2024 2:[address] [facility] Neutrophils Relative 57.5 % LAB HEMETOLOGY METHOD 11/29/2024 2:[address] [facility] Lymphocytes Relative 20.4 % LAB HEMETOLOGY METHOD 11/29/2024 2:[address] [facility] Monocytes Relative 6.4 % LAB HEMETOLOGY METHOD 11/29/2024 2:[address] [facility] Eosinophils Relative 14.3 % LAB HEMETOLOGY METHOD 11/29/2024 2:[address] [facility] Basophils Relative 1.1 % LAB HEMETOLOGY METHOD 11/29/2024 2:[address] [facility] Immature Granulocytes Relative 0.3 % LAB HEMETOLOGY METHOD 11/29/2024 2:[address] [facility] Neutrophils Absolute 4.31 1.50 - 7.00 K/mcL LAB HEMETOLOGY METHOD 11/29/2024 2:[address] [facility] Lymphocytes Absolute 1.53 1.00 - 5.00 K/mcL LAB HEMETOLOGY METHOD 11/29/2024 2:[address] [facility] Monocytes Absolute 0.48 0.20 - 1.00 K/mcL LAB HEMETOLOGY METHOD 11/29/2024 2:13 PM EDT [facility] Eosinophils Absolute 1.07(H) 0.00 - 0.50 K/[facility] LAB HEMETOLOGY METHOD 11/29/2024 2:13 PM EDT [facility] Basophils Absolute 0.08 0.00 - 0.20 K/[facility] LAB HEMETOLOGY METHOD 11/29/2024 2:13 PM EDT [facility] Immature Granulocytes Absolute 0.02 0.00 - 0.03 K/[facility] LAB HEMETOLOGY METHOD 11/29/2024 2:13 PM EDT [facility] Blood Venous blood specimen / Unknown Venipuncture / Unknown 11/29/2024 11:48 AM EDT 11/29/2024 11:48 AM EDT us Amanda Cain MD LAB BLOOD ORDERABLES Final Resul t [facility] [address] [place] [address], [place] [phone] * Hemoglobin A1c (11/29/2024 11:48 AM EDT) Hemoglobin A1C 6.0 <6.5 % LAB CHEMISTRY METHOD 11/29/2024 6:21 PM EDT [facility] Mean Bld Glu Estim. 126 mg/dL LAB CHEMISTRY METHOD 11/29/2024 6:21 PM EDT [facility] Blood Venous blood specimen / Unknown Venipuncture / Unknown 11/29/2024 11:48 AM EDT 11/29/2024 11:48 AM EDT us Amanda Cain MD LAB BLOOD ORDERABLES Final Resul t [facility] [address] [place] [address], [place] [phone] * Folate (11/29/2024 11:48 AM EDT) [facility] Folate 8.5 2.8 - 17.0 ng/ml LAB CHEMISTRY METHOD 11/29/2024 3:33 PM EDT [facility] Blood Venous blood specimen / Unknown Venipuncture / Unknown 11/29/2024 11:48 AM EDT 11/29/2024 11:48 AM EDT Amanda Cain MD LAB BLOOD ORDERABLES Final Resul t [facility] [address] [place] [address], [place] [phone] * Vitamin B12 (11/29/2024 11:48 AM EDT) [facility] Vitamin B-12 286 250 - 900 pcg/mL LAB CHEMISTRY METHOD 11/29/2024 3:33 PM EDT [facility] Blood Venous blood specimen / Unknown Venipuncture / Unknown 11/29/2024 11:48 AM EDT 11/29/2024 11:48 AM EDT Amanda Cain MD LAB BLOOD ORDERABLES Final Resul t Performing Organization Address [facility]/ZIP Co de Phone Number [facility] [address] [place] [address], [place] [phone] * Microalbumin creatinine urine ratio (07/19/2024 1:54 PM EDT) [facility] Creatinine, Urine 90.0 mg/dL LAB CHEMISTRY METHOD 07/19/2024 8:06 PM EDT [facility] Microalb, Ur 5.2 0.0 - 29.0 mg/L LAB CHEMISTRY METHOD 07/19/2024 8:06 PM EDT [facility] Microalb/Creat Ratio 6 <30 mg/g creat LAB CHEMISTRY METHOD 07/19/2024 8:06 PM EDT [facility] Urine Urine specimen obtained by clean catch procedure / Unknown Non-blood Collection / Unknown 07/19/2024 1:54 PM EDT 07/19/2024 1:54 PM EDT us Amanda Cain MD LAB URINE ORDERABLES Final Resul t Performing Organization Address City/[facility]/ZIP Co de Phone Number [facility] [address] [place] [address], [place] [phone] * (ABNORMAL) Lipid panel with reflex to direct LDL (07/19/2024 12:12 PM EDT) Cholesterol 132 0 - 200 mg/dL LAB CHEMISTRY METHOD 07/19/2024 4:56 PM EDT [facility] Triglycerides 92 0 - 150 mg/dL LAB CHEMISTRY METHOD 07/19/2024 4:56 PM EDT [facility] HDL 37(L) >=40 mg/dL LAB CHEMISTRY METHOD 07/19/2024 4:56 PM EDT [facility] LDL Calculated 77 0 - 100 mg/dL LAB CHEMISTRY METHOD 07/19/2024 4:56 PM EDT [facility] VLDL Cholesterol Cecil 18.4 mg/dL LAB CHEMISTRY METHOD 07/19/2024 4:56 PM EDT [facility] Non HDL Chol. (LDL+VLDL) 95 <145 mg/dL LAB CHEMISTRY METHOD 07/19/2024 4:56 PM EDT [facility] Chol/HDL Ratio 3.6 0.0 - 4.4 LAB CHEMISTRY METHOD 07/19/2024 4:56 PM EDT [facility] Blood Venous blood specimen / Unknown Venipuncture / Unknown 07/19/2024 12:12 PM EDT 07/19/2024 12:12 PM EDT us Amanda Cain MD LAB BLOOD ORDERABLES Final Resul t [facility] [address] [place] [address], * (ABNORMAL) Comprehensive metabolic panel (07/19/2024 12:12 PM EDT) Sodium 137 133 - 145 mmol/L LAB CHEMISTRY METHOD 07/19/2024 5:[address] [facility] Potassium 4.2 3.5 - 5.5 mmol/L LAB CHEMISTRY METHOD 07/19/2024 5:[address] [facility] Chloride 103 96 - 110 mmol/L LAB CHEMISTRY METHOD 07/19/2024 5:[address] [facility] CO2 29 21 - 32 mmol/L LAB CHEMISTRY METHOD 07/19/2024 5:[address] [facility] Anion Gap 5 3 - 11 LAB CHEMISTRY METHOD 07/19/2024 5:[address] [facility] Glucose 215(H) 70 - 100 mg/dL LAB CHEMISTRY METHOD 07/19/2024 5:[address] [facility] BUN 14 5 - 25 mg/dL LAB CHEMISTRY METHOD 07/19/2024 5:[address] [facility] Creatinine 0.69(L) 0.70 - 1.30 mg/dL LAB CHEMISTRY METHOD 07/19/2024 5:[address] [facility] eGFR 94 >=60 mL/min/1. 73m2 LAB CHEMISTRY METHOD 07/19/2024 5:[address] [facility] Comment:Calculation based on the Chronic Kidney Disease Epidemiology Collaboration (CKD-EPI) equation refit without adjustment for race. BUN/Creatinine Ratio 20.3 LAB CHEMISTRY METHOD 07/19/2024 5:[address] [facility] Calcium 8.7 8.5 - 10.5 mg/dL LAB CHEMISTRY METHOD 07/19/2024 5:[address] [facility] AST (SGOT) 9(L) 10 - 42 unit/L LAB CHEMISTRY METHOD 07/19/2024 5:08 PM EDT [facility] ALT (SGPT) 12 10 - 60 unit/L LAB CHEMISTRY METHOD 07/19/2024 5:08 PM EDT [facility] Alkaline Phosphatase 94 42 - 121 unit/L LAB CHEMISTRY METHOD 07/19/2024 5:08 PM EDT [facility] Total Protein 6.8 6.0 - 8.0 g/dL LAB CHEMISTRY METHOD 07/19/2024 5:08 PM EDT [facility] Albumin 2.9(L) 3.2 - 5.0 g/dL LAB CHEMISTRY METHOD 07/19/2024 5:08 PM EDT [facility] Total Bilirubin 0.3 0.0 - 1.4 mg/dL LAB CHEMISTRY METHOD 07/19/2024 5:08 PM EDT [facility] Blood Venous blood specimen / Unknown Venipuncture / Unknown 07/19/2024 12:12 PM EDT 07/19/2024 12:12 PM EDT Amanda Cain MD LAB BLOOD ORDERABLES Final Resul t [facility] [address] [place] [address], * Diabetes Foot Exam (01/12/2024) Pathologist [facility] Diabetes: Annual Foot Exam abstracted Historical Provider HEALTH MAINTENANCE Final Result * Depression Screening (12/07/2023) Pathologist [facility] Depression Screening abstracted Historical Provider HEALTH MAINTENANCE Final Result * Hepatitis C Screening (12/02/2013) Pathologist [facility] Hepatitis C Screening abstracted Historical Provider HEALTH MAINTENANCE Final Result from Last 3 Months or Most Recently Relevant to Health Maintenance Insurance [facility] MEDIC[facility] Member Subscriber Plan / Payer (Ef fective 2014-Present) Name:Frederick Jaimes Relation to Subscriber:Self Name:Frederick Jaimes Payer ID:[id number] Group ID:[id number] Type:Not on file Address: [address] [facility] [place] [address] Care Teams Metallurgical Tester Relationship Specialty Start Date End Date Amanda Cain MD [address] [place] [address] PCP - General Internal Medicine 11/08/20
--- OUTSIDE RECORDS SUMMARY | 2025-01-12 19:51 | XMS_ITS | Data Portability ---
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 He is now a mouth breather. Nasal endoscopy confirms the polyps are valles and obstructing. Treatment options discussed including oral steroids were not recommended as they may cause harm and interaction with his other medications and his diabetes and dementia. Surgical options are also not recommended given his significant comorbidities and need for blood thinner. Injectable options for immunotherapy were discussed but also not recommended given there expense and possible immune modulation. At this point I do not recommend any intervention for his nasal polyps as each of the interventions has risks that may cause him significant harm dplosky Not available 03/04/2024 15:31:25 Plan of Treatment Reminders Order Date Submit Date Provider Last Modified By Organization Details Last Modified Time Details Appointments Establish ed 15 2024 01:45P M JACKIE HYDE MD Not available Not available Not available Lab None recorded. Referral None recorded. Procedures None recorded. Surgeries None recorded. Imaging None recorded. Medication Orders None recorded. Patient TargetsNo targets recorded. Patient InstructionsNo instructions recorded. Reason for Referral None Reported. Problems Name Problem SNOMED Code Status Onset Date Resolution Date Notes Provider Name and Address Organization Details Recorded Time Nasal congestion 86329344 Active 2018 Nasal conges tion; Note: Date Diagno sed: 019 10:04 AM (R09.8 1) Not Available [facility] 4 03:28:22 Common cold 58717149 Active 2018 Acute rhinit is; Note: Date Diagno sed: 12:51 PM (J00) Not Available [facility] 4 03:28:23 Polyp of nasal cavity 829569862 Active 2018 Polyp of nasal cavity ; Note: Date Diagno sed: 11:58 AM (J33.0 ) JACK[facility] HY[facility] [address] [facility] [place],[facility], [place], [address] , [place] - [facility] 4 14:21:56 Hemiplegia and/or hemiparesi s following stroke 9021249559962 7 Active 2023 JACKIE HYDE MD [address] [place], [place] [address]on [place] [facility], [place], [place], [address] , [place] - [facility] 4 15:32:13 Type 2 diabetes mellitus 42281093 Active 2023 JACKIE HYDE MD [address] [place], [place] [address]on [place] [facility], [place], [place], [address] , [place] - [facility] 4 15:32:24 Dementia 94364378 Active 2023 JACKIE HYDE MD [address] [place], [place] [address]on [place] [address], [place], [place], [address] , [place] - [facility] 4 15:32:33 Problem Notes None recorded. Procedures Surgical History Date Name Laterality Status Provider Name and Address Organization Details Recorded Time 03/04/2024 NasalEndos copy_DP completed JACKIE HYDE MD [address] [place], [place] [address]on [place] [facility], [place], [address], [place] - [facility] 03/04/2024 15:29:03 Imaging Results None recorded. Procedure Notes None recorded. Medical Equipment None Reported. Medications Name Sig Start Date Stop Date Status Note LastModified by Organization Details LastModified Time atorvastati n 40 mg tablet active Not Available Not Available Not Available fluticasone 250 mcg-salmete rol 50 mcg/dose blistr powdr for inhalation active Not Available Not Available N ot Available atorvastati n 20 mg tablet 03/04 completed Medication ID: [id number] Dur ation Value: 90 Brand Name: atorvastat in Send Method: E-Prescrib ed Subs Allowed: subs OK Special Instructio n: TAKE 1 TABLET IN THE EVENING Me dicationGe nericName: atorvastat in Not Available Not Available Not Available cetirizine 10 mg tablet active Not Available Not Available Not Available FreeStyle Lancets 28 gauge active Not Available Not Available Not Available enalapril maleate 2.5 mg tablet active Not Available Not Available No t Available glipizide ER 5 mg tablet, extended release 24 hr active Not Available Not Available Not Available warfarin 5 mg tablet 03/04 completed Medication ID: [id number] Dur ation Value: 90 Brand Name: warfarin S end Method: E-Prescrib ed Subs Allowed: subs OK Special Instructio n: TAKE 1 & 1/2 TO 2 TABLETS BY MOUTH EVERY DAY DIRECTED M edicationG enericName : warfarin Not Available Not Available Not Available omeprazole 20 mg capsule,del ayed release active Not Available Not Available Not Available fluticasone propionate 50 mcg/actuati on nasal spray,suspe nsion active Not Available Not Available Not Available mometasone 0.1 % topical cream active Not Available Not Available Not Available FreeStyle Lite Strips active Not Available Not Available Not Available Eliquis 5 mg tablet active Not Available Not Available No t Available Vitals Date Recorded Body height Body mass index (BMI) Body weight Provider Name and Address Organization Details Last Updated DateTime 03/04/2024 175.26 cm 23.6 kg/m2 13979.78 g Norma Barron [place] - [facility] 03/04/2024 15:02:18 Social History None recorded. Functional Status None recorded. Mental Status None recorded. Family History Nothing Reported. Medical History Condition Response Diabetes Y Asthma Y Hypertension Y Past Encounters Encounter ID Performer Location Encounter Start Date Encounter Closed Date Diagnosis/Indication Diagnosis SNOMED-CT Code Diagnosis ICD10 Code Diagnosis IMO Codes Diagnosis Note [id number] JACKIE HYDE MD [facility] [address] [address] 03/04/2024 14:42:13 03/04/2024 15:30:26 Polyp of nasal cavity 227684774 J33.0 Type 2 shannon betes mellitus 10172562 E11.21 Dementia 03617806 F03.90 History of cerebrovascular accident 790056453 Z86.73 Hemiplegia and/or hemiparesis following stroke 7687416478 9107 I69.359 Health Concerns Section Related Observation LastModified by Organization Detai ls LastModified Time None Recorded Concern Status LastModified by Organization Details LastModified Time None Recorded Advance Directives Directive None Recorded Payers Insurance Date Sequence Insurance Name Policy Number Policy Moore Covered Member ID Moore Member ID Guarantor Name 03/04/2024 1 [facility] (MEDICARE REPLACEMENT/ADV ANTAGE - HMO) Frederick Drew [id number] Frederick Drew 03/04/2024 1 [facility] - DOS ON OR AFTER 2022 - SNF OPTIONS AND ONE CARE (MEDICARE REPLACEMENT/ADV ANTAGE - PPO) Frederick Drew [id number] Frederick Drew Notes Date Note Type Note Provider Name and Address Organization Details Recorded Time 03/04/2024 text/html ROS as noted in the HPI Indonesian - son translatingnasal polypssx of nasal congestionrx fluticasone has been helpfulmouth breather in general - cannot tell if one side of nose is betterno epistaxisno prior nose surgeryno imaging yet PV 09/01/2018 RE - B middle meatus polyps. imaging requested pmhx - DM2, Left hemiparesis after CVA 2014 on apixaban, dementia JACKIE HYDE MD [address] [place] [address],[place] [address], [place], [address], [facility] - [facility] 03/04/2024 15:32:59
--- OUTSIDE RECORDS SUMMARY | 2025-01-12 19:51 | XMS_ITS | Patient Health Record ---
Author Organization [facility] Address [address] [place] [address] Care Team Providers Care Telephone Diaphragm Assembler Name Role Phone Cecilia Corcoran Primary Care Provid er Unavailable Lamont Rangel Unavailable [phone] NICOLE, BRENT Unavailable Unavailable Reason For Referral [...] Status W/U Status Risk Notes Problem Diarrhea (02749100) Diarrhea (R19.7) Active confirmed Problem 48644253 Diarrhea, unspecified type (R19.7) Active confirmed Plan [...] Insured Coverage Start Date Coverage End Date [facility] [address] [place] [address] [id number] KAREN HUGHES Self - patient is the insured [facility] [address] [place] [address] [id number] KAREN HUGHES Self - patient is the insured Medical (General) History Medical History History ICD Code NIDDM Hypertension Asthma Pulmonary embolism COPD Denies [place] Stroke 2012--left-sided weakness---menta lly [place] Surgical History Surgery Date(Month/Year) percutaneous cholecystostomy tube in 2016 for acalculous cholecystitis-sees Dr. Cooper and is scheduled for an ultrasound of the gallbladder in January 2018 hand surgery
== END 2025-01-12 15:59 | disposition home or self-care (01) ==
LOC: HO.HVNA 15:58
PROVIDERS: Visit Provider Internal Medicine
DX: M86.172 Other acute osteomyelitis, left ankle and foot (principal)
CPT/HCPCS: 36415; 80053; 82550; 85025; 85652; 86140

== ENCOUNTER 2025-01-19 13:52 | Outpatient (REF) | payer OTHER, SELFPAY ==
[2025-01-19 14:41] LABS: Alanine Aminotransferase 10 U/L (0-40); Albumin Level 3.2 g/dL (3.5-5.0); Alkaline Phosphatase 91 U/L (39-117); Anion Gap 7 (12-20); Aspartate Amino Transferase 19 U/L (5-37); Blood Urea Nitrogen 14 mg/dL (9-16); Calcium 8.4 mg/dL (8.4-10.2); Carbon Dioxide 30 mmol/L (22-29); Chloride 108 mmol/L (96-108); Estimated Glomerular Filt Rate > 60; Potassium 4.0 mmol/L (3.3-5.1); Sodium 141 mmol/L (135-145); Total Protein 6.6 g/dL (6.5-8.0)
--- OUTSIDE RECORDS SUMMARY | 2025-01-19 15:34 | XMS_ITS | Patient Health Record ---
Author Organization [facility] Address [address] [place] [address] Care Team Providers Care Neon Tube Bender Name Role Phone Cecilia Corcoran Primary Care Provid er Unavailable Lamont Rangel Unavailable [phone] NICOLE, BRENT Unavailable Unavailable Reason For Referral [...] Status W/U Status Risk Notes Problem Diarrhea (17491072) Diarrhea (R19.7) Active confirmed Problem 71330379 Diarrhea, unspecified type (R19.7) Active confirmed Plan [...] Insured Coverage Start Date Coverage End Date [facility] [address] [place] [address] [id number] KAREN HUGHES Self - patient is the insured [facility]ICAID [facility] [address] [place] [address] [id number] KAREN HUGHES Self - patient is the insured Medical (General) History Medical History History ICD Code NIDDM Hypertension Asthma Pulmonary embolism COPD Denies [place] Stroke 2012--left-sided weakness---menta lly [place] Surgical History Surgery Date(Month/Year) percutaneous cholecystostomy tube in 2016 for acalculous cholecystitis-sees Dr. Cooper and is scheduled for an ultrasound of the gallbladder in January 2018 hand surgery
--- OUTSIDE RECORDS SUMMARY | 2025-01-19 15:34 | XMS_ITS | Clinical Summary ---
Author Organization [facility] Address [address] [place] [phone] Phone Care Team Providers Care Cra Name Role Phone Amanda Cain MD Primary Care Provider [phone] Allergies No known active allergies Medications fluticasone [...] DAY ^1R4 30 tablet 05/24/19 25 Active metoprolol tartrate (LOPRESSOR) 25 mg [...] (BULK) 15 g 1 12/14/19 25 Active omeprazole (PriLOSEC) [address] capsule Take 1 capsule (20 mg total) by mouth 1 (one) time each day before breakfast. 30 capsule 1 01/26/20 25 Active omeprazole (PriLOSEC) [address] capsule TAKE ONE CAPSULE BY MOUTH EVERY DAY BEFORE BREAKFAST^1R4 30 capsule 5 07/28/19 25 025 Discontinued Active Problems Problem Noted Date Diagnosed Date Cognitive impairment 07/19/2024 Assessment & Plan (07/19/2024 12:02 PM EDT): Orders: Ambulatory referral to Neurology; Future Diabetic neuropathy ([facility] V24, [facility] V28) 1 05/16/2023 History of pulmonary embolism 03/16/2024 Bilateral carotid artery stenosis 01/27/2023 Diverticulosis, sigmoid 03/12/2021 Overview (03/16/2024): CN 03/07/21 Hammer toes of both feet 01/01/2021 Mild persistent asthma without complication 09/19 Onychomycosis 04/07/2015 Type II diabetes mellitus wi th neurological manifestations ([facility] V24, [facility] V28) 02/27/2015 Overview (03/16/2024): Podiatry note 07/31/2014 Dr. Merida Assessment & Plan (07/19/2024 12:02 PM EDT): Orders: Comprehensive metabolic panel; Future Hemoglobin A1c; Future Lipid panel with reflex to direct LDL; Future Microalbumin creatinine urine ratio; Future Urinary incontinence 03/14/2014 Atrial fibrillation ([facility] V24, [facility] V28) 0 12/08/2013 Overview (03/16/2024): Diagnosed 10/31 during hospitalisation. Echo showed impaired diastolic relaxation with normal LV function. 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 ([facility] V24, [facility] V28) 11/02/2013 Assessment & Plan (07/19/2024 12:02 PM EDT): Resolved Problems Problem Noted Date Diagnosed Date Resolved Date Diabetic foot ulcer ([facility] V24, [facility] V28) 01/01/2021 11/29/2024 Encounters Date Type Department Care Team Description 11/29/2024 11:00 AM EDT Office Visit Adult Medicine [address] [phone] Amanda Cain MD Type II diabetes mellitus with neurological manifestations ([facility] V24, [facility] V28) (Primary Dx); Mild persistent asthma without complication; Primary hypertension; Hemiparesis affecting left side as late effect of cerebrovascular accident ([facility] V24, [facility] V28); Chronic atrial fibrillation ([facility] V24, [facility] V28); Cognitive impairment; Anemia, unspecified type; Epistaxis, recurrent from Last 3 Months Immunizations Immunization Administration Dates Next Due Pneumococcal conjugate 13 [...] Comments COPD (chronic obstructive pu lmonary disease) ([facility] V24, [facility] V28) 02/28/2014 Type II diabetes mellitus wi th neurological manifestations ([facility] V24, [facility] V28) 02/27/2015 Pulmonary embolism ([facility] V24, [facility] V28) 11/02/2013 Diagnosed here in [facility] , on Coumadin HTN (hypertension) 11/02/2013 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 Echo showed impaired diastolic relaxation with normal LV function. Asthma 11/02/2013 Diabetic neuropathy ([facility] V24, [facility] V28) Onychomycosis 04/07/2015 Diverticulosis, sigmoid [...] AM EDT Office Visit Orthopedic Surgery - [place] [address] [phone] Tommie Arzola, DPHuyen [address] [phone] 03/31/2025 11:30 AM EST Office Visit Adult [address] [place], [place] [phone] Lary Norton PA [address] [place] [phone] Health Maintenance Due Date Last Done Comments Colorectal Cancer Screening: Colonoscopy 1945 DTaP,Tdap,and Td Vaccines (1 - Tdap) 01/16/1964 Zoster Vaccines (1 of 2) 1995 Diabetes: Annual Retina Eye Exam 09/18/2017 09/18/2016, 10/09/2015 RSV Immunization Adult Patients (1 - 1-dose 75+ series) 01/16/2020 Social Influencers of Health Screening 03/29/2022 COVID-19 Vaccine ( - 2023- season) 2024 Influenza Vaccine (#1) 2024 Diabetes: [...] 07/19/2029 07/19/2024, 04/29/2023, 04/29/2023, Additional history exists Pneumococcal Vaccine: 50+ Years Completed 09/04/2016, 06/27/2015 [...] EXAM Routine 01/12/2024 DEPRESSION SCREENING Routine 12/07/2023 from Last 3 Months or Most Recently Relevant to Health Maintenance Results * (ABNORMAL) CBC auto differential (11/29/2024 11:48 AM EDT) [facility] WBC 7.5 4.8 - 10.8 K/mcL LAB HEMETOLOGY METHOD 11/29/2024 2:13 PM [facility] RBC 3.60(L) 4.50 - 5.50 M/mcL LAB HEMETOLOGY METHOD 11/29/2024 2:13 PM [facility] Hemoglobin 11.2(L) 13.5 - 17.5 g/dL LAB HEMETOLOGY METHOD 11/29/2024 2:13 PM [facility] Hematocrit 36.2(L) 42.0 - 54.0 % LAB HEMETOLOGY METHOD 11/29/2024 2:13 PM [facility] MCV 101.1(H) 79.0 - 98.0 FL LAB HEMETOLOGY METHOD 11/29/2024 2:13 PM [facility] MCH 31.3 27.0 - 32.0 pcg LAB HEMETOLOGY METHOD 11/29/2024 2:13 PM [facility] MCHC 30.9(L) 32.0 - 37.0 g/dL LAB HEMETOLOGY METHOD 11/29/2024 2:13 PM [facility] RDW 14.0 11.0 - 15.0 % LAB HEMETOLOGY METHOD 11/29/2024 2:13 PM [facility] Platelets 264 130 - 400 K/mcL LAB HEMETOLOGY METHOD 11/29/2024 2:13 PM [facility] MPV 10.6 7.0 - 11.0 FL LAB HEMETOLOGY METHOD 11/29/2024 2:13 PM [facility] NRBC 0.0 <1.0 % LAB HEMETOLOGY METHOD 11/29/2024 2:13 PM [facility] NRBC Absolute 0.00 <0.10 K/mcL LAB HEMETOLOGY METHOD 11/29/2024 2:13 PM [facility] Neutrophils Relative 57.5 % LAB HEMETOLOGY METHOD 11/29/2024 2:13 PM [facility] Lymphocytes Relative 20.4 % LAB HEMETOLOGY METHOD 11/29/2024 2:13 PM [facility] Monocytes Relative 6.4 % LAB HEMETOLOGY METHOD 11/29/2024 2:13 PM [facility] Eosinophils Relative 14.3 % LAB HEMETOLOGY METHOD 11/29/2024 2:13 PM [facility] Basophils Relative 1.1 % LAB HEMETOLOGY METHOD 11/29/2024 2:13 PM [facility] Immature Granulocytes Relative 0.3 % LAB HEMETOLOGY METHOD 11/29/2024 2:13 PM [facility] Neutrophils Absolute 4.31 1.50 - 7.00 K/mcL LAB HEMETOLOGY METHOD 11/29/2024 2:13 PM [facility] Lymphocytes Absolute 1.53 1.00 - 5.00 K/mcL LAB HEMETOLOGY METHOD 11/29/2024 2:13 PM [facility] Monocytes Absolute 0.48 0.20 - 1.00 K/mcL LAB HEMETOLOGY METHOD 11/29/2024 2:13 PM [facility] Eosinophils Absolute 1.07(H) 0.00 - 0.50 K/mcL LAB HEMETOLOGY METHOD 11/29/2024 2:13 PM EDT [facility] Basophils Absolute 0.08 0.00 - 0.20 K/[facility] LAB HEMETOLOGY METHOD 11/29/2024 2:13 PM EDT [facility] Immature Granulocytes Absolute 0.02 0.00 - 0.03 K/[facility] LAB HEMETOLOGY METHOD 11/29/2024 2:13 PM EDT [facility] Blood Venous blood specimen / Unknown Venipuncture / Unknown 11/29/2024 11:48 AM EDT 11/29/2024 11:48 AM EDT us Amanda Cain MD LAB BLOOD ORDERABLES Final Resul t Performing Organization Address City/[facility]/ZIP Co de Phone Number [facility] [address] [place] [address], [place] [phone] * Hemoglobin A1c (11/29/2024 11:48 AM EDT) Hemoglobin A1C 6.0 <6.5 % LAB CHEMISTRY METHOD 11/29/2024 6:21 PM EDT [facility] Mean Bld Glu Estim. 126 mg/dL LAB CHEMISTRY METHOD 11/29/2024 6:21 PM EDT [facility] Blood Venous blood specimen / Unknown Venipuncture / Unknown 11/29/2024 11:48 AM EDT 11/29/2024 11:48 AM EDT us Amanda Cain MD LAB BLOOD ORDERABLES Final Resul t [facility] [address] [place] [address], [place] [phone] * Folate (11/29/2024 11:48 AM EDT) Folate 8.5 2.8 - 17.0 ng/ml LAB CHEMISTRY METHOD 11/29/2024 3:33 PM EDT [facility] Blood Venous blood specimen / Unknown Venipuncture / Unknown 11/29/2024 11:48 AM EDT 11/29/2024 11:48 AM EDT us Amanda Cain MD LAB BLOOD ORDERABLES Final Resul t [facility] [address] [place] [address], [place] [phone] * Vitamin B12 (11/29/2024 11:48 AM EDT) Vitamin B-12 286 250 - 900 pcg/mL LAB CHEMISTRY METHOD 11/29/2024 3:33 PM EDT [facility] Blood Venous blood specimen / Unknown Venipuncture / Unknown 11/29/2024 11:48 AM EDT 11/29/2024 11:48 AM EDT us Amanda Cain MD LAB BLOOD ORDERABLES Final Resul t [facility] [address] [place] [address], [place] [phone] * Microalbumin creatinine urine ratio (07/19/2024 1:54 PM EDT) Creatinine, Urine 90.0 mg/dL LAB CHEMISTRY METHOD 07/19/2024 8:06 PM EDT [facility] Microalb, Ur 5.2 0.0 - 29.0 mg/L LAB CHEMISTRY METHOD 07/19/2024 8:06 PM EDT [facility] Microalb/Creat Ratio 6 <30 mg/g creat LAB CHEMISTRY METHOD 07/19/2024 8:06 PM EDT [facility] Urine Urine specimen obtained by clean catch procedure / Unknown Non-blood Collection / Unknown 07/19/2024 1:54 PM EDT 07/19/2024 1:54 PM EDT us Amanda Cain MD LAB URINE ORDERABLES Final Resul t Performing Organization Address City/[facility]/ZIP Co de Phone Number [facility] [address] [place] [address], [place] [phone] * (ABNORMAL) Lipid panel with reflex to direct LDL (07/19/2024 12:12 PM EDT) Cholesterol 132 0 - 200 mg/dL LAB CHEMISTRY METHOD 07/19/2024 4:56 PM EDT [facility] Triglycerides 92 0 - 150 mg/dL LAB CHEMISTRY METHOD 07/19/2024 4:56 PM EDT [facility] HDL 37(L) >=40 mg/dL LAB CHEMISTRY METHOD 07/19/2024 4:56 PM EDT [facility] LDL Calculated 77 0 - 100 mg/dL LAB CHEMISTRY METHOD 07/19/2024 4:56 PM EDT [facility] VLDL Cholesterol Cecil 18.4 mg/dL LAB CHEMISTRY METHOD 07/19/2024 4:56 PM EDT [facility] Non HDL Chol. (LDL+VLDL) 95 <145 mg/dL LAB CHEMISTRY METHOD 07/19/2024 4:56 PM EDT [facility] Chol/HDL Ratio 3.6 0.0 - 4.4 LAB CHEMISTRY METHOD 07/19/2024 4:56 PM EDT [facility] Blood Venous blood specimen / Unknown Venipuncture / Unknown 07/19/2024 12:12 PM EDT 07/19/2024 12:12 PM EDT us Amanda Cain MD LAB BLOOD ORDERABLES Final Resul t Performing Organization Address City/[facility]/ZIP Co de Phone Number [facility] [address] [place] [address], [place] [phone] * (ABNORMAL) Comprehensive metabolic panel (07/19/2024 12:12 PM [facility]) Sodium 137 133 - 145 mmol/L LAB CHEMISTRY METHOD 07/19/2024 5:08 PM [facility] Potassium 4.2 3.5 - 5.5 mmol/L LAB CHEMISTRY METHOD 07/19/2024 5:08 PM [facility] Chloride 103 96 - 110 mmol/L LAB CHEMISTRY METHOD 07/19/2024 5:08 PM [facility] CO2 29 21 - 32 mmol/L LAB CHEMISTRY METHOD 07/19/2024 5:08 PM [facility] Anion Gap 5 3 - 11 LAB CHEMISTRY METHOD 07/19/2024 5:08 PM [facility] Glucose 215(H) 70 - 100 mg/dL LAB CHEMISTRY METHOD 07/19/2024 5:08 PM [facility] BUN 14 5 - 25 mg/dL LAB CHEMISTRY METHOD 07/19/2024 5:08 PM [facility] Creatinine 0.69(L) 0.70 - 1.30 mg/dL LAB CHEMISTRY METHOD 07/19/2024 5:08 PM [facility] eGFR 94 >=60 mL/min/1. 73m2 LAB CHEMISTRY METHOD 07/19/2024 5:08 PM [facility] Comment:Calculation based on the Chronic Kidney Disease Epidemiology Collaboration (CKD-EPI) equation refit without adjustment for race. BUN/Creatinine Ratio 20.3 LAB CHEMISTRY METHOD 07/19/2024 5:08 PM [facility] Calcium 8.7 8.5 - 10.5 mg/dL LAB CHEMISTRY METHOD 07/19/2024 5:08 PM [facility] AST (SGOT) 9(L) 10 - 42 unit/L LAB CHEMISTRY METHOD 07/19/2024 5:08 PM [facility] ALT (SGPT) 12 10 - 60 unit/L LAB CHEMISTRY METHOD 07/19/2024 5:08 PM EDT [facility] Alkaline Phosphatase 94 42 - 121 unit/L LAB CHEMISTRY METHOD 07/19/2024 5:08 PM EDT [facility] Total Protein 6.8 6.0 - 8.0 g/dL LAB CHEMISTRY METHOD 07/19/2024 5:08 PM EDT [facility] Albumin 2.9(L) 3.2 - 5.0 g/dL LAB CHEMISTRY METHOD 07/19/2024 5:08 PM EDT [facility] Total Bilirubin 0.3 0.0 - 1.4 mg/dL LAB CHEMISTRY METHOD 07/19/2024 5:08 PM EDT [facility] Blood Venous blood specimen / Unknown Venipuncture / Unknown 07/19/2024 12:12 PM EDT 07/19/2024 12:12 PM EDT us Amanda Cain MD LAB BLOOD ORDERABLES Final Resul t [facility] [address] [place] [address], [place] [phone] * Diabetes Foot Exam (01/12/2024) [facility] Diabetes: Annual Foot Exam abstracted Historical Provider HEALTH MAINTENANCE Final Result * Depression Screening (12/07/2023) [facility] Depression Screening abstracted Historical Provider HEALTH MAINTENANCE Final Result from Last 3 Months or Most Recently Relevant to Health Maintenance Insurance [facility] MEDICARE Member Subscriber Plan / Payer (Ef fective 2014-Present) Name:Frederick Jaimes Relation to Subscriber:Self Name:Frederick Jaimes Payer ID:[id number] Group ID:[id number] Type:Not on file Address: [address] [phone] Care Teams Cra Relationship Specialty Start Date End Date Amanda Cain MD [address] [place] [address] PCP - General Internal Medicine 11/08/20
== END 2025-01-19 13:53 | disposition home or self-care (01) ==
LOC: HO.HVNA 13:52
PROVIDERS: Visit Provider Internal Medicine
DX: M86.172 Other acute osteomyelitis, left ankle and foot (principal)
CPT/HCPCS: 36415; 80053; 82550; 85652; 86140